=== PATIENT | female | born 1955 | race Caucasian/White ===

== ENCOUNTER → 2021-08-11 | Outpatient (CLI) | payer MEDICARE, SELFPAY ==
--- NOTE | 2021-08-11 12:53 | CT_ITS ---
STUDY: CT SOFT TISSUE NECK WITH CONTRAST REASON FOR EXAM: Female, 66 years old. CERVICALGIA. MARKED WITH BB RADIATION DOSAGE (If Supplied By Facility): CTDIvol = ( 14.01 ) mGy, DLP = ( 416.65 ) mGycm TECHNIQUE: The patient was scanned in a multi-detector CT scanner. High resolution transaxial imaging was performed following intravenous administration of IV 75mL Isovue-300. Sagittal and coronal images were reconstructed. Individualized dose optimization techniques were used for this CT. COMPARISON: None. FINDINGS: Normal bilateral parotid glands. Normal bilateral head of design spaces. Normal bilateral parapharyngeal spaces. Normal bilateral carotid spaces. Normal bilateral sublingual and submandibular glands and spaces. Normal visualized nasopharynx. Normal retropharyngeal space. Normal perivertebral space. Normal visualized bilateral faucial tonsils. The visualized tongue, tongue base and oropharynx are normal. The visualized cervical lymph nodes (levels I-) are within normal size limits, and maintain normal morphology. There is no demonstrated solid or cystic mass lesion. There is no abnormal contrast enhancement. Normal epiglottis, bilateral vallecula and hypopharynx. The pre-epiglottic and paraglottic adipose spaces are normal. Normal visualized bilateral piriform sinuses, aryepiglottic folds, vocal cords, and arytenoid-cricoid articulations. Normal subglottic trachea. Normal bilateral lobes of the thyroid gland. Scarring and emphysematous changes with bullous formation in the upper lobes. Normal visualized paranasal sinuses. There is degenerative changes of the cervical spine. CT/Soft Tissue Neck WITH Contrast IMPRESSION: No acute abnormality is seen. Electronically Signed: Jon Conteh MD at 14:19 EDT ,
[2021-08-11 13:11] LABS: CREATININE FINGERSTICK < 0.9 mg/dL (0.55-1.02); EGFR FINGERSTICK > 60.0000 mL/min (>60)
== END | disposition home or self-care (01) ==
PROVIDERS: PCP Family Medicine; Referring Provider Otolaryngology; Visit Provider Otolaryngology
DX: M54.2 Cervicalgia (principal); E11.9 Type 2 diabetes mellitus without complications; I10 Essential (primary) hypertension
CPT/HCPCS: 70491; Q9967

== ENCOUNTER 2022-07-06 05:33 | Observation (INO) | payer MEDICARE, SELFPAY ==
[2022-07-06] VITALS (8 sets, daily range): BP systolic 114–155; BP diastolic 58–88; PULSE 57–71; RESP 16–18; TEMP 36.1–36.6; O2SAT 96–100; BMI 26.1
--- NOTE | 2022-07-06 05:45 | EKG12_ITS ---
Test Reason : CHEST PAIN Blood Pressure : / mmHG Vent. Rate : 058 BPM Atrial Rate : 058 BPM P-R Int : 192 ms QRS Dur : 088 ms QT Int : 426 ms P-R-T Axes : 063 032 045 degrees QTc Int : 418 ms Sinus bradycardia Possible Left atrial enlargement T wave abnormality, consider anterior ischemia Abnormal ECG No previous ECGs available Confirmed by CALLI MILLER, LUCIEN ([id number]), editor news EDDIE MUNOZ ([id number]) on 07/06/2022 1:31:04 PM Referred By: Confirmed By:LUCIEN MCCURDY MD
--- NOTE | 2022-07-06 05:53 | PCM.HP.STD ---
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 Her chest pain is intermittent. Patient was transferred from outside hospital emergency department to our hospital because of patient's preference. Of note patient was to be transferred from [facility] ED to [facility]. However there was a waiting list and because patient could not wait she opted that she be transferred to our hospital ([facility]). Of note patient had a routine appointment with her PCP scheduled on 07/05/2022 so she was hoping that with a routine appointment she would discuss her chest pain with her PCP. And on 07/05/2022 her chest pain actually got worse. She reports that the pain is at the left side of her chest in a box fashion; encircling her left arm; and left scapula. Moving her left arm or engaging in physical activity worsens her pain. Her pain improves with rest. Associated with symptom is diaphoresis and nausea. She denies any shortness of breath. She describes her chest pain as tightness with highest severity of 9 out of 10. At the PCPs appointment she was sent to the hospital for some labs. Also an EKG was done at the PCPs office. Because troponin was elevated her PCP called her to go to the emergency department. [facility] Medical History (Updated 07/06/22 @ 06:[address] Fabricio Uribe MD) DDD (degenerative disc disease) Hypertension Home Medications cetirizine 10 mg tablet (Zyrtec) 10 mg PO DAILY 07/06/22 [History Last Taken Unknown] famotidine 20 mg tablet 20 mg PO BID 07/06/22 [History Last Taken Unknown] lisinopril 5 mg tablet 10 mg PO BID 07/06/22 [History Last Taken Unknown] tramadol 50 mg tablet 50 mg PO Q6H PRN Pain 07/06/22 [History Last Taken Unknown] Allergy/AdvReac Type Severity Reaction Status Date / Time acetaminophen [From Percocet] Allergy Upset Verified 07/06/22 04:41 Stomach bee venom protein (honey bee) Allergy Hives Verified 07/06/22 04:41 oxycodone [From Percocet] Allergy Upset Verified 07/06/22 04:41 Stomach Family History (Updated 07/06/22 @ 06:[address] Fabricio Uribe MD) Other Diabetes Heart disease Surgical History (Updated 07/06/22 @ 06:[address] Fabricio Uribe MD) H/O: hysterectomy Hx of appendectomy Social History (Updated 07/06/22 @ 06:[address] Fabricio Uribe MD) Smoking Status: Former smoker ROS ROS Narrative Pertinent positives and pertinent negatives as noted in HPI. All other systems were reviewed and are negative Vital Signs Vital Signs Vital Signs: 07/06/22 04:25 07/06/22 05:00 Temperature 97.9 F Temperature Source Temporal Pulse Rate 71 Pulse Strength Normal (2+) Respiratory Rate 16 Blood Pressure 155/86 H Blood Pressure Mean 109 Blood Pressure Source Monitor Blood Pressure Position Semi-Fowlers Blood Pressure Location Left Arm Pulse Ox 97 Oxygen Delivery Method Room Air Weight Weight: 68.946 kg Body Mass Index (BMI) 26.1 Physical Exam Narrative Physical exam: General: Well-nourished, well-developed. Head: Normocephalic, atraumatic, no tenderness Eyes: Vision is grossly intact. EOMI ENT, no trauma, moist mucous membranes, no rhinorrhea Neck: Nontender, No thyromegaly. CVS: Regular rate and rhythm. S1-S2 present. No murmur, gallop or rub. Respiratory : clear to auscultation bilaterally, chest wall nontender Abdomen: Soft, nontender, nondistended, normal bowel sounds, no masses : Deferred Back: Nontender, no CVA tenderness, no midline spinal tenderness, deformities, step-offs Extremities: Nontender full range of motion, no trauma Skin: Normal color, no trauma, abrasions Neuro: Alert, oriented, cranial nerves II through XII grossly intact. Psychiatry: Normal mood. Normal affect. Not depressed. Not anxious. Assessment & Plan Assessment/Plan (1) NSTEMI, initial episode of care: (2) Hypertension: PLAN: Plan NSTEMI High sensitivity troponin was 172.[address] a monitored bed at PCU Chest x-ray at outside hospital by radiologist conclusion: No acute disease. No significant change. Full dose aspirin x1 ordered. ASA 81 mg p.o. daily. SL NTG 0.4 mg prn as needed for chest pain ordered Check lipid panel. Statin: High intensity statin ordered. Started on a heparin drip at outside hospital. Discussed case with cardiology. We will stop heparin drip as cardiology is considering heart cath soon as possible. Keep n.p.o. except meds Cardiology consult Hypertension Blood pressure is not within goal Home Blood pressure medication continued. Trend blood pressure and adjust blood pressure medications. Tobacco abuse Reports quitting about 2 months ago. Counseled. DVT prophylaxis Subcutaneous Lovenox ordered. Charges/Coding Visit Charges Inpatient E&M: 43466 Init Hosp L2
[2022-07-06] MEDS: 0.9% Normal Saline 1,000 ML 75 ML IV (06:22)
[2022-07-06] MEDS: Aspirin 81 MG TAB.CHEW 324 MG PO (06:32)
[2022-07-06] MEDS: Lisinopril 10 MG Tablet PO (06:37)
[2022-07-06] MEDS: 0.9% Normal Saline 1,000 ML 15 ML IV (07:38)
--- NOTE | 2022-07-06 07:45 | PCM.CONS.C ---
Assessment & Plan Assessment/Plan (1) Hypertension: PLAN: She does have a history of high blood pressure and the plan to be to continue him treating her with her current medical therapy. We will optimize her medical therapy for this. (2) Chest pain: PLAN: She does have some chest discomfort which appears to be somewhat atypical. Due to the recurrence of this chest discomfort it may be prudent for us to evaluate this with an invasive approach and depending on the findings further recommendations will be made. Addendum: Left heart catheterization demonstrated the following: Normal left main coronary artery. Left anterior descending artery with mid 90% stenosis followed by another area of 80% stenosis. Left circumflex artery with proximal 80% stenosis. Right coronary artery which is dominant and small with 30% stenosis. Preserved left ventricular systolic function. Based on the above angiographic findings we will consider PCI to the above vessels. Thank you for allowing me to participate in the care of your patient. Please don't hesitate to call if any issues arise. 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 and which has been present on a daily basis for the past 1 month.? Her chest pain is intermittent.? Patient was transferred from outside hospital emergency department to our hospital because of patient's preference.? Of note patient was to be transferred from [facility] ED? to [facility].? However there was a waiting list and because patient could not wait she opted? that she be transferred to our? hospital ([facility]). Of note patient had a routine appointment with her PCP scheduled on 07/05/2022 so she was hoping that with a routine appointment she would discuss her chest pain with her PCP.? And on 07/05/2022 her chest pain actually got worse.? She reports that the pain is at the left side of her chest. Interestingly moving her left arm? or? engaging in physical activity worsens her pain.? Her pain improves with rest.? Associated with? symptom is diaphoresis and nausea.? She denies any shortness of breath.? She describes her chest pain as tightness with highest severity of 9 out of 10. She was sent to do some labs which were reportedly abnormal as well as an EKG and so she was sent to the emergency room and was subsequently transferred here for cardiology evaluation. [facility] Medical History DDD (degenerative disc disease) Hypertension Home Medications cetirizine 10 mg tablet (Zyrtec) 10 mg PO DAILY 07/06/22 [History Last Taken Unknown] famotidine 20 mg tablet 20 mg PO BID 07/06/22 [History Last Taken Unknown] lisinopril 5 mg tablet 10 mg PO BID 07/06/22 [History Last Taken Unknown] tramadol 50 mg tablet 50 mg PO Q6H PRN Pain 07/06/22 [History Last Taken Unknown] Allergy/AdvReac Type Severity Reaction Status Date / Time acetaminophen [From Percocet] Allergy Upset Verified 07/06/22 04:41 Stomach bee venom protein (honey bee) Allergy Hives Verified 07/06/22 04:41 oxycodone [From Percocet] Allergy Upset Verified 07/06/22 04:41 Stomach Family History Other Diabetes Heart disease Surgical History H/O: hysterectomy Hx of appendectomy Social History Smoking Status: Former smoker ROS Constitutional Constitutional: Denies fever(s) or weight loss Eyes Eyes: Reports systems reviewed and no addt'l complaints, except as documented ENT HEENT: Reports systems reviewed and no addt'l complaints, except as documented Cardiovascular Cardiovascular: Reports chest pain at rest; Denies chest pain with activity, dyspnea at rest, dyspnea on exertion, edema, palpitations or paroxysmal nocturnal dyspnea Respiratory/Chest Respiratory/Chest: Denies dyspnea on exertion, productive cough, shortness of breath at rest or shortness of breath with exertion Gastrointestinal Gastrointestinal: Denies change in bowel habits, nausea, vomiting or weight changes Genitourinary Genitourinary: Denies difficulty urinating Musculoskeletal Musculoskeletal: Denies joint stiffness or muscle weakness Integumentary Integumentary: Denies lesions Neurologic Neurologic: Denies dizziness or syncope Psychiatric Psychiatric: Denies anxiety Endocrine Endocrinology: Denies excessive sweating or fatigue Hematologic/Lymphatic Hematologic/Lymphatic: Denies anemia Allergic/Immunologic Allergic/Immunologic: Denies seasonal rhinorrhea Physical Exam Const alert, oriented x3 and no apparent distress General Appearance: cooperative HEENT hearing grossly normal bilaterally Head and Scalp: atraumatic Eyes EOMs intact bilaterally Neck General: normal visual inspection Chest inspection of chest normal and palpation of chest normal Resp normal respiratory effort Auscultation: clear to auscultation bilaterally Cardio regular rate, regular rhythm, S1 normal heart sound and S2 normal heart sound Jugular Venous Distention: JVD GI normal to inspection, nondistended, normoactive bowel sounds Extremity normal capillary refill and no pedal edema Peripheral Pulses: Yes pulses 2+ throughout and femoral pulses present Skin no rashes or lesions noted Neuro oriented x3 and CN's II-XII intact bilaterally Psych Appearance: grossly normal and appropriate Risk Stratification Risk Stratification Applicable: Yes Age >/= 65: Yes >/= 3 CAD Risk Factors (HTN, HLD, DM, family hx of CAD, or current smoker): No Aspirin Use in the Past 7 Days: No Severe Angina (>/= episodes in 24 hours): No EKG ST Changes >/= 0.5mm: No Positive Cardiac Marker: No AIDA Risk Stratification Score: 1 AIDA % Risk: 5% Risk Objective Data Vital Signs: Vital Signs Temp Pulse Resp BP Pulse Ox O2 Del Method 97.9 F 71 16 155/86 H 97 Room Air 07/06/22 04:25 07/06/22 04:25 07/06/22 04:25 07/06/22 04:25 07/06/22 04:25 07/06/22 04:25 Oxygen Delivery Method Room Air Weight: 152 lb Body Mass Index (BMI) 26.1 Cardiology Labs/Tests Rhythm: EKG: ECHO: Stress Test: Cardiac Cath: PCI: CT Surgery: Holter monitor: EPS: PPM: CXR: Chest CT Scan:
--- NOTE | 2022-07-06 08:33 | CL.D_ITS ---
Patient Name: KHURRAM HUNTLEY Study Date: 07/06/2022 Performing: Teo Velazquez MD Ht: 64 inches 162.56 cm : 1955 Wt: 152.01 lbs 68.95 kg Age: 67 Gender: female BSA: 1.74 PROCEDURE(S) PERFORMED DC01-([id number])LHC/COR/LV CLINICAL PROFILE AND INDICATIONS Indications: Suspected CAD Heart Failure: None Stress/Imaging Stress/Image Study Performed: No Angina Classification Anginal Classification w/in 2 Weeks: CCS III CAD Presentations: Unstable angina. 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 RECOMMENDATIONS Referred for immediate PCI DESCRIPTION OF PROCEDURE The patient arrived to the procedure lab. The risks and benefits of the procedure as well as a full description of our services here and current unavailability of surgical backup were fully explained to the patient and/or their significant other prior to the catheterization. The Timeout was completed, verifying the correct patient and procedure. The patient's procedural site was prepped and draped in the usual fashion. Local anesthetic was given subcutaneously to right radial region with Lidocaine 2%. Using a modified Seldinger technique, arterial access was obtained via the right radial artery, a 6Fr sheath was inserted. Right Coronary Artery selective angiography was then performed in multiple views using a 5 Fr. 4.0 [place] catheter. Left Coronary Artery selective angiography was performed in multiple views using a 5 Fr. 4.0 [place] catheter. Left Ventriculography was performed in CINTRON projection using a 5 Fr. Pigtail catheter. LV to AO pullback pressures were then recorded. CORONARY ANGIOGRAPHY DOMINANCE: Right Dominant LEFT HEART ASSESSMENT Left Ventricular Ejection Fraction: by LV Gram 65 % Normal LV wall motion Normal Left Ventricular systolic function LEFT MAIN: Angiographically normal LEFT ANTERIOR DESCENDING ARTERY: Medium size vessel with mild calcification with tortuosity and an 80 to 90% mid stenotic lesion followed by an 80% long lesion. CIRCUMFLEX ARTERY: Medium size vessel with long 70 to 80% mid segment stenosis RAMUS: No significant disease noted RIGHT CORONARY ARTERY: Mild luminal irregularities less than 30% COMPLICATIONS PROCEDURE MEDICATIONS Versed 1 mg IV Fentanyl 50 mcg IV Versed 1 mg IV Oxygen: 2 L/min via nasal cannula Brilinta 180 mg PO @ 07/06/2022 08:19:44 Heparin given IA 07/06/2022 08:04:03 Verapamil 2.5mg, Ntg 100mcgs, 3000 units of Heparin given IA 07/06/2022 08:04:03 IV Bolus: .9 NaCl ml total 07/06/2022 08:08:50 SUMMARY OF HEMODYNAMIC DATA Time AIR REST AO 83/54 (68) SA 08:07:46 ECG 08:07:57 LV 72/2, 6 08:16:37 LV 74/3, 5 08:16:44 LV 80/4, 8 08:17:20 LV 79/8, 13 08:17:27 LVp 77/6, 9 08:17:33 AOp 79/43 (58) 08:17:38 Signed By Teo Velazquez MD On 07/06/2022 08:32:40 Teo Velazquez MD
--- NOTE | 2022-07-06 09:52 | CASEMGMT ---
Tertiary facilities in-network with patient's insurance: Jenny Smith, Bj Davidson, Lina , PAM Field, LETTY Ramirez, Derrick Vuong
[2022-07-06] MEDS: Loratadine 10 MG Tablet PO (10:09)
[2022-07-06] MEDS: Famotidine 20 MG Tablet PO (10:09)
--- NOTE | 2022-07-06 12:36 | NURSING ---
Report was called to [facility] at [facility] to Rosa PARDO. Per Rosa, pt is to go straight to laboratory specialist and not [facility]. Transport will be notified when they arrive to pick pt up.
== END 2022-07-06 12:20 | disposition short-term general hospital (02) ==
PROVIDERS: Admitting Provider Hospitalist; PCP Family Medicine; Visit Provider Internal Medicine
DX: I21.4 Non-ST elevation (NSTEMI) myocardial infarction (principal); I25.110 Atherosclerotic heart disease of native coronary artery with unstable angina pectoris; I10 Essential (primary) hypertension; Z87.891 Personal history of nicotine dependence; M51.36 Other intervertebral disc degeneration, lumbar region; Z79.899 Other long term (current) drug therapy
CPT/HCPCS: 93005; 93458; 96360; 96361; 99152; 99153; 99221; J7030; C1769; C1894; G0378; Q9967

== ENCOUNTER → 2022-08-15 | Outpatient (CLI) | payer MEDICARE, SELFPAY ==
--- NOTE | 2022-08-15 14:13 | PCM.CR.HP2 ---
CR - History & Physical General Arrival date:: 08/15/22 Arrival time:: 14:13 Date of Referral:: 07/17/22 Date of CR Evaluation:: 08/15/22 Referring Physician: Dr. Teo Velazquez Primary Diagnosis: PCi with stent History of Present Cardiac Event Onset Date PTCA or coronary stenting:: Yes Vessel: 07/07/22 LAD, circumflex Medications Ambulatory Orders Medication Instructions Recorded cetirizine 10 mg tablet (Zyrtec) 10 mg PO DAILY 07/06/22 tramadol 50 mg tablet 50 mg PO Q6H PRN Pain 07/06/22 amlodipine 5 mg tablet 5 mg PO DAILY 07/17/22 aspirin 81 mg tablet,delayed 81 mg PO DAILY 07/17/22 release (Adult Low Dose Aspirin) carvedilol 6.25 mg tablet (Coreg) 6.25 mg PO BID 07/17/22 lisinopril 5 mg tablet 5 mg PO BID 07/17/22 nitroglycerin 0.4 mg sublingual 0.4 mg sublingual Q5M PRN 07/17/22 tablet pantoprazole 40 mg tablet,delayed 40 mg PO DAILY 07/17/22 release pravastatin 40 mg tablet 40 mg PO DAILY #90 tabs 07/17/22 ticagrelor 90 mg tablet (Brilinta) 90 mg PO BID 07/17/22 Allergies Allergies acetaminophen [From Percocet] Allergy (Verified 07/17/22 10:26) Upset Stomach bee venom protein (honey bee) Allergy (Verified 07/17/22 10:26) Hives oxycodone [From Percocet] Allergy (Verified 07/17/22 10:26) Upset Stomach Sleep Disorder Evaluation Hx of Sleep Apnea: No Do you snore loudly (louder than talking or can be heard through closed doors)?: Yes Do you often feel tired/ fatigued/ sleepy during daytime?: No Has anyone observed you stop breathing during sleep?: No History of Hypertension (for STOP score): Yes STOP Results: Positive Advanced Directives Advanced Directives Power of Shelter Supervisor: No Living Will: No Advance Directives Information Provided: No Advance Directives on File: No Past Medical History Covid-19 Screening Physicial Symptoms Other Clinical Concerns Exposure Risk Pertinent Comorbidities 65 years or older:: Yes Has a serious heart condition:: Yes Past Medical Illness Past Medical History (Updated 07/17/22 @ 10:59 by Marilin KNIGHT PA) DDD (degenerative disc disease) Hypertension I10 Past Surgical History Past Surgical History (Updated 07/17/22 @ 10:59 by Marilin KNIGHT, PA) H/O: hysterectomy Z90.710 History of heart artery stent Z95.5 Hx of appendectomy Z90.49 Family History Summary Family History Other Diabetes Heart disease Social History Smoking History Smoking Status: Light Smoker (<10/day) Years Smokin (1 to 2 cigarettes a day) Alcohol Use Alcohol Usage: No Occupation 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 work 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):: 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 Hours worked per day:: 8 Returned to work on:: 07/13/22 Hobbies, Recreation, Social Activities Hobbies: Other (gardening, crafts) Recreational Activities: I am able to engage in all my recreational activities Social Environment Status Marital Status: Safety Do you feel safe in your surroundings?: Yes Assistance Do you need any assistance at home?: no Review of Systems Review of Systems Hints Review of Present Symptoms: Reports Dizziness/Lightheadedness, Fatigue, Appetite - Normal and Sleep - Normal; Denies Shortness of Breath at Rest, Shortness of Breath with Exertion, PVD, Operative Discomfort, Angina, Wound Healing, Heart Arrhythmia/Irregularities, Appetite - Special Diet or Sexual Changes Pain Pain Location: back Pain Level: 1/10 Risk Factor Assessment Vital Signs Blood Pressure: 113/77 Pulse Pulse Rate: 66 Hypertension How long have you been treated?: 17 years Blood Pressure Sitting - Right Arm: 113/77 Stress Stress: Home/Family Obesity Height: 5 ft 4 in Weight:: 153 lb Weight in Pounds: 153.0 lbs Body Mass Index (BMI): 26.2 Nutritional Referral for Obesity: No Physical Inactivity Physical Inactivity: Physically demanding job Risk Stratification Risk Guidelines: Lowest Risk: Risk Factor for Smoking, Moderate Risk: Risk Factor for Dyslipidemia, Risk Factor for Diabetes, Risk Factor for Obesity, Risk Factor for Sedentary Lifestyle and Risk Factor for Depression and Highest Risk: Risk Factor for Hypertension For Smoking Smoking Risk Guidelines For Dyslipidemia Dyslipidemia Risk Guidelines For Diabetes Mellitus Diabetes Risk Guidelines For Obesity/Overweight Obesity/Overweight Risk Guidelines For Hypertension Hypertension Risk Guidelines For Sedentary Lifestyle Sedentary Lifestyle Risk Guidelines For Depression Depression Risk Guidelines Family History Family History Other Diabetes Heart disease Motivation Motivation to Participate On a scale of 1 to 10, how prepared are you to commit to attending program?: 7 What do you see as barriers to successfully being able to complete the program?: no What do you see as the benefits of succesfully completing the program? In other words, what do you hope to get out of participating in the program?: education Are there issues you are dealing with that will interfere with completing the program?: no Do you have a spouse or signficant other, family or friends who will help support you to complete the program?: yes
[2022-08-15 14:35] VITALS: BP 113/77; PULSE 66; BMI 26.2
--- NOTE | 2022-08-15 15:03 | CR.ITP_ITS ---
Diagnosis General Information Admitting Diagnosis: PCi with stent Barriers to Learning: No Barriers Stage of change r/t lifestyle modifications:: Contemplation Gave educational material for:: Treating Heart Disease, How The Heart Works, What it means to have Heart Disease, How Coronary Artery Disease is Diagnosed, Heart Procedures, What Heart Medications Do, Risk Factors & Modifications, Living an Active Life, Nutrition, Emotions & Heart Disease, Stress Management & Relaxation and Sleep Disorders & Heart Disease Education/Goals Cardiac Rehabilitation Goals Personal Goals: Initial Assessment: Improve muscle strength and endurance, Improve diet and eating habits (eat healthier) and Control risk factors (learn risk factor modification) Scale for measuring improvement of personal goals Diagnosis & Disease Process Outcomes/Goals: Pt IDs own risk factors & lifestyle modifications by Session 10, Verbalizes symptoms of angina & response by session 3., Pt independently manages and Other Additional Outcomes/Goals: Plan/Interventions: Assist Pt to ID & engage in lifestyle modification to reduce CVD risk, Instruct on individual risk factors, Review symptoms of angina & emergency actions, Review secondary diagnosis & identify educational needs. and Other see comment 30 day Reassessments:: Not Met 30 day Reassessments:: Not Met 30 day Reassessments:: Not Met 30 day Reassessments:: Not Met Final Reassessments:: Not Met Safety Referral to Physical Therapy: No Referral to [facility] Case Management: No Fall Risk Assessed:: Yes Assistive Devices:: None Exercise - Initial Assessment Visit Date of Eval: 08/15/22 (initial eval ) Mets: Pre-: >3 METS for 30 minutes by discharge, >5 METS for 30 minutes by discharge, >7 METS for 30 minutes by discharge and Unable to meet goal due to: (see comment below) Physician Prescribed Exercise Modalities: Treadmill, Rower, Airdyne, NuStep, SciFit and Lateral Research Instrumentation Technician Frequency: 3x/week for 12 weeks [36 sessions] Intensity: 60-80% of age predicted maximum heart rate reserve Current METSs:: 3 Target Heart Rate:: 92-108 Resting Blood Pressure: 113/77 Outcomes & Goals Goals:: Verbalizes understanding of THR, RPE & goal METS by session 6, Documents in home exercise log/reports 30 min aerobic 5 day/wk by DC, Demonstrates accurate pulse taking by DC and Other additional outcome/goals: see below Intervention & Plan Exercise Program Goals: Instruct on personal THR & RPE, Instruct on MET level & personal MET goal, Show patient to take own pulse /validate performance until accurate, Instruct on home exercise and Other additional plan/int Physical Activity Home Exercise Physical Activity - Home Exercise: Safe Exercise, Warm-up, Self-monitoring, Cool-Down, Home Exercise > 30 min Daily and Sitting Time <3 hours/daily Outcomes & Goals Outcomes/Goals: Demonstrates correct Warm-up/exercise Cool-Down (S3) if = 2.5 METs, Verbalizes symptoms of exercise intolerance by Session 3 (S3), Demonstrate safe equipment use (S3) & follows exercise prescrition (6) and Other: See below Intervention & Plan Plan/Intervention: Instruct warm-up & cool-down if exercising at > 2 METs, Instruct on symptoms of exercise intolerance & actions to take, Instruct & monitor on saf, Assess intial functional capacity & safety risk and Other See below Nutrition - Initial Assessment Visit Date of Eval: 08/15/22 (initial eval ) Cholesterol/Lipids (Other Core Measures) Determine presence & major risk factors that modify LDL goal: Cigarette smoking, Hypertension or hypertensive medication, Low HDL cholesterol <40 mg/dL*, Family history of premature CHD in Male < 55 years: female <65 yearsFa and Age men > 45 years; women >/= 55 years Outcomes/Goals: Pt IDs own risk factors & lifestyle modifications by Session 10, Verbalizes symptoms of angina & response by session 3., Pt independently manages and Other Additional Outcomes/Goals: Intervention/Plan: Advocate for lipid panel cholesterol medication if applicable, Instruct on personal lipid levels & lipid goals/NCEP guidelines, Instruct on cholesterol and Other additional plan/int Diabetes (Other Core Measures) Diabetes Type: Not Applicable Weight Mgt (Other Care) Height: 5 ft 4 in Weight:: 153 lb BMI: 26.2 Diagnosis Overweight/Obesity BMI> 30% ICD-10 E66: No Diagnosis High BMI/Morbid Obesity BMI> 35% ICD-10 Z68: No Outcomes/Goals: Pt sets, maintains & shows weight loss goal & trend during rehab and Other additional outcomes/goals Intervention/Plan: Instruct on ideal BMI & set weight loss goal w/patient, Assist pt to ID & incorporate diet changes for weight loss by S9, Refer to Structured Weight Loss program as appropriate, Encourage goal of using 250- 300dcal per session for weight loss and Other additional plan/interventions Healthy Eating Habits Will attend diet classes:: Yes Outcomes/Goals:: Consume diet rich in vegs,fruits,whole grain/high fiber ,fish,lean meat, Limit sat/trans fats,cholesterol & added salts & sugars and Other additional outcome/goals: Intervention/Plan:: Assess current eating habits and Other Additional plan/interventions Education Gave educational materials for:: Signs & symptoms of hypoglycemia, Signs & symptoms of hyperglycemia, Relate diabetes to coronary artery disease and Healthy eating Core - Initial Assessment Visit Date of Eval: 08/15/22 (initial eval ) Medication Compliance Preventative Medication(s):: Aspirin, Ticagrelor/P2Y12 inhibitor, Statin/lipid and Beta tanya H/O mental health issues: depression, anxiety, or addiction?: No Doesn?t believe in the benefits of treatment?: No Believes medications are unnecessary or harmful?: No Has a concern about medication side effects?: No Expresses concern over the cost of medications?: No Outcomes/Goals: Verbalizes medications,desired effect & common side effects @ DC, Pt self-reports following medication regimen, Keeps card in wallet w/medications listed by DC and Other additional outcome/goals: Interventions/plans: Instruct on medication effects & side effects, Review medication list w/patient every two weeks, Instruct importance of taking meds as ordered & assist problem solving and Other additional Tobacco Use Tobacco Use: Cigarettes How many cigarettes do you smoke per day?: 2 Years Smokin Do you use smokeless tobacco?: No Outcomes/Goals: Smoking cessation achieved or maintained by discharge, Identify aids/strategies for achieving smoking cessation by session 6 and Other additional outcome/goals Interventions/plan: Instruct on effects of smoking & provide smoking cessation resource, Assist pt to set quit date & provide encouragement, Assist pt to develop strategies to achieve/maintain quit date, Assist pt w/nicotine replacement & medication for cessation success and Other additional plan/interve ntions Hypertension Hypertension Diagnosis:: Hypertension ICD-10 I10 Resting Blood Pressure:: 113/77 [place] [employer] Hypertension Guidelines Outcomes/Goals: Able to verbalize/achieve optimal blood pressure <130/80, Incorporates diet changes & exercise for blood pressure control by DC and Other additional outcomes/goals Interventions/plan: Instruct on optimal blood pressure, hypertension & medications, Instruct on effects of sodium, alcohol, stress, exercise &hypertension and Other additional plan/interventions Tobacco Cessation Referral Smoking Cessation Referral:: No Individual Education/Counseling:: No Education Schedule Given:: Yes Psychosocial - Initial Assess VIsit Date of Eval: 08/15/22 (initial eval ) History of previous Mental disease:: No Target Goals Target Goals Patient Health Questionnaire PHQ-9 Screening Initial Assessment: 1. Little interest or pleasure in doing things: Not at all 2. Feeling down, depressed, or hopeless: Not at all 3. Trouble falling or staying asleep, or sleeping too much: Several days 4. Feeling tired or having little energy: Several days 5. Poor appetite or overeating: Not at all 6. Feeling bad about yourself -- or that you are a failure or have let yourself or your family down: Not at all 7. Trouble concentrating on things, such as reading the newspaper or watching television: Not at all 8. Moving or speaking so slowly that other people could have noticed. Or the opposite - being so fidgety or restless that you have been moving around a lot more than usual: Not at all 9. Thoughts that you would be better off , or of hurting yourself in some way: Not at all How difficult have these problems made it for you to do your work, take care of things at home, or get along with other people?: Not difficult at all Total Score: 2 AXEL-Q SV Test Statements CAD is a disease of the arteries in the heart: False Examples of risk factors for heart disease: True Angina is chest pain or discomfort: True The benefits of resistance training include: True Eating more meat and dairy products: False Anti-platelet medications such as aspirin are important: I Don't Know The only effective way to manage stress: False An exercise warm-up slowly increases heart rate: True Prepared, processed foods usually have high sodium: True Depression is common after a heart attack: True The statin medications lower cholesterol: True To control blood pressure, lower the amount of sodium: True If someone gets chest discomfort during walking: False Transfats are partially hydrogenated vegetable oils: False Sleep apnea that is not treated increases the risk: I Don't Know To control cholesterol, one should become a vegetarian: False Someone knows if he/she is exercising at the right level: True Diabetes cannot be prevented with exercise & health eating: False Stress is a large risk for heart attack: True A diet that can help lower blood pressure is rich in: True Total Score Total Correct Responses: 17 Nutrition Survey Nutrition Survey Instructions Scoring Instructions Nutrition Survey Initial: Have you lost >10 lbs over the past 2 months without trying?: No Are you following a special diet at home for diabetes, low fat, or low salt?: No Do you eat less than 3 meals a day?: Yes Do you eat fatty meats ([place], sausage, ribs, etc), fried foods, desserts, large amounts of salad dressings, margarine, butter, or cheese most days?: No Do you eat in restaurants more than 3 times a week?: No Do you used canned, boxed, frozen meals, or soups, seasoning packets?: No Exercise - Final/Discharge Physician Prescribed Exercise Modalities: Treadmill, Rower, Airdyne, NuStep, SciFit and Lateral Research Instrumentation Technician Frequency: 3x/week for 12 weeks [36 sessions] Intensity: 60-80% of age predicted maximum heart rate reserve Current METSs:: 3 Target Heart Rate:: 92-108 Nutrition - 30-Day Assessment Weight Mgt (Other Care) Height: 5 ft 4 in Weight:: 153 lb BMI: 26.2 Nutrition - 60-Day Assessment Weight Mgt (Other Care) Height: 5 ft 4 in Weight:: 153 lb BMI: 26.2 Core - 30-Day Assessment Tobacco Use Years Smokin Core - Final Assessment Hypertension Resting Blood Pressure:: 113/77 [place] [employer] Hypertension Guidelines Core - 60-Day Assessment Hypertension Resting Blood Pressure:: 113/77 [place] [employer] Hypertension Guidelines Psychosocial - 30-Day Assess Target Goals Target Goals Psychosocial - 60-Day Assess Target Goals Target Goals Psychosocial - 90-Day Assess Target Goals Target Goals Psychosocial - Final Assessmen Target Goals Target Goals Nutrition - 90-Day Assessment Weight Mgt (Other Care) Height: 5 ft 4 in Weight:: 153 lb BMI: 26.2 Nutrition - Final Assessment Weight Mgt (Other Care) Height: 5 ft 4 in Weight:: 153 lb BMI: 26.2
[2022-08-15 15:15] VITALS: BP 113/77; BMI 26.2
== END | disposition home or self-care (01) ==
LOC: CR 14:04
PROVIDERS: PCP Family Medicine; Referring Provider Internal Medicine Cardiovascular Disease; Visit Provider Internal Medicine Cardiovascular Disease
DX: Z95.5 Presence of coronary angioplasty implant and graft (principal)

== ENCOUNTER 2022-09-10 10:15 | Outpatient (RCR) | payer MEDICARE, SELFPAY ==
[2022-08-15 15:15] VITALS: BMI 26.2
== END 2022-09-10 23:59 ==
LOC: CR 10:15
PROVIDERS: PCP Family Medicine; Referring Provider Internal Medicine Cardiovascular Disease; Visit Provider Internal Medicine Cardiovascular Disease
DX: Z95.5 Presence of coronary angioplasty implant and graft (principal); I22.2 Subsequent non-ST elevation (NSTEMI) myocardial infarction
CPT/HCPCS: 93798

== ENCOUNTER 2022-10-10 10:15 | Outpatient (RCR) | payer MEDICARE, SELFPAY ==
[2022-08-15 15:15] VITALS: BMI 26.2
--- NOTE | 2022-09-14 07:10 | PCM.CR.ITP ---
Exercise - Initial Assessment Visit Session #:: 12 Nutrition - Initial Assessment Weight Mgt (Other Care) Height: 5 ft 4 in Weight:: 155 lb BMI: 26.6 Psychosocial - Initial Assess Target Goals Target Goals Referral to Behavioral Health PS - Interventions: Yes: Attend Stress Management Classes and No: Referral to Behavioral Health if PHQ-9 score >9:, No: Referral to [facility] and No: Referral to Physician if PHQ-9 if score is 5-9: Patient Health Questionnaire PHQ-9 Screening 30-Day Re-eval Assessment: 1. Little interest or pleasure in doing things: Not at all 2. Feeling down, depressed, or hopeless: Not at all 3. Trouble falling or staying asleep, or sleeping too much: Several days 4. Feeling tired or having little energy: Several days 5. Poor appetite or overeating: Not at all 6. Feeling bad about yourself -- or that you are a failure or have let yourself or your family down: Not at all 7. Trouble concentrating on things, such as reading the newspaper or watching television: Not at all 8. Moving or speaking so slowly that other people could have noticed. Or the opposite - being so fidgety or restless that you have been moving around a lot more than usual: Not at all 9. Thoughts that you would be better off , or of hurting yourself in some way: Not at all How difficult have these problems made it for you to do your work, take care of things at home, or get along with other people?: Not difficult at all Total Score: 2 Self-Efficacy 6-Item Scale 30-Day Re-eval Assessment: We would like to know how confident you are in doing certain activities. Please select your confidence level for: Fatigue Select Number: 8 Physical Discomfort or Pain Select Number: 8 Emotional Distress Select Number: 9 Other Symptoms or Health Problems Select Number: 9 Different Tasks and Activities Select Number: 9 Medication Select Number: 9 Total Score:: 8 Nutrition Survey Nutrition Survey Instructions Scoring Instructions Exercise - 30-day Assessment Visit Date of Eval: 09/14/22 Session #:: 12 Physician Prescribed Exercise Modalities: Treadmill, Rower and NuStep Frequency: 3x/week for 12 weeks [36 sessions] Intensity: 60-80% of age predicted maximum heart rate reserve Duration: 30 - 45 minutes Current METSs:: 5.0 Target Heart Rate:: 115-131 Current RPE:: 12 Maximum Excercise HR:: 85 Resting Blood Pressure: 108/58 Maximum Exercise Blood Pressure: 148/72 EKG Type: NSR to sinus tach with scooby PVC/PAC noted Current Physical Activity or Exercising minutes: 43:52 Outcomes & Goals Goals:: Verbalizes understanding of THR, RPE & goal METS by session 6, Documents in home exercise log/reports 30 min aerobic 5 day/wk by DC and Demonstrates accurate pulse taking by DC Intervention & Plan Exercise Program Goals: Instruct on personal THR & RPE, Instruct on MET level & personal MET goal, Show patient to take own pulse /validate performance until accurate and Instruct on home exercise 30-day Reassessments 30 day Reassessments:: Met Physical Activity Home Exercise Physical Activity - Home Exercise: Safe Exercise, Warm-up, Self-monitoring, Cool-Down, Home Exercise > 30 min Daily and Sitting Time <3 hours/daily Outcomes & Goals Outcomes/Goals: Demonstrates correct Warm-up/exercise Cool-Down (S3) if = 2.5 METs, Verbalizes symptoms of exercise intolerance by Session 3 (S3) and Demonstrate safe equipment use (S3) & follows exercise prescrition (6) Intervention & Plan Plan/Intervention: Instruct warm-up & cool-down if exercising at > 2 METs, Instruct on symptoms of exercise intolerance & actions to take, Instruct & monitor on saf and Assess intial functional capacity & safety risk 30-day Reassessments 30 day Reassessments:: Met Nutrition - 30-Day Assessment Program Goals Nutrition Program Goals Patient has diagnosis of Hyperlipidemia (ICD E78)?: Yes Visit Date of Eval: 09/14/22 Session #:: 12 Cholesterol/Lipids (Other Core Measures) Determine presence & major risk factors that modify LDL goal: Hypertension or hypertensive medication and Age men > 45 years; women >/= 55 years Outcomes/Goals: Pt IDs own risk factors & lifestyle modifications by Session 10, Verbalizes symptoms of angina & response by session 3. and Pt independently manages Intervention/Plan: Instruct on personal lipid levels & lipid goals/NCEP guidelines and Instruct on cholesterol Referral to dietitian:: Yes 30-day Reassessments:: Progressing Diabetes (Other Core Measures) Diabetes Type: Not Applicable Weight Mgt (Other Care) Not Applicable: Yes Height: 5 ft 4 in Weight:: 155 lb BMI: 26.6 Diagnosis Overweight/Obesity BMI> 30% ICD-10 E66: No Diagnosis High BMI/Morbid Obesity BMI> 35% ICD-10 Z68: No Outcomes/Goals: Pt sets, maintains & shows weight loss goal & trend during rehab Intervention/Plan: Instruct on ideal BMI & set weight loss goal w/patient 30 day Reassessments:: Met Healthy Eating Habits Will attend diet classes:: Yes Outcomes/Goals:: Consume diet rich in vegs,fruits,whole grain/high fiber,fish,lean meat and Limit sat/trans fats,cholesterol & added salts & sugars Intervention/Plan:: Assess current eating habits 30-day Reassessments:: Progressing Education Gave educational materials for:: Healthy eating Nutrition - 60-Day Assessment Weight Mgt (Other Care) Height: 5 ft 4 in Weight:: 155 lb BMI: 26.6 Core - 30-Day Assessment Visit Date of Eval: 09/14/22 Session #:: 12 Medication Compliance Preventative Medication(s):: Aspirin, Ticagrelor/P2Y12 inhibitor, Statin/lipid and Beta tanya H/O mental health issues: depression, anxiety, or addiction?: No Doesn?t believe in the benefits of treatment?: No Believes medications are unnecessary or harmful?: No Has a concern about medication side effects?: No Expresses concern over the cost of medications?: No Outcomes/Goals: Verbalizes medications,desired effect & common side effects @ DC, Pt self-reports following medication regimen and Keeps card in wallet w/medications listed by DC Interventions/plans: Instruct on medication effects & side effects, Review medication list w/patient every two weeks and Instruct importance of taking meds as ordered & assist problem solving 30-day Reassessments:: Progressing Tobacco Use Tobacco Use: Non-smoker Hypertension Hypertension Diagnosis:: Hypertension ICD-10 I10 Resting Blood Pressure:: 108/58 [place] [employer] Hypertension Guidelines Peak Exercise Blood Pressure:: 148/72 Outcomes/Goals: Able to verbalize/achieve optimal blood pressure <130/80 and Incorporates diet changes & exercise for blood pressure control by DC Interventions/plan: Instruct on optimal blood pressure, hypertension & medications and Instruct on effects of sodium, alcohol, stress, exercise &hypertension 30 day Reassessments:: Met Tobacco Cessation Referral Smoking Cessation Referral:: No Individual Education/Counseling:: No Education Schedule Given:: Yes Psychosocial - 30-Day Assess VIsit Date of Eval: 09/14/22 Session #:: 12 Not Applicable: Yes History of previous Mental disease:: No Target Goals Target Goals Psychosocial Test Tool Used:: PHQ-9 Questionnaire phq-9 Severity Referral to Behavioral Health PS - Interventions: Yes: Attend Stress Management Classes and No: Referral to Behavioral Health if PHQ-9 score >9:, No: Referral to [facility] and No: Referral to Physician if PHQ-9 if score is 5-9: Outcomes/Goals: See list Psychosocial Outcomes/Goals:: ID's personal stressors & 2 strategies to manage stress by discharge Intervention/Plan: See List Interventions/Plan:: Assess stressors,coping strategies & signs of derpression on admission, Instruct/assist pt to develop coping & personal stress Mgt strategies, Instruct patient to recognize signs & symptoms of depression and Instruct patient to recog 30-day Reassessments: 30 day Reassessments:: Progressing Psychosocial - 60-Day Assess Target Goals Target Goals Referral to Behavioral Health PS - Interventions: Yes: Attend Stress Management Classes and No: Referral to Behavioral Health if PHQ-9 score >9:, No: Referral to [facility] and No: Referral to Physician if PHQ-9 if score is 5-9: Outcomes/Goals: See list Psychosocial Outcomes/Goals:: ID's personal stressors & 2 strategies to manage stress by discharge Psychosocial - 90-Day Assess Target Goals Target Goals Referral to Behavioral Health PS - Interventions: Yes: Attend Stress Management Classes and No: Referral to Behavioral Health if PHQ-9 score >9:, No: Referral to [facility] and No: Referral to Physician if PHQ-9 if score is 5-9: Psychosocial - Final Assessmen Target Goals Target Goals Referral to Behavioral Health PS - Interventions: Yes: Attend Stress Management Classes and No: Referral to Behavioral Health if PHQ-9 score >9:, No: Referral to [facility] and No: Referral to Physician if PHQ-9 if score is 5-9: Nutrition - 90-Day Assessment Weight Mgt (Other Care) Height: 5 ft 4 in Weight:: 155 lb BMI: 26.6 Nutrition - Final Assessment Weight Mgt (Other Care) Height: 5 ft 4 in Weight:: 155 lb BMI: 26.6
[2022-09-14 07:14] VITALS: BP 108/58
[2022-09-14 07:20] VITALS: BP 108/58; BMI 26.6
== END 2022-10-11 23:59 ==
LOC: CR 10:15
PROVIDERS: PCP Family Medicine; Referring Provider Internal Medicine Cardiovascular Disease; Visit Provider Internal Medicine Cardiovascular Disease
DX: I22.2 Subsequent non-ST elevation (NSTEMI) myocardial infarction (principal); Z95.5 Presence of coronary angioplasty implant and graft
CPT/HCPCS: 93798

== ENCOUNTER 2022-11-02 10:15 | Outpatient (RCR) | payer MEDICARE, SELFPAY ==
[2022-09-14 07:20] VITALS: BMI 26.6
[2022-10-12 00:38] VITALS: BP 108/58
--- NOTE | 2022-10-17 10:16 | CR.ITP_ITS ---
Nutrition - Initial Assessment Weight Mgt (Other Care) Height: 5 ft 4 in Weight:: 158 lb 8 oz BMI: 27.1 Psychosocial - Initial Assess Target Goals Target Goals Patient Health Questionnaire PHQ-9 Screening 60-Day Re-eval Assessment: 1. Little interest or pleasure in doing things: Not at all 2. Feeling down, depressed, or hopeless: Not at all 3. Trouble falling or staying asleep, or sleeping too much: Several days 4. Feeling tired or having little energy: Several days 5. Poor appetite or overeating: Not at all 6. Feeling bad about yourself -- or that you are a failure or have let yourself or your family down: Not at all 7. Trouble concentrating on things, such as reading the newspaper or watching television: Not at all 8. Moving or speaking so slowly that other people could have noticed. Or the opposite - being so fidgety or restless that you have been moving around a lot more than usual: Not at all 9. Thoughts that you would be better off , or of hurting yourself in some way: Not at all How difficult have these problems made it for you to do your work, take care of things at home, or get along with other people?: Not difficult at all Total Score: 2 Self-Efficacy 6-Item Scale 60-Day Re-eval Assessment: We would like to know how confident you are in doing certain activities. Please select your confidence level for: Fatigue Select Number: 8 Physical Discomfort or Pain Select Number: 8 Emotional Distress Select Number: 9 Other Symptoms or Health Problems Select Number: 9 Different Tasks and Activities Select Number: 9 Medication Select Number: 9 Total Score:: 8 Nutrition Survey Nutrition Survey Instructions Scoring Instructions Exercise - 60-day Assessment Visit Date of Eval: 10/17/22 Session #:: 25 Physician Prescribed Exercise Modalities: Treadmill, Rower and NuStep Frequency: 3x/week for 12 weeks [36 sessions] Intensity: 60-80% of age predicted maximum heart rate reserve Duration: 30 - 45 minutes Current METSs:: 5.5 Target Heart Rate:: 115-131 Current RPE:: 12-12.5 Maximum Excercise HR:: 92 Resting Blood Pressure: 108/52 Maximum Exercise Blood Pressure: 140/68 EKG Type: NSR with rare PAC and rare to occas PVC Outcomes & Goals Goals:: Verbalizes understanding of THR, RPE & goal METS by session 6, Documents in home exercise log/reports 30 min aerobic 5 day/wk by DC, Demonstrates accurate pulse taking by DC and Other additional outcome/goals: see below Intervention & Plan Exercise Program Goals: Instruct on personal THR & RPE, Instruct on MET level & personal MET goal, Show patient to take own pulse /validate performance until accurate, Instruct on home exercise and Other additional plan/int 30-day Reassessments 30 day Reassessments:: Not Met Physical Activity Home Exercise Physical Activity - Home Exercise: Safe Exercise, Warm-up, Self-monitoring, Cool-Down, Home Exercise > 30 min Daily and Sitting Time <3 hours/daily Outcomes & Goals Outcomes/Goals: Demonstrates correct Warm-up/exercise Cool-Down (S3) if = 2.5 METs, Verbalizes symptoms of exercise intolerance by Session 3 (S3), Demonstrate safe equipment use (S3) & follows exercise prescrition (6) and Other: See below Intervention & Plan Plan/Intervention: Instruct warm-up & cool-down if exercising at > 2 METs, Instruct on symptoms of exercise intolerance & actions to take, Instruct & monitor on saf, Assess intial functional capacity & safety risk and Other See below 30-day Reassessments 30 day Reassessments:: Met Nutrition - 30-Day Assessment Weight Mgt (Other Care) Height: 5 ft 4 in Weight:: 158 lb 8 oz BMI: 27.1 Nutrition - 60-Day Assessment Program Goals Nutrition Program Goals Patient has diagnosis of Hyperlipidemia (ICD E78)?: Yes Visit Date of Eval: 10/17/22 Session #:: 25 Cholesterol/Lipids (Other Core Measures) Determine presence & major risk factors that modify LDL goal: Hypertension or hypertensive medication, Low HDL cholesterol <40 mg/dL*, Family history of premature CHD in Male < 55 years: female <65 yearsFa and Age men > 45 years; women >/= 55 years Outcomes/Goals: Pt IDs own risk factors & lifestyle modifications by Session 10, Verbalizes symptoms of angina & response by session 3., Pt independently manages and Other Additional Outcomes/Goals: Intervention/Plan: Advocate for lipid panel cholesterol medication if applicable, Instruct on personal lipid levels & lipid goals/NCEP guidelines, Instruct on cholesterol and Other additional plan/int Referral to dietitian:: Yes 30-day Reassessments:: Progressing Diabetes (Other Core Measures) Diabetes Type: Not Applicable Weight Mgt (Other Care) Height: 5 ft 4 in Weight:: 158 lb 8 oz BMI: 27.1 Diagnosis Overweight/Obesity BMI> 30% ICD-10 E66: No Diagnosis High BMI/Morbid Obesity BMI> 35% ICD-10 Z68: No Outcomes/Goals: Pt sets, maintains & shows weight loss goal & trend during rehab and Other additional outcomes/goals Intervention/Plan: Instruct on ideal BMI & set weight loss goal w/patient, Assist pt to ID & incorporate diet changes for weight loss by S9, Refer to Structured Weight Loss program as appropriate, Encourage goal of using 250- 300dcal per session for weight loss and Other additional plan/interventions 30 day Reassessments:: Met Healthy Eating Habits Will attend diet classes:: Yes Intervention/Plan:: Assess current eating habits and Other Additional plan/interventions 30-day Reassessments:: Met Education Gave educational materials for:: Signs & symptoms of hypoglycemia, Signs & symptoms of hyperglycemia, Relate diabetes to coronary artery disease and Healthy eating Core - 60-Day Assessment Visit Date of Eval: 10/17/22 Session #:: 25 Medication Compliance Preventative Medication(s):: Aspirin, Ticagrelor/P2Y12 inhibitor, Statin/lipid and Beta tanya H/O mental health issues: depression, anxiety, or addiction?: No Doesn?t believe in the benefits of treatment?: No Believes medications are unnecessary or harmful?: No Has a concern about medication side effects?: No Expresses concern over the cost of medications?: No Outcomes/Goals: Verbalizes medications,desired effect & common side effects @ DC, Pt self-reports following medication regimen, Keeps card in wallet w/medications listed by DC and Other additional outcome/goals: Interventions/plans: Instruct on medication effects & side effects, Review medication list w/patient every two weeks, Instruct importance of taking meds as ordered & assist problem solving and Other additional 30-day Reassessments:: Progressing Tobacco Use Tobacco Use: Non-smoker Hypertension Hypertension Diagnosis:: Hypertension ICD-10 I10 Resting Blood Pressure:: 108/52 [place] [employer] Hypertension Guidelines Peak Exercise Blood Pressure:: 140/68 Outcomes/Goals: Able to verbalize/achieve optimal blood pressure <130/80, Incorporates diet changes & exercise for blood pressure control by DC and Other additional outcomes/goals Interventions/plan: Instruct on optimal blood pressure, hypertension & medications, Instruct on effects of sodium, alcohol, stress, exercise &hypertension and Other additional plan/interventions 30 day Reassessments:: Met Tobacco Cessation Referral Smoking Cessation Referral:: No Individual Education/Counseling:: No Education Schedule Given:: Yes Psychosocial - 30-Day Assess Target Goals Target Goals Outcomes/Goals: See list Psychosocial Outcomes/Goals:: ID's personal stressors & 2 strategies to manage stress by discharge and Other Additional outcome/goals: Psychosocial - 60-Day Assess VIsit Date of Eval: 10/17/22 Session #:: 25 History of previous Mental disease:: No Target Goals Target Goals Outcomes/Goals: See list Psychosocial Outcomes/Goals:: ID's personal stressors & 2 strategies to manage stress by discharge and Other Additional outcome/goals: Intervention/Plan: See List Interventions/Plan:: Assess stressors,coping strategies & signs of derpression on admission, Instruct/assist pt to develop coping & personal stress Mgt strategies, Refer to Behavioral Health if appropriate, Refer to Physician if appropriate, Instruct patient to recognize signs & symptoms of depression, Instruct patient to recog and Other additional plan/intervention 30-day Reassessments: 30 day Reassessments:: Met Psychosocial - 90-Day Assess Target Goals Target Goals Psychosocial - Final Assessmen Target Goals Target Goals Nutrition - 90-Day Assessment Weight Mgt (Other Care) Height: 5 ft 4 in Weight:: 158 lb 8 oz BMI: 27.1 Nutrition - Final Assessment Weight Mgt (Other Care) Height: 5 ft 4 in Weight:: 158 lb 8 oz BMI: 27.1
[2022-10-17 10:25] VITALS: BP 108/52; BMI 27.1
== END 2022-11-10 23:59 ==
LOC: CR 10:15
PROVIDERS: PCP Family Medicine; Referring Provider Internal Medicine Cardiovascular Disease; Visit Provider Internal Medicine Cardiovascular Disease
DX: Z95.5 Presence of coronary angioplasty implant and graft (principal); I22.2 Subsequent non-ST elevation (NSTEMI) myocardial infarction
CPT/HCPCS: 93798

== ENCOUNTER 2022-11-12 05:54 | Outpatient (RCR) | payer MEDICARE, SELFPAY ==
[2022-10-17 10:25] VITALS: BMI 27.1
[2022-11-11 00:44] VITALS: BP 108/52; BP 108/58
== END 2022-12-11 23:59 ==
LOC: CR 05:54
PROVIDERS: PCP Family Medicine; Referring Provider Internal Medicine Cardiovascular Disease; Visit Provider Internal Medicine Cardiovascular Disease
DX: Z95.5 Presence of coronary angioplasty implant and graft (principal); I22.2 Subsequent non-ST elevation (NSTEMI) myocardial infarction
CPT/HCPCS: 93798

== ENCOUNTER → 2023-04-04 | Outpatient (CLI) | payer MEDICARE, SELFPAY ==
[2022-10-17 10:25] VITALS: BMI 27.1
--- OUTSIDE RECORDS SUMMARY | 2023-04-04 11:08 | XMS RPT_ITS | CCD ---
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 LAD with 90% stenosis, LCx with prox 80% stenosis, RCA with 30% stenosis. It was opted to transfer her to [facility] for high risk PCI. Past Medical History She has a past medical history of DJD (degenerative joint disease) and Hypertension. Surgical History She has a past surgical history that includes Cardiac catheterization; Hysterectomy; and Appendectomy. Social History She reports that she quit smoking about 2 months ago. Her smoking use included cigarettes. She does not have any smokeless tobacco history on file. No history on file for alcohol use and drug use. Allergies Acetaminophen and Oxycodone Medications Medications Prior to Admission Medication Sig Dispense Refill Last Dose Cetirizine HCl (ZyrTEC ALLERGY) 10 MG capsule Take by mouth. famotidine (Pepcid) 20 MG tablet Take by mouth. lisinopril 5 MG tablet Take 5 mg by mouth in the morning and 5 mg in the evening. traMADol (Ultram) 50 MG tablet Take by mouth. Review of Systems Constitutional: Negative for activity change, chills, diaphoresis, fatigue and fever. HENT: Negative for nosebleeds and trouble swallowing. Eyes: Negative for discharge and visual disturbance. Respiratory: Negative for apnea, cough, chest tightness, shortness of breath and wheezing. Cardiovascular: Positive for chest pain. Negative for palpitations and leg swelling. Gastrointestinal: Negative for abdominal distention, abdominal pain, blood in stool, diarrhea, nausea and vomiting. Endocrine: Negative for cold intolerance and heat intolerance. Genitourinary: Negative for hematuria. Musculoskeletal: Negative for gait problem and myalgias. Skin: Negative for color change and rash. Neurological: Negative for dizziness, seizures, syncope, facial asymmetry, speech difficulty, weakness, light-headedness, numbness and headaches. Hematological: Does not bruise/bleed easily. Psychiatric/Behavioral: Negative for dysphoric mood. Physical Exam Vitals reviewed. Constitutional: General: She is not in acute distress. Appearance: Normal appearance. She is not diaphoretic. HENT: Head: Normocephalic. Mouth/Throat: Pharynx: No oropharyngeal exudate. Eyes: General: Right eye: No discharge. Left eye: No discharge. Extraocular Movements: Extraocular movements intact. Cardiovascular: Rate and Rhythm: Normal rate and regular rhythm. Pulses: Normal pulses. Heart sounds: Normal heart sounds. No murmur heard. No gallop. Pulmonary: Effort: Pulmonary effort is normal. No respiratory distress. Breath sounds: Normal breath sounds. Abdominal: General: Bowel sounds are normal. There is no distension. Palpations: Abdomen is soft. Tenderness: There is no abdominal tenderness. Musculoskeletal: General: Normal range of motion. Cervical back: Normal range of motion and neck supple. Right lower leg: No edema. Left lower leg: No edema. Skin: General: Skin is warm and dry. Capillary Refill: Capillary refill takes less than 2 seconds. Neurological: General: No focal deficit present. Mental Status: She is alert and oriented to person, place, and time. Cranial Nerves: No cranial nerve deficit. Psychiatric: Mood and Affect: Mood normal. Last Recorded Vitals There were no vitals taken for this visit. BP 155/86, P 71, R 16, T 97.9 Relevant Results See [employer] results. See Labs and EKGs from [place]. Assessment/Plan Principal Problem: NSTEMI (non-ST elevated myocardial infarction) ([facility]/HCC) (FORMERLY [facility]) Active Problems: Coronary artery disease involving crow coronary artery of crow heart with unstable angina pectoris ([facility]) Tobacco abuse Mixed hyperlipidemia Essential hypertension Unstable angina pectoris ([facility]ER[facility]) ([facility]) Assessment and Plan: NSTEMI/ Unstable angina/ CAD Admit to [address] [place] [id number], telemetry. Patient transferred from [place] for high risk PCI of tortuous prox LAD and tortuous LCx. Loaded with Aspirin and brilinta. Start beta wilner and high intensity statin. HTN Increase lisinopril and add beta wilner. HLD Start high intensity statin crestor 40 mg daily Tobacco use- former Ongoing Cessation. Discussed with Dr. Starr York, INSTRUCTOR BUSINESS EDUCATION - POWDER LOADER Associated attestation - Breana Clements MD - 07/07/2022 6:50 AM EDT I, Dr. Breana Clements, saw and evaluated the patient on 07/07/2022. I personally obtained the jeff and critical portions of the history and physical exam. I reviewed the labs, imaging studies, and electronic medical record. I reviewed the DIRECTOR OF DATABASE MARKETING's documentation, and discussed the patient with the DIRECTOR OF DATABASE MARKETING. I agree with the DIRECTOR OF DATABASE MARKETING's medical decision making and have edited the note to reflect my clinical findings and my assessment and plan. 67-year-old female smoker with hyperlipidemia and hypertension who presented to [facility] with stuttering substernal chest pressure with exertion over a several week duration. She was noted to have mildly elevated high-sensitivity troponin consistent with small non-STEMI. Diagnostic cardiac cath performed by Dr. Velazquez showing severe two-vessel coronary disease with diffuse stenosis of tortuous proximal to mid circumflex and tortuous proximal to mid LAD. Mild disease of the RCA. Given complexity of potential PCI, she was transferred to [facility]. She was loaded with aspirin and Brinlinta prior to transfer. She has no prior history of myocardial infarction, cardiomyopathy, or heart failure. On arrival, patient pain-free and in no distress. Lungs clear. Heart regular without murmur. Abdomen soft and benign. No peripheral edema. Right radial cath site warm and dry with good distal pulse and no hematoma. Labs from [place] reviewed with normal blood counts and kidney function. 80cc IV dye with diagnostic cath. Impression/Recommendations: NSTEMI/multivessel CAD--severe stenoses of proximal to mid LAD and proximal to mid circumflex, both highly tortuous vessels within stenotic areas. Appropriate for PCI of both vessels, but increased complexity due to stenosis length and tortuosity. Patient premedicated with aspirin and Brilinta. Currently pain-free. Two-vessel PCI advised. Risk, benefits, alternatives discussed with patient who agrees to proceed. Post PCI, plan long-term DAPT with aspirin and Brilinta, high intensity statin therapy, beta-wilner. Smoking cessation. Plan outpatient follow-up in [place] with Dr. Velazquez Tobacco abuse--complete cessation advised Dyslipidemia--initiation of high intensity statin therapy Essential hypertension, on lisinopril 5 mg twice daily. Blood pressure mildly elevated. Recommend increasing to 10 mg twice daily. Breana Clements MD [facility] 07-06-2022 History and physical note History Of Present Illness Dayana Huntley is a 67 y.o. female who was transferred from [facility] for PCI with Dr. Clements. She has a past medical history of HTN. She also recently quit smoking 2 months ago. There is heart disease in her family. She originally presented to [facility] with Chest pain. Her Chest pain started 6 months ago and worsened. Her pain was occurring on a daily basis. Her pain, described as tightness, became worse and is located on the left side of her chest and would worsen with moving her left arm. The pain improves with rest. She had some nausea and diaphoresis. Denies dyspnea. EKG abnormal. She was taken to the trestle mainternance laborer by Dr. Velazquez and this showed LAD with 90% stenosis, LCx with prox 80% stenosis, RCA with 30% stenosis. It was opted to transfer her to [facility] for high risk PCI. Past Medical History She has a past medical history of DJD (degenerative joint disease) and Hypertension. Surgical History She has a past surgical history that includes Cardiac catheterization; Hysterectomy; and Appendectomy. Social History She reports that she quit smoking about 2 months ago. Her smoking use included cigarettes. She does not have any smokeless tobacco history on file. No history on file for alcohol use and drug use. Allergies Acetaminophen and Oxycodone Medications Medications Prior to Admission Medication Sig Dispense Refill Last Dose Cetirizine HCl (ZyrTEC ALLERGY) 10 MG capsule Take by mouth. famotidine (Pepcid) 20 MG tablet Take by mouth. lisinopril 5 MG tablet Take 5 mg by mouth in the morning and 5 mg in the evening. traMADol (Ultram) 50 MG tablet Take by mouth. Review of Systems Constitutional: Negative for activity change, chills, diaphoresis, fatigue and fever. HENT: Negative for nosebleeds and trouble swallowing. Eyes: Negative for discharge and visual disturbance. Respiratory: Negative for apnea, cough, chest tightness, shortness of breath and wheezing. Cardiovascular: Positive for chest pain. Negative for palpitations and leg swelling. Gastrointestinal: Negative for abdominal distention, abdominal pain, blood in stool, diarrhea, nausea and vomiting. Endocrine: Negative for cold intolerance and heat intolerance. Genitourinary: Negative for hematuria. Musculoskeletal: Negative for gait problem and myalgias. Skin: Negative for color change and rash. Neurological: Negative for dizziness, seizures, syncope, facial asymmetry, speech difficulty, weakness, light-headedness, numbness and headaches. Hematological: Does not bruise/bleed easily. Psychiatric/Behavioral: Negative for dysphoric mood. Physical Exam Vitals reviewed. Constitutional: General: She is not in acute distress. Appearance: Normal appearance. She is not diaphoretic. HENT: Head: Normocephalic. Mouth/Throat: Pharynx: No oropharyngeal exudate. Eyes: General: Right eye: No discharge. Left eye: No discharge. Extraocular Movements: Extraocular movements intact. Cardiovascular: Rate and Rhythm: Normal rate and regular rhythm. Pulses: Normal pulses. Heart sounds: Normal heart sounds. No murmur heard. No gallop. Pulmonary: Effort: Pulmonary effort is normal. No respiratory distress. Breath sounds: Normal breath sounds. Abdominal: General: Bowel sounds are normal. There is no distension. Palpations: Abdomen is soft. Tenderness: There is no abdominal tenderness. Musculoskeletal: General: Normal range of motion. Cervical back: Normal range of motion and neck supple. Right lower leg: No edema. Left lower leg: No edema. Skin: General: Skin is warm and dry. Capillary Refill: Capillary refill takes less than 2 seconds. Neurological: General: No focal deficit present. Mental Status: She is alert and oriented to person, place, and time. Cranial Nerves: No cranial nerve deficit. Psychiatric: Mood and Affect: Mood normal. Last Recorded Vitals There were no vitals taken for this visit. BP 155/86, P 71, R 16, T 97.9 Relevant Results See Estate Planning Paralegal results. See Labs and EKGs from [place]. Assessment/Plan Principal Problem: NSTEMI (non-ST elevated myocardial infarction) (CMS/HCC) ([facility]) Active Problems: Coronary artery disease involving crow coronary artery of crow heart with unstable angina pectoris ([facility]) Tobacco abuse Mixed hyperlipidemia Essential hypertension Unstable angina pectoris (CMS/HCC) ([facility]) Assessment and Plan: NSTEMI/ Unstable angina/ CAD Admit to [address] [place] [address], telemetry. Patient transferred from [place] for high risk PCI of tortuous prox LAD and tortuous LCx. Loaded with Aspirin and brilinta. Start beta wilner and high intensity statin. HTN Increase lisinopril and add beta wilner. HLD Start high intensity statin crestor 40 mg daily Tobacco use- former Ongoing Cessation. Discussed with Dr. Starr York, INSTRUCTOR BUSINESS EDUCATION - POWDER LOADER Associated attestation - Breana Clements MD - 07/07/2022 6:50 AM EDT I, Dr. Breana Clements, saw and evaluated the patient on 07/07/2022. I personally obtained the jeff and critical portions of the history and physical exam. I reviewed the labs, imaging studies, and electronic medical record. I reviewed the DIRECTOR OF DATABASE MARKETING's documentation, and discussed the patient with the DIRECTOR OF DATABASE MARKETING. I agree with the DIRECTOR OF DATABASE MARKETING's medical decision making and have edited the note to reflect my clinical findings and my assessment and plan. 67-year-old female smoker with hyperlipidemia and hypertension who presented to [facility] with stuttering substernal chest pressure with exertion over a several week duration. She was noted to have mildly elevated high-sensitivity troponin consistent with small non-STEMI. Diagnostic cardiac cath performed by Dr. Velazquez showing severe two-vessel coronary disease with diffuse stenosis of tortuous proximal to mid circumflex and tortuous proximal to mid LAD. Mild disease of the RCA. Given complexity of potential PCI, she was transferred to [facility]. She was loaded with aspirin and Brinlinta prior to transfer. She has no prior history of myocardial infarction, cardiomyopathy, or heart failure. On arrival, patient pain-free and in no distress. Lungs clear. Heart regular without murmur. Abdomen soft and benign. No peripheral edema. Right radial cath site warm and dry with good distal pulse and no hematoma. Labs from [place] reviewed with normal blood counts and kidney function. 80cc IV dye with diagnostic cath. Impression/Recommendations: NSTEMI/multivessel CAD--severe stenoses of proximal to mid LAD and proximal to mid circumflex, both highly tortuous vessels within stenotic areas. Appropriate for PCI of both vessels, but increased complexity due to stenosis length and tortuosity. Patient premedicated with aspirin and Brilinta. Currently pain-free. Two-vessel PCI advised. Risk, benefits, alternatives discussed with patient who agrees to proceed. Post PCI, plan long-term DAPT with aspirin and Brilinta, high intensity statin therapy, beta-wilner. Smoking cessation. Plan outpatient follow-up in [place] with Dr. Velazquez Tobacco abuse--complete cessation advised Dyslipidemia--initiation of high intensity statin therapy Essential hypertension, on lisinopril 5 mg twice daily. Blood pressure mildly elevated. Recommend increasing to 10 mg twice daily. Breana Clements MD documented in this encounter [facility] 07-06-2022 Note Formatting of this n ote might be different from the original. Sedation Plan ASA class 2 - patient with mild systemic disease Mallampati class: III - soft palate, base of uvula visible. Sedation plan: local anesthesia and moderate (conscious sedation) Risks, benefits, and alternatives discussed with patient. Plan discussed with attending. Immediate reassessment prior to sedation: Patient's status reviewed and vital signs assessed; acceptable to perform procedure and proceed to administer sedation as planned. [employer] Phone: 07-06-2022 Note Formatting of this n ote might be different from the original. Sedation Plan ASA class 2 - patient with mild systemic disease Mallampati class: III - soft palate, base of uvula visible. Sedation plan: local anesthesia and moderate (conscious sedation) Risks, benefits, and alternatives discussed with patient. Plan discussed with attending. Immediate reassessment prior to sedation: Patient's status reviewed and vital signs assessed; acceptable to perform procedure and proceed to administer sedation as planned. [employer] Phone: documented in this encounter Expect LabsReason for referral (narrative)* Consultation (Routine) - Pending Review Specialty Diagnoses / Procedures Referred By Contact Referred To Contact Cardiac Rehabilitation / Cardiology Diagnoses Stented coronary artery Procedures [place] OFFICE/OUTPATIENT [facility] 60-74 MINUTES Liz York, INSTRUCTOR BUSINESS EDUCATION - POWDER LOADER [address] [facility] [address] [place] [address] [facility] [address] [place] [address] Referral ID Status Reason Start Date Expiration Date Visits Requested Visits Authorized [id number] Pending Review Specialty Services Required 07/06/2022 07/06/2023 1 1 [facility] Summary Purpose Family History Brother (s) Status:Active Comments:2. 1 di ed PEs after MVA; 1 estranged brother ? CAD Daughter (s) Status:Active Comments:1. A tw in to one of the sons Father Status:Active Comments: d. d. age 71; DC age 59; Mother Status:Active Comments: d. d. 84 yo. CABG x3 in 60s, and stents; osteoarthritis; diverticulosis Sister (s) Status:Active Comments:6. 1 d breast cancer age 60; 1 HTN Son (s) Status:Active Comments:2. 1 so n is twin to the daughter; Brother (s) Status:Active Comments:2. 1 di ed PEs after MVA; 1 estranged brother ? CAD Daughter (s) Status:Active Comments:1. A tw in to one of the sons Father Status:Active Comments: d. d. age 71; DC age 59; Mother Status:Active Comments: d. d. 84 yo. CABG x3 in 60s, and stents; osteoarthritis; diverticulosis Sister (s) Status:Active Comments:6. 1 d breast cancer age 60; 1 HTN Son (s) Status:Active Comments:2. 1 so n is twin to the daughter; Brother (s) Status:Active Comments:2. 1 di ed PEs after MVA; 1 estranged brother ? CAD Daughter (s) Status:Active Comments:1. A tw in to one of the sons Father Status:Active Comments: d. d. age 71; DC age 59; Mother Status:Active Comments: d. d. 84 yo. CABG x3 in 60s, and stents; osteoarthritis; diverticulosis Sister (s) Status:Active Comments:6. 1 d breast cancer age 60; 1 HTN Son (s) Status:Active Comments:2. 1 so n is twin to the daughter; Brother (s) Status:Active Comments:2. 1 di ed PEs after MVA; 1 estranged brother ? CAD Daughter (s) Status:Active Comments:1. A tw in to one of the sons Father Status:Active Comments: d. d. age 71; DC age 59; Mother Status:Active Comments: d. d. 84 yo. CABG x3 in 60s, and stents; osteoarthritis; diverticulosis Sister (s) Status:Active Comments:6. 1 d breast cancer age 60; 1 HTN Son (s) Status:Active Comments:2. 1 so n is twin to the daughter; Brother (s) Status:Active Comments:2. 1 di ed PEs after MVA; 1 estranged brother ? CAD Daughter (s) Status:Active Comments:1. A tw in to one of the sons Father Status:Active Comments: d. d. age 71; DC age 59; Mother Status:Active Comments: d. d. 84 yo. CABG x3 in 60s, and stents; osteoarthritis; diverticulosis Sister (s) Status:Active Comments:6. 1 d breast cancer age 60; 1 HTN Son (s) Status:Active Comments:2. 1 so n is twin to the daughter; Advance Directives No Advanced Directives Records FoundNo Advanced Directives Records FoundNo Advanced Directives Records Found Additional Source Comments INFORMATION SOURCE (unrecogn ized section and content) DATE CREATED AUTHOR AUTHOR'S ORGANIZ ATION 07/07/2022 [facility] DATE CREATED AUTHOR AUTHOR'S ORGANIZ ATION 12/04/2022 [facility] Reason for Visit (unrecogniz ed section and content) Referral ID Status Reason Start Date Expiration Date Visits Re quested Visits Authorized [id number] 1 1 Reason Onset Date Comments post AMI discharge phone call 07/10/2022 Scheduled Active and Recently Administ ered Medications (unrecognized section and content) Continuous Medication Order 07/05/2022 07/06/2022 07/07/2022 sodium chloride 0.9 % infusion () 125 mL/hr, IntraVENous, Continuous, Starting on Sat07/06/22 at 1645, For 6 hours 1759 (New Bag - Provider: Francisco Oliver, EDVIN)2300 (Stopped - Provider: Lily Gibbs RN) PRN Medication Order 07/05/2022 07/06/2022 07/07/2022 fentaNYL (Sublimaze) injection (CANCELED) IntraVENous, As needed, Starting on Sat07/06/22 at 1522, Intraprocedure 1522 (Given - Provider: Agata Botello RN)1602 (Given - Provider: Agata Botello, RN) heparin injection (CANCELED) IntraVENous, As needed, Starting on Sat07/06/22 at 1530, Intraprocedure 1530 (Given - Provider: Agata Botello, RN)1610 (Given - Provider: Agata Botello, RN) iopamidol (Isovue-300) 61 % injection (CANCELED) As needed, Starting on Sat07/06/22 at 1640, Intraprocedure 1640 (Given - Provider: Hal Gibbons MD) labetalol (Normodyne,Trandate) injection 10 mg 10 mg, IntraVENous, Every 6 hours PRN, high blood pressure, SBP > 160, Hold for HR < 60, Starting on Sat07/06/22 at 1731 lidocaine (Xylocaine) 1 % injection (CANCELED) As needed, Starting on Sat07/06/22 at 1525, Intraprocedure 1525 (Given - Provider: Hal Gibbons MD) midazolam (Versed) injection (CANCELED) IntraVENous, As needed, Starting on Sat07/06/22 at 1522, Intraprocedure 1522 (Given - Provider: Agata Botello, EDVIN) nitroglycerin (Nitrostat) SL tablet 0.4 mg 0.4 mg, SubLINGual, Every 5 min PRN, chest pain, Starting on Sat07/06/22 at 1732, May administer up to 3 doses per episode. sodium chloride 0.9 % infusion (COMPLETED) IntraVENous, Continuous PRN, Starting on Sat07/06/22 at 1616, Intraprocedure 1616 (New Bag - Provider: Agata Botello, RN - Comment: peripheral IV) sodium chloride 0.9 % infusion 5-250 mL/hr, IntraVENous, PRN, if patient receiving piggyback infusions and maintenance fluids are not ordered OR KVO fluids to protect IV site / prevent frequent line interruptions / long duration, Starting on Sat07/06/22 at 1643, Recovery & On Unit, For piggyback infusion, administer at same rate as piggyback for a total of 25 mL. Enter 25 mL into dose field and piggyback rate into rate field of order. If piggyback is infusing at a rate less than 100 mL/hr, enter 25 mL into dose field and 100 mL/hr into rate field of order. For KVO fluids, enter rate of 20 mL/hr or less into rate field of order. sodium chloride 0.9% (NS) flush 5-40 mL 5-40 mL, IntraVENous, PRN, line care, After every IV line use, Starting on Sat07/06/22 at 1643, Recovery & On Unit, For Line Patency: Peripheral IV = 5 mL; Midline or Central Line = 10 mL/lumen. If following IV push medication, administer flush at same rate as the IV push. Flush volume is determined by type of infusion therapy being given. For non-viscous solutions use: Peripheral IV = 5 mL Midline or Central Line = 10 mL/lumen For viscous solutions (i.e. blood components, parenteral nutrition, contrast media, or after obtaining blood sample) use: Peripheral IV = 10 mL Midline or Central Line = 20 mL/lumen Care Teams (unrecognized sec tion and content) Cake [employer] Relationship Specialty Start Date End Date [facility] [address] [place] [id number] PCP - General 07/06/22 FOR RECORDS PERTAINING TO PATIENTS WHO ARE OR HAVE BEEN ENROLLED IN A CHEMICAL DEPENDENCY/SUBSTANCEABUSE PROGRAM, SOME INFORMATION MAY BE OMITTED. This clinical summary was aggregated from multiple sources. Caution should be exercised in using it in the provision of clinical care. This summary normalizes information from multiple sources, and as a consequence, information in this document may materially change the coding, format and clinical context of patient data. In addition, data may be omitted in some cases. CLINICAL DECISIONS SHOULD BE BASED ON THE PRIMARY CLINICAL RECORDS. [facility] [employer] [facility]. provides no warranty or guarantee of the accuracy or completeness of information in this document.
[2023-04-04 11:35] LABS: AST(SGOT) 20 U/L (15-37); Alanine Aminotransfer ALT/SGPT 24 U/L (13-56); Albumin, Serum 3.4 g/dL (3.2-5.0); Alkaline Phosphatase 98 U/L (45-117); Bilirubin, Direct 0.14 mg/dL (0.00-0.30); Cholesterol 140 mg/dL (200); Globulin 3.5 g/dL (2.2-4.2); High Density Lipoprotein 36 mg/dL; Protein, Total 6.9 g/dL (6.4-8.2); Triglycerides 147 mg/dL; Very Low Density Lipoprotein 29 mg/dL (5-40)
== END | disposition home or self-care (01) ==
PROVIDERS: PCP Family Medicine; Referring Provider Physician Assistant Medical; Visit Provider Physician Assistant Medical
DX: I25.10 Atherosclerotic heart disease of native coronary artery without angina pectoris (principal); E78.5 Hyperlipidemia, unspecified
CPT/HCPCS: 36415; 80061; 80076

== ENCOUNTER → 2023-10-11 | Outpatient (CLI) | payer MEDICARE, SELFPAY ==
[2022-10-17 10:25] VITALS: BMI 27.1
[2023-10-11 13:02] LABS: AST(SGOT) 18 U/L (15-37); Alanine Aminotransfer ALT/SGPT 15 U/L (13-56); Albumin, Serum 3.3 g/dL (3.2-5.0); Alkaline Phosphatase 103 U/L (45-117); Cholesterol 165 mg/dL (200); Globulin 3.9 g/dL (2.2-4.2); High Density Lipoprotein 39 mg/dL; Protein, Total 7.2 g/dL (6.4-8.2); Triglycerides 162 mg/dL; Very Low Density Lipoprotein 32 mg/dL (5-40)
== END | disposition home or self-care (01) ==
LOC: LAB 11:43
PROVIDERS: PCP Family Medicine; Referring Provider Physician Assistant Medical; Visit Provider Physician Assistant Medical
DX: E78.5 Hyperlipidemia, unspecified (principal)
CPT/HCPCS: 36415; 80061; 80076

== ENCOUNTER → 2024-03-18 | Outpatient (CLI) | payer MEDICARE, SELFPAY ==
[2022-10-17 10:25] VITALS: BMI 27.1
[2024-03-18 12:12] LABS: AST(SGOT) 12 U/L (15-37); Alanine Aminotransfer ALT/SGPT 19 U/L (13-56); Albumin, Serum 3.3 g/dL (3.2-5.0); Alkaline Phosphatase 97 U/L (45-117); Bilirubin, Direct 0.12 mg/dL (0.00-0.30); Cholesterol 150 mg/dL (200); Globulin 3.6 g/dL (2.2-4.2); High Density Lipoprotein 40 mg/dL; Protein, Total 6.9 g/dL (6.4-8.2); Triglycerides 136 mg/dL; Very Low Density Lipoprotein 27 mg/dL (5-40)
== END | disposition home or self-care (01) ==
LOC: LAB 10:31
PROVIDERS: PCP Family Medicine; Referring Provider Physician Assistant Medical; Visit Provider Physician Assistant Medical
DX: E78.00 Pure hypercholesterolemia, unspecified (principal)
CPT/HCPCS: 36415; 80061; 80076

== ENCOUNTER → 2024-07-27 | Outpatient (CLI) | payer MEDICARE, SELFPAY ==
[2022-10-17 10:25] VITALS: BMI 27.1
--- OUTSIDE RECORDS SUMMARY | 2024-07-27 06:16 | XMS RPT_ITS | CCD ---
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 [facility]. Work Phone: 150 mg/dL Normal [facility].; [facility]. Work Phone: 136 mg/dL Normal [facility].; [facility]. Work Phone: 40 mg/dL Normal [facility].; [facility]. Work Phone: 83 mg/dL Normal 0 - 130 mg/dL [facility].; [facility]. Work Phone: 27 mg/dL Normal 5 - 40 mg/dL [facility].; [facility]. Work Phone: Serum globulin measurementOr dered By: Marilin Hutchinson on 03-18-2024 Globulin (S) [Mass/Vol] 3.6 g/dL 2.2-4.2 [facility] Serum or plasma alanine mancera otransferase (ALT) measurementOrdered By: Marilin Hutchinson on 03-18-2024 ALT [Catalytic activity/Vol] 19 U/L [facility] Serum or plasma albumin paras urement (mass/volume)Ordered By: Marilin Hutchinson on 03-18-2024 Albumin [Mass/Vol] 3.3 g/dL 3.2-5.0 [facility] Serum or plasma alkaline coleman sphatase measurementOrdered By: Marilin Hutchinson on 03-18-2024 ALP [Catalytic activity/Vol] 97 U/L 45-117 [facility] Serum or plasma cholesterol measurement (mass/volume)Ordered By: Marilin Hutchinson on 03-18-2024 Cholesterol [Mass/Vol] 150 mg/dL <200 [facility] Comment on above: <200 mg/dL Desirable 200-240 mg/dL Borderline >240 mg/dL High Risk Total proteinOrdered By: Miguelangel Hutchinson on 03-18-2024 Protein [Mass/Vol] 6.9 g/dL 6.4-8.2 [facility] Triglycerides measurementOrd ered By: Marilin Hutchinson on 03-18-2024 Triglyceride [Mass/Vol] 136 mg/dL <199 [facility] Comment on above: The drugs N-Acetylcy steine and Metamizole may falsely depress this assay.Serum Triglycerides Reference Interval Normal <150 mg/dL Borderline high 150 - 199 mg/dL High 200 - 499 mg/dL Very High > or = 500 mg/dL Very low density lipoprotein (VLDL) cholesterol measurementOrdered By: Marilin Hutchinson on 03-18-2024 Very low density lipoprotein (VLDL) cholesterol measurement 27 mg/dL 5-40 [facility] No Panel InformationOrdered By: Marian Ramírez on 03-12-2024 [facility] Center[facility].; [facility], [facility]. No Panel InformationOrdered By: Marian Ramírez on 03-11-2024 [facility] Center[facility].; [facility], [facility]. No Panel InformationOrdered By: Marian Ramírez on 03-09-2024 [facility] Center[facility].; [facility], [facility]. [facility] Center[facility].; [facility], [facility]. [facility] Center[facility].; [facility], [employer]. Laboratory - Chemistry and C hemistry - challengeon 03-05-2024 Bilirubin Ql (U) Negative Normal [facility].; [facility] - [facility], Inc. Ketones Ql (U) Negative Normal [facility].; [facility], [facility]. pH (U) 6.0 [pH] Normal [facility].; [facility], [facility]. Specific gravity (U) [Rel density] 1.010 Normal [facility].; [facility], [facility]. Laboratory - Hematology and Cell countson 03-05-2024 Hemoglobin Ql (U) + Abnormal [facility].; [facility], [facility]. Laboratory - Microbiology an d Antimicrobial susceptibilityon 03-05-2024 Bacteria identified Cx Nom (U) Preliminary report Abnormal [facility].; [facility]. Bacteria identified Cx Nom (U) Escherichia coli Abnormal [facility].; [facility], [facility]. Bacteria identified Cx Nom (U) Final report Abnormal [facility].; [facility], [facility]. Other Antibiotic [Susc] Comment Normal [facility].; [facility], [facility]. Laboratory - Specimen inform ationon 03-05-2024 Appearance (U) CLOUDY Abnormal [facility].; [facility], [facility]. Color (U) YELLOW Normal [facility].; [facility], [facility]. Laboratory - Urinalysison Glucose Test strip (U) [Mass/Vol] Negative Normal [facility].; [facility], Inc[facility] Leukocyte esterase Test strip Ql (U) 3+ Abnormal [facility].; [facility], Inc[facility] Nitrite Ql (U) + Abnormal [facility], [facility].; [facility], Inc[facility] Protein Ql (U) Negative Normal [facility], [facility].; [facility], Inc. No Panel InformationOrdered By: Marian Ramírez on 03-05-2024 [facility], [facility].; [facility], Inc. [facility].; [facility], Inc. No Panel Informationon 03-05 UA - ODOR Positive Abnormal [facility].; [facility] - [facility], Inc[facility] UA - UROBILIGEN 3.5 Normal [facility].; [facility] - [facility], Inc[facility] 3.5 Normal [facility] Center[facility] Inc.; [facility] - [facility], Inc[facility] Positive Abnormal [facility].; [facility] - [facility], Inc. No Panel InformationOrdered By: Marian Ramírez on 02-24-2024 [facility] HospitalKrave-N [facility].; [facility], Inc. [facility] HospitalKrave-N [facility]Trigger [facility] Industries Inc.; [facility], Fund Rec[employer]. [facility] [employer] [facility].; [facility] [employer] [facility], Inc. AORTAon 02-24-2024 AORTA [place] [address] Patient: DAYANA HUNTLEY Phone#: : 1955 Age: 68 Gender: F Pt. Type: Out Account: [id number] Location: [facility] Ordering: YOUSIF MORGAN Exam Date: 02/24/2024/7:42 Family Phys: Charge Code: [id number] Physician: [place] Order #: [id number] Dose#: PROCEDURE: AORTA ULTRASOUND COMPARISON: [facility], AORTA, 12/03/2022, 10:22. INDICATIONS: Abdominal aortic aneurysm. TECHNIQUE: Ultrasound was performed of the abdominal aorta. FINDINGS: AORTA: There is aneurysmal dilatation of the distal aorta measuring 3.8 x 3.9 centimeters. Dilatation is 4.6 centimeters in length. The proximal and mid abdominal aorta are normal in caliber. There is a segment of aorta distal to the aneurysm that is normal in caliber. OTHER: Negative. CONCLUSION: 1. Aneurysmal dilatation of the distal abdominal aorta with maximum diameter of 3.9 centimeters. Dictated by: Enedina Ha MD on 02/24/2024 at 11:08 Approved by: Enedina Ha MD on 02/24/2024 at 11:15 Normal [facility] No Panel InformationOrdered By: Marian Ramírez on 02-20-2024 [facility] Center[facility].; [facility] HospitalTrigger F[facility] Industries [facility].; [facility] HospitalTrigger [facility] Industries [facility], Inc. Lipid Profileon 10-11-2023 Cholesterol [Mass/Vol] 165 mg/dL Normal 200 [facility].; [facility], Inc. Work Phone: Comment on above: Result Comment: <200 mg/dL Desirable 200-240 mg/dL Borderline >240 mg/dL High Risk Performed By: #### L 500.3400, L500.4100 #### [facility] [address] [place], [place], [id number] (193) Cholesterol in HDL [Mass/Vol] 39 mg/dL Low [facility] Center[facility].; [facility] Work Phone: Comment on above: Result Comment: The drugs N-Acetylcysteine and Metamizole may falsely depress this assay. Reference Range HDL <40 mg/dL Low HDL Cholesterol HDL >or= 60 mg/dL High HDL Cholesterol Performed By: #### L 500.3400, L500.4100 #### [facility] [address] [place], [address] Cholesterol in LDL [Mass/Vol] 94 mg/dL Normal 0-130 [facility] CenterR[facility].; [facility], Inc[facility] Work Phone: Comment on above: Performed By: #### L 500.3400, L500.4100 #### [facility] [address] [place], [address] Cholesterol in VLDL [Mass/Vol] 32 mg/dL Normal 5-40 [facility]; [facility] Work Phone: Comment on above: Performed By: #### L 500.3400, L500.4100 #### [facility] [address] [place], [place], [id number] Triglyceride [Mass/Vol] 162 mg/dL Normal [facility]; [facility] Work Phone: Comment on above: Result Comment: The drugs N-Acetylcysteine and Metamizole may falsely depress this assay. Serum Triglycerides Reference Interval Normal <150 mg/dL Borderline high 150 - 199 mg/dL High 200 - 499 mg/dL Very High > or = 500 mg/dL Performed By: #### L 500.3400, L500.4100 #### [facility] [address] [place], [address] Liver Profileon 10-11-2023 Albumin [Mass/Vol] 3.3 g/dL Normal 3.2-5.0 [facility]; [facility] Work Phone: Comment on above: Performed By: #### L 500.3400, L500.4100 #### [facility] [address] [place], [place], [id number] ALK P 103 U/L Normal 45-117 [facility]; [facility] Work Phone: Comment on above: Performed By: #### L 500.3400, L500.4100 #### [facility] [address] [place], [place], [id number] ALT [Catalytic activity/Vol] 15 U/L Normal 13-56 [facility]; [facility] Work Phone: Comment on above: Performed By: #### L 500.3400, L500.4100 #### [facility] [address] [place], [place], [address] AST [Catalytic activity/Vol] 18 U/L Normal 15-37 [facility]; [facility] Work Phone: Comment on above: Performed By: #### L 500.3400, L500.4100 #### [facility] [address] [place], [address] Bilirubin [Mass/Vol] 0.50 mg/dL Normal 0.20-1.00 [facility]; [facility] Work Phone: Comment on above: Result Comment: For patients on eltrombopag therapy, use of Dimension Misenheimer TBIL is not recommended. Performed By: #### L 500.3400, L500.4100 #### [facility] [address] [place], [place], [address] [phone] Bilirubin.direct [Mass/Vol] 0.10 mg/dL Normal 0.00-0.30 [facility]; [facility] Work Phone: Comment on above: Performed By: #### L 500.3400, L500.4100 #### [facility] [address] [place], [address] Globulin (S) [Mass/Vol] 3.9 g/dL Normal 2.2-4.2 [facility]; [facility] Work Phone: Comment on above: Performed By: #### L 500.3400, L500.4100 #### [facility] [address] [place], [place], [id number] T PROT 7.2 g/dL Normal 6.4-8.2 [facility] [employer] [facility], Inc.; [facility]PRESBYTER[facility] HOSPITALFanKave [facility] [employer] [facility], Inc. Work Phone: Comment on above: Performed By: #### L 500.3400, L500.4100 #### [facility] [address] [place], [address] No Panel Informationon 10-10 7.2 g/dL Normal 6.4 - 8.2 g/dL [facility], Inc[facility] Work Phone: 3.3 g/dL Normal 3.2 - 5.0 g/dL [facility], [facility] [employer] [facility], Inc. Work Phone: 3.9 g/dL Normal 2.2 - 4.2 g/dL [facility], [facility] [employer] [facility], Inc. Work Phone: 18 U/L Normal 15 - 37 U/L [facility] CenterTrigger F[facility] Industries Inc.; [facility]PRESBYTERIAN HOSPITALFanKave [employer] [employer] [facility] [employer] [facility], Inc. Work Phone: 103 U/L Normal 45 - 117 U/L [facility] [employer] [facility], Inc.; [facility]PRESBYTERIAN HOSPITALFanKave [facility] - [facility] [employer] [facility], Inc. Work Phone: 15 U/L Normal 13 - 56 U/L [facility] [employer] [facility], Inc.; NEW[facility]-PRESBYTERIAN HOSPITALLoci ControlsEK - [facility] [employer] [facility], Inc. Work Phone: 0.50 mg/dL Normal 0.20 - 1.00 mg/dL [facility] [employer] [facility], Inc.; [employer] MaintenanceErl[facility] [employer] [facility], Inc. Work Phone: 0.10 mg/dL Normal 0.00 - 0.30 mg/dL [facility] [employer] [facility], Inc.; [employer] MaintenanceLakeview [facility] [employer] [facility], Inc. Work Phone: 165 mg/dL Normal [facility] CenterRift[facility]io.; [facility] HospitalR[facility]. Work Phone: 162 mg/dL Normal [facility] CenterR[facility].; [place] - [facility], Inc. Work Phone: 39 mg/dL Abnormal [facility] [employer] [facility].; [facility] [employer] [facility], Inc. Work Phone: 94 mg/dL Normal 0 - 130 mg/dL [facility] [employer] [facility].; [facility]PRESBYTER[facility] HOSPITALFanKave [facility] [employer] [facility] [place]. Work Phone: 32 mg/dL Normal 5 - 40 mg/dL [facility] [employer] [facility].; [facility]-PRESBYTER[facility] HOSPITALFanKave [facility] [employer] [facility]. Work Phone: No Panel InformationOrdered By: Marian Ramírez on 08-08-2023 [facility] [employer].; [facility] [employer] [facility]. [facility] [employer].; [facility] [facility]naRift.ioWvumedicine [facility] Ter[employer].; [facility] [employer] [facility], Fund Recs. Cardiology Visit Reporton Cardiology Visit Report [facility] [address] [place] [address]. [address] [place] [address] OFFICE VISIT Date of Service: 08/01/23 MR#: [id number] Acct: [id number] Name: DAYANA HUNTLEY Rep #: [id number] : 1955 Provider: EUGENE Cunha Age/Sex: 68/F Location: [facility] Status: Signed [facility] History of Present Illness Details: Dayana Dennis is a 68 year old female that presents here today for a cardiovascular follow up. Patient initially presented from an outside hospital emergency room with chest discomfort. She stated that she had chest discomfort that was in her shoulder blade and did radiate. She was working in her yard when she had this discomfort. She did go to the emergency room however she left before second troponin came back. Second troponin was elevated. When she returned back to the emergency room she requested that she be transferred here to [facility]. She did undergo a diagnostic heart catheterization which demonstrated left main normal, LAD had 90% mid stenosis followed by an another area of 80% stenosis, circumflex proximal 80% stenosis, RCA dominant with 30% stenosis, preserved systolic ejection fraction. She was transferred to [facility] due to the tortuosity of her calcified LAD and circumflex. She did undergo stenting of both vessels. From a cardiac standpoint, patient is doing well. She does not have any chest discomfort/heaviness /tightness. Her exercise tolerance is stable for her age. She does not have any worsening symptoms of shortness of breath. She does not have any orthopnea. She denies PND. She does not have any symptoms of congestive heart failure. She does not have any palpitations that she is aware of. She does not have any lightheadedness or dizziness. She does not have any near- syncope or syncope. She does not have any lower extremity edema. She does not have any symptoms of claudication. 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 Is patient in pain?: No Allergies acetaminophen (From Percocet) Allergy (Verified 08/01/23 08:59) Upset Stomach bee venom protein (honey bee) Allergy (Verified 08/01/23 08:59) Hives oxycodone (From Percocet) Allergy (Verified 08/01/23 08:59) Upset Stomach Medications ???Medication ???Instructions ???Recorded ???Confirmed ???Type cetirizine 10 mg tablet (Zyrtec) 10 mg PO DAILY 07/06/22 08/01/23 History aspirin 81 mg tablet,delayed 81 mg PO DAILY 07/17/22 08/01/23 History release (Adult Low Dose Aspirin) lisinopril 5 mg tablet 5 mg PO BID 07/17/22 08/01/23 History nitroglycerin 0.4 mg sublingual 0.4 mg sublingual Q5M PRN 07/17/22 08/01/23 History tablet carvedilol 6.25 mg tablet (Coreg) 6.25 mg PO BID #180 tabs 08/16/22 08/01/23 Rx pantoprazole 40 mg tablet,delayed 40 mg PO DAILY #90 tabs 07/18/23 08/01/23 Rx release pravastatin 40 mg tablet 40 mg PO DAILY #90 tabs 07/18/23 08/01/23 Rx PFSH Medical History CAD (coronary artery disease) DDD (degenerative disc disease) Hypertension Surgical History S/P angioplasty with stent History of heart artery stent Hx of appendectomy H/O: hysterectomy Family History Other Diabetes Heart disease Social History Smoking Status: Light Smoker (<10/day) ROS Const Const: Negative for fatigue, weakness, fever(s) or headache(s) Eyes Eyes: Negative for blind spots, loss of peripheral vision or transient loss of vision ENT ENT: Negative for headache(s), dizziness, tinnitus, Nosebleed/epistaxis or balance problems Cardio Chest Pain: No Palpitations: No Edema: None Muscle aches with walking: None Resp Respiratory: Negative for SOB with activity, SOB at rest, SOB orthopnea SOB lying down or Cough GI GI: Negative nausea, vomiting, heartburn or vomiting blood/hematemesis : Negative for hematuria Musc Musc: Negative for muscle aches/ myalgia, muscle weakness, joint pain or balance problems Neuro Neuro: Negative for dizziness, lightheadedness, near syncope, syncope, orthostatic symptoms, headache(s) or weakness Jono Hematologic/Lymphati c: Negative for easy bleeding Endo Endo: Negative for fatigue Cardiology Exam Const Appearance: cooperative, healthy appe (more content not included)... Normal [facility] No Panel InformationOrdered By: Marian Ramírez on 08-01-2023 [facility] CenterTrigger Finger Industries [facility].; [facility] HospitalTrigger Finger Industries [facility]; [facility] No Panel InformationOrdered By: Marian Ramírez on 05-22-2023 [facility].; [facility], [facility].; [facility] Basophil percentageOrdered B y: Marilin Hutchinson on 04-04-2023 Bilirubin [Mass/Vol] 0.60 mg/dL Normal 0.20 - 1.00 mg/dL [facility] Comment on above: For patients on eltr ombopag therapy, use of Dimension [place] TBIL is not recommended. Cholesterol [Mass/Vol] 140 mg/dL Normal [facility] Comment on above: <200 mg/dL Desirable 200-240 mg/dL Borderline >240 mg/dL High Risk Protein [Mass/Vol] 6.9 g/dL 6.4-8.2 [facility] Triglyceride [Mass/Vol] 147 mg/dL Normal [facility] Comment on above: The drugs N-Acetylcy steine and Metamizole may falsely depress this assay.Serum Triglycerides Reference Interval Normal <150 mg/dL Borderline high 150 - 199 mg/dL High 200 - 499 mg/dL Very High > or = 500 mg/dL Direct bilirubinOrdered By: Marilin Hutchinson on 04-04-2023 Bilirubin.direct [Mass/Vol] 0.14 mg/dL Normal 0.00 - 0.30 mg/dL [facility] Laboratory - Chemistry and C hemistry - challengeon 04-04-2023 Albumin [Mass/Vol] 3.4 g/dL Normal 3.2 - 5.0 g/dL [facility] Hospital[facility] Finger Industries [facility] Work Phone: AST [Catalytic activity/Vol] 20 U/L Normal 15 - 37 U/L [facility]; [facility] Work Phone: Cholesterol in VLDL [Mass/Vol] 29 mg/dL Normal 5 - 40 mg/dL [facility] HospitalKrave-N [facility] [email or web address].; [facility]PRESBYTER[facility] HOSPITALLoci ControlsEK [employer] [facility] [employer] [facility] [email or web address]. Work Phone: Laboratory - Chemistry and C hemistry - challengeOrdered By: Marilin Hutchinson on 04-04-2023 ALP [Catalytic activity/Vol] 98 U/L 45-117 [facility] ALT [Catalytic activity/Vol] 24 U/L Normal 13 - 56 U/L [facility] Cholesterol in HDL [Mass/Vol] 36 mg/dL Abnormal [facility] Comment on above: The drugs N-Acetylcy steine and Metamizole may falsely depress this assay. Reference Range HDL <40 mg/dL Low HDL Cholesterol HDL >or= 60 mg/dL High HDL Cholesterol Cholesterol in LDL [Mass/Vol] 75 mg/dL Normal 0 - 130 mg/dL [facility] Globulin (S) [Mass/Vol] 3.5 g/dL Normal 2.2 - 4.2 g/ dL [facility] No Panel Informationon 04-04 ALK P 98 U/L Normal 45 - 117 U/L [facility] [employer] [facility] [email or web address].; [facility]PRESBYTERIAN HOSPITALFanKave [employer] [facility] [employer] [facility] [email or web address] Work Phone: T PROT 6.9 g/dL Normal 6.4 - 8.2 g/dL [facility] [employer] [facility] [email or web address].; [employer] [facility] [employer] [facility] [email or web address] Work Phone: 6.9 g/dL Normal 6.4 - 8.2 g/dL [facility] NxThera [facility] [email or web address].; [facility] HOSPITALLoci [employer] [facility] [employer] [facility] [email or web address]. Work Phone: 3.4 g/dL Normal 3.2 - 5.0 g/dL [facility] HospitalLinden Lab [facility], [email or web address].; [facility] HOSPITALLoci [employer] [facility] [employer] [facility] [email or web address] Work Phone: 3.5 g/dL Normal 2.2 - 4.2 g/dL [facility] HospitalLinden Lab [facility] [email or web address].; [employer] [facility] [employer] [facility] [email or web address] Work Phone: 20 U/L Normal 15 - 37 U/L [facility].; [facility] Work Phone: 98 U/L Normal 45 - 117 U/L [facility].; [facility]. Work Phone: 24 U/L Normal 13 - 56 U/L [facility].; [facility], [facility]. Work Phone: 0.60 mg/dL Normal 0.20 - 1.00 mg/dL [facility].; [facility], [facility]. Work Phone: 0.14 mg/dL Normal 0.00 - 0.30 mg/dL [facility].; [facility] Work Phone: 140 mg/dL Normal [facility].; [facility] Work Phone: 147 mg/dL Normal [facility].; [facility], [facility]. Work Phone: 36 mg/dL Abnormal [facility].; [facility] Work Phone: 75 mg/dL Normal 0 - 130 mg/dL [facility].; [facility], [facility]. Work Phone: 29 mg/dL Normal 5 - 40 mg/dL [facility].; [facility], [facility]. Work Phone: No Panel InformationOrdered By: Marilin Hutchinson on 04-04-2023 VLDL Cholesterol 29 mg/dL 5-40 [facility] Thin prep Papanicolaou smear with manual screeningOrdered By: Marilin Hutchinson on 04-04-2023 Thin prep Papanicolaou smear with manual screening 3.4 g/dL 3.2-5.0 [facility] Thin prep Papanicolaou smear with manual screening 20 U/L 15-37 [facility] Comment on above: Slight Hemolysis, Re sult may be falsely increased. No Panel InformationOrdered By: Marian Ramírez on 03-29-2023 [facility] CenterRift.io.; [facility] HospitalRift.io. No Panel InformationOrdered By: Marian Ramírez on 03-28-2023 [facility] CenterRift.io.; [facility] HospitalRift.io. [facility] CenterRift.io.; [facility] HospitalRift.ioUnitypoint Health-Saint Luke'S HospitalRift.io.; [facility] HospitalRift.io. No Panel InformationOrdered By: Marian Ramírez on 02-13-2023 [facility] [employer] [facility] [email or web address].; [facility] HospitalRift.io. Basic metabolic 1998 panelon 07-07-2022 Anion gap [Moles/Vol] 5 mmol/L 3 - 13 mmol/L [facility] Calcium [Mass/Vol] 8.4 mg/dL 8.4 - 10. 4 mg/dL [facility] Chloride [Moles/Vol] 109 mmol/L High 98 - 10 7 mmol/L [facility] CO2 [Moles/Vol] 21 mmol/L Low 22 - 30 mmol/L [facility] Creatinine [Mass/Vol] 0.78 mg/dL 0.52 - 1.04 mg/dL [facility] GFR/1.73 sq M.predicted MDRD (S/P/Bld) [Vol rate/Area] 83.9 mL/min/{1.73_m2} - PINF [facility] Comment on above: Calculation based on the Chronic Kidney Disease Epidemiology Collaboration (CKD-EPI) equation refit without adjustment for race Glucose [Mass/Vol] 175 mg/dL High 70 - 100 mg/dL [facility] Potassium [Moles/Vol] 3.7 mmol/L 3.5 - 5.1 mmol/L [facility] Sodium [Moles/Vol] 136 mmol/L 135 - 145 mmol/L [facility] Urea nitrogen [Mass/Vol] 10 mg/dL 7 - 17 mg/dL [facility] CBC panel Auto (Bld)on 05-27 -2023 Erythrocyte distribution width (RBC) [Ratio] 13.5 % 11.5 - 14.5 % [facility] Hematocrit (Bld) [Volume fraction] 39.2 % 35.0 - 47.0 % [facility] Hemoglobin (Bld) [Mass/Vol] 13.2 g/dL 11.7 - 16.0 g/dL [facility] Interpretation and review of laboratory results Normal [facility] MCH (RBC) [Entitic mass] 31.8 pg 26.0 - 34.0 pg [facility] MCHC (RBC) [Mass/Vol] 33.7 % 32.0 - 36.0 % [facility] MCV (RBC) [Entitic vol] 94.4 fL 80.0 - 98.0 fL [facility] Platelet mean volume (Bld) [Entitic vol] 8.6 fL 7.4 - 12.4 fL [facility] Platelets (Bld) [#/Vol] 243 10*3/uL 140 - 440 10*3/uL [facility] RBC (Bld) [#/Vol] 4.16 10*6/uL 3.8 - 5.20 10*6/uL [facility] WBC (Bld) [#/Vol] 8.4 10*3/uL 3.6 - 10.7 10*3/uL [facility] Cardiac catheterization stud yon 07-07-2022 Impression: Normal left heart filling pressure with no significant aortic valve gradient noted. Significant 80-90% diffuse stenosis in proximal and mid LAD with severe tortuosity Significant 80% stenosis in proximal-mid Lcx with moderate tortuosity Successful IVUS guided PCI of proximal and mid LAD using three overlapping Xience JUAN (3.0 mm X 18 mm, 2.75 mm X 38 mm and 2.5 mm X 38 mm) Successful IVUS guided PCI of mid Lcx using two overlapping Xience JUAN (2.75 mm X 33 mm and 2.5 mm X 28 mm) Procedure Details Patient was prepped and draped in sterile fashion. Soft tissue overlying the right radial artery and was anesthetized with lidocaine injected subcutaneously. A 6 Afghan sheath was advanced into the right radial artery using modified Seldinger technique. Standard cocktail of nitroglycerin and verapamil was administered through the sheath. ACT was checked through the sheath and heparin given intravenously in boluses maintaining therapeutic ACT. The 6F EBU 3.5 catheter was advanced into the LV cavity and we measured the LV pressure followed by pullback. Left coronary angiogram was performed using a 6F EBU 3.5 guide catheter. Significant disease of the proximal-mid and Lcx was confirmed and PCI was performed. At the end the case, right radial sheath removed and arterial hemostasis achieved with placement of a Vasc band. LAD PCI: We advanced the Luge wire and positioned into the distal LAD. We predilated the lesion in mid and proximal LAD with 2.5 mm x 20mm balloon first. We used guideliner support to deliver the stent. We noted dissection in the mid LAD following angioplasty. Mid LAD was stented with a 2.5 mm X 38 mm Xience JUAN with no residual dissection. We covered the proximal and mid LAD segment with two overlapping stents 2.75 mm X 38 mm and 3.0 mm x 18 mm Xience JUAN. We used the same 3.0 mm stent balloon to post dilate the mid LAD stent. We noted focal haziness inside the mid LAD stent, possibly consistent with small thrombus. Further balloon angioplasty was performed with 2.5 mm balloon again inside the mid LAD stent. Final IVUS showed well apposed, well expanded stents with no edge dissection or thrombosis. Final PCI angiogram showed well expanded stent, 0% residual stenosis, and AIDA-III flow distally LCx PCI: We repositioned our Luge wire into the distal Lcx/OM branch. We pre-dilated the mid and proximal LCX lesion with the same 2.5 mmx 20mm balloon. We covered the lesion with two overlapping stents 2.75 mm X 33 mm and 2.5 mm X 28 mm Xience JUAN X 2. Final IVUS showed well apposed, well expanded stent with no edge dissection or thrombosis. Final PCI angiogram showed well expanded stent, 0% residual stenosis, and AIDA-III flow distally. Coronary Findings Diagnostic Dominance: Right Left Main: The vessel is moderate in size. The vessel exhibits minimal luminal irregularities. Left Anterior Descending: The vessel is moderate in size. The vessel exhibits mild disease. Prox LAD to Mid LAD lesion, 80% stenosed. The lesion is type C, located at the bend and diffuse. Mid LAD lesion, 90% stenosed. The lesion is type C, located at the bend and diffuse. First Diagonal Branch: The vessel is small in size. The vessel exhibits minimal luminal irregularities. Second Diagonal Branch: The vessel is small in size. The vessel exhibits minimal luminal irregularities. Ramus Intermedius: The vessel is moderate in size. The vessel exhibits minimal luminal irregularities. Left Circumflex: The vessel is moderate in size. The vessel exhibits mild disease. Prox Cx to Mid Cx lesion, 80% stenosed. The lesion is type C and diffuse. First Obtuse Marginal Branch: The vessel is small in size. Second Obtuse Marginal Branch: The vessel is moderate in size. The vessel exhibits minimal luminal irregularities. Third Obtuse Marginal Branch: The vessel is moderate in size. Intervention Prox LAD to Mid LAD lesion: Stent: Type of stent: drug-eluting. The stent used was a STENT COR SKYPOINT [id number]. Actions taken: stent inserted, stent placed across lesion and balloon removed. The stent was fully expanded. Stent strut was apposed. Inflation#1: Pressure = 20 sola; Duration = 20 sec. Inflation#2: Pressure = 16 sola; Duration = 16 sec. Inflation#3: Pressure = 16 soal; Duration = 12 sec. Inflation#4: Pressure = 16 sola; Duration = 6 sec. Inflation#5: Pressure = 16 sola; Duration = 12 sec. Supplies Used: STENT COR SKYPOINT [id number] Post-Intervention Lesion Assessment: The intervention was successful. The guidewire crossed the lesion. Device was deployed. The pre-interventional distal flow is normal (AIDA 3). Post-intervention AIDA flow is 3. There were no complications. Ultrasound (IVUS) was performed. Ultrasound supply: CATHETER US .014IN 20MHZ 5FR. There is a 0% residual stenosis post intervention. Mid LAD lesion: Angioplasty: Angioplasty using a standard balloon was performed prior to stent deployment. Balloon inserted, inflated, placed across lesion and removed. The balloon used was a CATHETER (more content not included)... CV CPACS HEMO [facility] [employer] Lipid 1996 panelon 3 Cholesterol [Mass/Vol] 178 mg/dL NINF - 200 mg/dL [employer] Cholesterol in HDL [Mass/Vol] 32 mg/dL Low 40 - 60 mg/dL [employer] Cholesterol in LDL [Mass/Vol] 118 mg/dL High 0 - <100 [employer] Cholesterol.total/Laura sterol in HDL [Mass ratio] 6 {ratio} [facility] [employer] Comment on above: Ref Range: < 3 Low Risk for CHD 3-6 Mod Risk for CHD > 6 High Risk for CHD Triglyceride [Mass/Vol] 140 mg/dL NINF - 150 mg/dL [facility] No Panel Informationon 07-07 Interpretation and review of laboratory results Abnormal [facility] Anesthesia Noteon 07-06-2022 Anesthesia Note Sedation Plan ASA class 2 - patient with mild systemic disease Mallampati class: III - soft palate, base of uvula visible. Sedation plan: local anesthesia and moderate (conscious sedation) Risks, benefits, and alternatives discussed with patient. Plan discussed with attending. Immediate reassessment prior to sedation: Patient's status reviewed and vital signs assessed; acceptable to perform procedure and proceed to administer sedation as planned. Normal [facility] ECG 12-LEADon 07-06-2022 ECG 12-LEAD IMPRESSION: Sinus rhythm Abnormal lateral Q waves Abnrm T, probable ischemia, anterolateral lds Normal [facility] Laboratory - Chemistry and C hemistry - challengeon 07-06-2022 Albumin [Mass/Vol] 3.6 g/dL Normal 3.4 - 5.0 g/dL [facility]; [facility] Work Phone: Albumin [Mass/Vol] 4.5 g/dL Abnormal 0.9 - 1.6 [facility]; [facility] Work Phone: ALT [Catalytic activity/Vol] 34 U/L Normal 14 - 59 U/L [facility]; [facility] Work Phone: Anion gap [Moles/Vol] 16 mmol/L Normal 10 - 20 mmol/L [facility]; [facility] Work Phone: AST [Catalytic activity/Vol] 22 U/L Normal 13 - 39 U/L [facility]; [facility] Work Phone: Bilirubin [Mass/Vol] 0.4 mg/dL Normal 0.2 - 1 .0 mg/dL [facility]; [facility] Work Phone: Calcium [Mass/Vol] 8.9 mg/dL Normal 8.5 - 10. 1 mg/dL [facility]; [facility] Work Phone: Chloride [Moles/Vol] 104 mmol/L Normal 98 - 10 7 mmol/L [facility]; [facility] Work Phone: CO2 [Moles/Vol] 25.8 mmol/L Normal 21.0 - 32.0 mmol/L [facility]; [facility] Work Phone: Creatinine [Mass/Vol] 1.11 mg/dL Abnormal 0.55 - 1.02 mg/dL [facility]; [facility] Work Phone: GFR/1.73 sq M.predicted among blacks MDRD (S/P/Bld) [Vol rate/Area] 60 {ML/MINUTE} Normal 60 - 999 {ML/MINUTE} [facility]; [facility] Work Phone: GFR/1.73 sq M.predicted MDRD (S/P/Bld) [Vol rate/Area] 49 {ML/MINUTE} Abnormal 60 - 999 {ML/MINUTE} [facility]; [facility]. Work Phone: Globulin (S) [Mass/Vol] 0.8 g/dL Abnormal 1.5 - 3.8 g/ dL [facility]; [facility] Work Phone: Glucose [Mass/Vol] 161 mg/dL Abnormal 74 - 106 mg/dL [facility]; [facility] Work Phone: Potassium [Moles/Vol] 3.2 mmol/L Abnormal 3.5 - 5.1 mmol/L [facility]; [facility] Work Phone: Protein [Mass/Vol] 4.4 g/dL Abnormal 6.4 - 8.2 g/dL [facility]; [facility] Work Phone: Sodium [Moles/Vol] 143 mmol/L Normal 136 - 145 mmol/L [facility]; [facility] Work Phone: Urea nitrogen (U) [Mass/Vol] 159.6 pg/mL Abnormal 0.0 - 51.4 pg/mL [facility]; [facility] Work Phone: Urea nitrogen [Mass/Vol] 11 mg/dL Normal 7 - 18 mg/dL [facility]; [facility] Work Phone: Urea nitrogen/Creatinine [Mass ratio] 10 {ratio} Normal 0 - 30 {ratio} [facility]; [facility] Work Phone: Laboratory - Coagulationon 0 - aPTT Coag (Bld) [Time] 29.8 s Normal 25.4 - 38.4 {sec} [facility]; [facility] Work Phone: INR Coag (PPP) [Relative time] 1.2 {INR} Normal 0.8 - 1.2 [facility]; [facility] Work Phone: PT Coag (Bld) [Time] 13.7 s Normal 9.3 - 1 4.1 {sec} [facility]; [facility] Hospital[facility] Work Phone: Laboratory - Hematology and Cell countson 07-06-2022 Erythrocyte distribution width (RBC) [Ratio] 12.8 % Normal 12.0 - 15.6 % [facility]; [facility] Work Phone: Hematocrit (Bld) [Volume fraction] 44.9 % Normal 34.0 - 46.0 % [facility]; [facility] Work Phone: Hemoglobin (Bld) [Mass/Vol] 15.3 g/dL Normal 12.0 - 16.0 g/dL [facility]; [facility] Work Phone: Lymphocytes/100 WBC (Bld) 37 % Normal 20 - 40 % [facility]; [facility] Hospital[facility] Work Phone: MCH (RBC) [Entitic mass] 32 pg Normal 27 - [address] [facility]; [facility] Work Phone: MCHC (RBC) [Mass/Vol] 34 {X10_3} Normal 32 - 3 6 {X10_3} [facility] Work Phone: MCV (RBC) [Entitic vol] 94 fL Normal 80 - 99 fL [facility]; [facility] Work Phone: Morphology Pollo (Bld) [Interp] N/A Normal [facility]; [facility] Work Phone: Platelet mean volume (Bld) [Entitic vol] 7.8 fL Normal 6.6 - 10.5 fL [facility] [employer] [facility] [email or web address].; [facility]BYTERIAN HOSPITALFanKave [employer] [facility] [employer] [facility] [email or web address]. Work Phone: Platelets (Bld) [#/Vol] 285 {x10EE3/UL} Normal 1 50 - 450 {x10EE3/UL} [facility] [employer] [facility] [email or web address].; [employer] [facility] [employer] [facility] [email or web address]. Work Phone: RBC (Bld) [#/Vol] 4.78 {x_10EE6/UL} Normal 4.10 - 5.30 {x_10EE6/UL} [facility] [employer] [facility] [email or web address].; [facility]REN[facility] [employer] [facility] [employer] [facility] [email or web address]. Work Phone: WBC (Bld) [#/Vol] 10.4 {x_10EE3/UL} Normal 4.5 - 10.8 {x_10EE3/UL} [facility] [employer] [facility] [email or web address] [employer] [facility] [employer] [facility] [email or web address]. Work Phone: No Panel Informationon 07-06 Interpretation and review of laboratory results Abnormal [facility] POCT ACT 154 High [facility] POCT ACT 283 High [facility] POCT ACT 244 [facility] Performed by: [facility], [address] [place] [address] CLIA ID: [id number] [facility] AGE 67 {years} Normal [facility] HospitalKrave-N [facility] [email or web address].; [employer] [facility] [employer] [facility] [email or web address]. Work Phone: ALK PHOS 109 U/L Normal 46 - 116 U/L [facility] [employer] [facility]naSelect[employer]; [employer] [facility] [employer] [facility] [email or web address]. Work Phone: CBC + DIFF Normal [facility] HospitalKrave-N [facility], S[facility]rnaSelecta Biosciences; [employer] [facility] [employer] [facility] Work Phone: CELL COUNT 100 Normal [facility] HospitalKrave-N [facility] S[facility]rnaSelect[facility] [employer]; [employer] MaintenanceWayne County Hospital [facility], Inc. Work Phone: CMP with eGFR Normal [facility].; [facility]. Work Phone: EO 2.0 % Normal 0.0 - 4.0 % [facility].; [facility], [facility]. Work Phone: MANUAL DIFF SEE BELOW Normal [facility].; [facility], [facility]. Work Phone: MONOS 8 % Normal 0 - 8 % [facility].; [facility], [facility]. Work Phone: PROTHROMBIN TIME AND INR Normal [facility].; [facility], [facility]. Work Phone: SEGS 53 % Normal 50 - 70 % [facility] Center[facility] Finger Industries [facility].; [facility], [facility]. Work Phone: 109 U/L Normal 46 - 116 U/L [facility].; [facility], [facility]. Work Phone: 16 mmol/L Normal 10 - 20 mmol/L [facility].; [facility], [facility]. Work Phone: 67 {years} Normal [facility] CenterTrigger Finger Industries [facility].; [facility], [facility]. Work Phone: N/A Normal [facility] CenterTrigger Finger Industries [facility].; [facility], [facility]. Work Phone: SEE BELOW Normal [facility] CenterTrigger Finger Industries [facility].; [facility], [facility]. Work Phone: 53 % Normal 50 - 70 % [facility] CenterTrigger Finger Industries [facility].; [facility], [facility]. Work Phone: [phone] 37 % Normal 20 - 40 % [facility]; [facility] Work Phone: 8 % Normal 0 - 8 % [facility]; [facility] Work Phone: 2.0 % Normal 0.0 - 4.0 % [facility]; [facility] Work Phone: [address] [facility]; [facility] Work Phone: Laboratory - Chemistry and C hemistry - challengeon 07-05-2022 Albumin [Mass/Vol] 3.5 g/dL Normal 3.4 - 5.0 g/dL [facility]; [facility] Work Phone: Albumin [Mass/Vol] 1.0 g/dL Normal 0.9 - 1.6 [facility]; [facility] Work Phone: ALT [Catalytic activity/Vol] 35 U/L Normal 14 - 59 U/L [facility]; [facility] Work Phone: Anion gap [Moles/Vol] 16 mmol/L Normal 10 - 20 mmol/L [facility]; [facility] Work Phone: AST [Catalytic activity/Vol] 24 U/L Normal 13 - 39 U/L [facility]; [facility] Work Phone: Bilirubin [Mass/Vol] 0.3 mg/dL Normal 0.2 - 1 .0 mg/dL [facility]; [facility] Work Phone: Calcium [Mass/Vol] 9.1 mg/dL Normal 8.5 - 10. 1 mg/dL [facility]; [facility] Work Phone: Chloride [Moles/Vol] 106 mmol/L Normal 98 - 10 7 mmol/L [facility]; [facility] Work Phone: CO2 [Moles/Vol] 24.8 mmol/L Normal 21.0 - 32.0 mmol/L [facility]; [facility] Work Phone: Creatinine [Mass/Vol] 1.04 mg/dL Abnormal 0.55 - 1.02 mg/dL [facility]; [facility] Work Phone: GFR/1.73 sq M.predicted among blacks MDRD (S/P/Bld) [Vol rate/Area] mL/min/{1.73_m2} Normal 60 - 999 {ML/MINUTE} [facility]; [facility] Work Phone: GFR/1.73 sq M.predicted MDRD (S/P/Bld) [Vol rate/Area] 53 {ML/MINUTE} Abnormal 60 - 999 {ML/MINUTE} [facility]; [facility] Work Phone: Globulin (S) [Mass/Vol] 3.4 g/dL Normal 1.5 - 3.8 g/ dL [facility]; [facility] Work Phone: Glucose [Mass/Vol] 105 mg/dL Normal 74 - 106 mg/dL [facility]; [facility] Work Phone: Potassium [Moles/Vol] 3.9 mmol/L Normal 3.5 - 5.1 mmol/L [facility]; [facility] Work Phone: Protein [Mass/Vol] 6.9 g/dL Normal 6.4 - 8.2 g/dL [facility]; [facility] Work Phone: Sodium [Moles/Vol] 143 mmol/L Normal 136 - 145 mmol/L [facility]; [facility] Work Phone: Urea nitrogen (U) [Mass/Vol] 172.4 pg/mL Abnormal 0.0 - 51.4 pg/mL [facility]; [facility] Work Phone: Urea nitrogen (U) [Mass/Vol] 169.7 pg/mL Abnormal 0.0 - 51.4 pg/mL [facility]; [facility] Work Phone: Urea nitrogen (U) [Mass/Vol] 191.9 pg/mL Abnormal 0.0 - 51.4 pg/mL [facility]; [facility] Work Phone: Urea nitrogen (U) [Mass/Vol] 179.5 pg/mL Abnormal 0.0 - 51.4 pg/mL [facility]; [facility] Work Phone: Urea nitrogen [Mass/Vol] 16 mg/dL Normal 7 - 18 mg/dL [facility]; [facility] Work Phone: Urea nitrogen/Creatinine [Mass ratio] 15 {ratio} Normal 0 - 30 {ratio} [facility]; [facility] Work Phone: Laboratory - Hematology and Cell countson 07-05-2022 Basophils (Bld) [#/Vol] 0.10 {x10EE3/UL} Normal 0.00 - 0.10 {x10EE3/UL} [facility]; [facility] Work Phone: Basophils/100 WBC (Bld) 1.2 % Normal 0.0 - 2.0 % [facility]; [facility] Work Phone: Eosinophils (Bld) [#/Vol] 0.30 {x10EE3/UL} Normal 0.00 - 0.50 {x10EE3/UL} [facility]; [facility] Work Phone: Eosinophils/100 WBC (Bld) 3.7 % Normal 0.0 - 7.0 % [facility]; [facility] Work Phone: Erythrocyte distribution width (RBC) [Ratio] 13.3 % Normal 12.0 - 15.6 % [facility]; [facility] Work Phone: ESR (Bld) [Velocity] 11 mm/h Normal 0 - 30 mm/h Eas [facility]; [facility] Work Phone: Hematocrit (Bld) [Volume fraction] 45.9 % Normal 34.0 - 46.0 % [facility]; [facility] Work Phone: Hemoglobin (Bld) [Mass/Vol] 15.4 g/dL Normal 12.0 - 16.0 g/dL [facility]; [facility] Work Phone: Lymphocytes (Bld) [#/Vol] 3.40 {x10EE3/UL} Abnormal 0.80 - 2.80 {x10EE3/UL} [facility] Work Phone: Lymphocytes/100 WBC (Bld) 49.4 % Abnormal 20.0 - 45.0 % [facility].; [facility] Work Phone: MCH (RBC) [Entitic mass] 32 pg Normal 27 - [address] [facility]; [facility] Work Phone: MCHC (RBC) [Mass/Vol] 34 {X10_3} Normal 32 - 3 6 {X10_3} [facility] Work Phone: MCV (RBC) [Entitic vol] 96 fL Normal 80 - 99 fL E [facility].; [facility] Work Phone: Monocytes (Bld) [#/Vol] 0.40 {x10EE3/UL} Normal 0.20 - 1.00 {x10EE3/UL} [facility].; [facility] Work Phone: Monocytes/100 WBC (Bld) 5.3 % Normal 0.0 - 10.0 % [facility] Work Phone: Morphology Pollo (Bld) [Interp] N/A Normal [facility]; [facility] Work Phone: Neutrophils (Bld) [#/Vol] 2.70 {x10EE3/UL} Normal 1.50 - 7.10 {x10EE3/UL} [facility] Work Phone: Neutrophils/100 WBC (Bld) 40.4 % Abnormal 46.0 - 76.0 % [facility]; [facility] Work Phone: Platelet mean volume (Bld) [Entitic vol] 7.9 fL Normal 6.6 - 10.5 fL [facility] Work Phone: Platelets (Bld) [#/Vol] 334 {x10EE3/UL} Normal 1 50 - 450 {x10EE3/UL} [facility] Work Phone: RBC (Bld) [#/Vol] 4.79 {x_10EE6/UL} Normal 4.10 - 5.30 {x_10EE6/UL} [facility]; [facility] Work Phone: WBC (Bld) [#/Vol] 6.8 {x_10EE3/UL} Normal 4.5 - 10.8 {x_10EE3/UL} [facility].; [facility] Work Phone: No Panel Informationon 07-05 AGE 67 {years} Normal [facility]; [facility] Work Phone: ALK PHOS 105 U/L Normal 46 - 116 U/L [facility]; [facility] Work Phone: CBC + DIFF Normal [facility]; [facility]. Work Phone: CMP with eGFR Normal [facility]; [facility] Work Phone: D-DIMER QUANT 549 ng/mL Abnormal 0 - 230 ng/mL [facility]. Work Phone: D-DIMER, QUANTITATIVE Normal Eas [facility]; [facility]. Work Phone: MANUAL DIFF N/A Normal [facility]; [facility]. Work Phone: N/A Normal [facility].; [facility]. Work Phone: 105 U/L Normal 46 - 116 U/L [facility]; [facility] Work Phone: 16 mmol/L Normal 10 - 20 mmol/L [facility]; [facility] Work Phone: 67 {years} Normal [facility].; [facility] Work Phone: 549 ng/mL Abnormal 0 - 230 ng/mL [facility]; [facility] Work Phone: Basophil percentageon 2021 Basophil percentage < 0.9 mg/dL 0.55-1.02 [facility] Work Phone: No Panel Informationon 08-11 CREATININE WB < 0.9 Normal 0.55 - 1.02 mg/dL [facility]; [facility] Work Phone: EGFR WB > 60.0000 Normal [facility]; [facility] Work Phone: < 0.9 Normal 0.55 - 1.02 mg/dL [facility]; [facility], [facility] Work Phone: > 60.[address] [facility]; [facility], [facility] Work Phone: Bedside Estimated GFR (eGFR) > 60.0000 mL/min >60 [facility] Work Phone: Laboratory - Chemistry and C hemistry - challengeon 04-13-2021 Albumin [Mass/Vol] 1.1 g/dL Normal 0.9 - 1.6 [facility]; [facility], [facility] Albumin [Mass/Vol] 3.5 g/dL Normal 3.4 - 5.0 g/dL [facility]; [facility], [facility] ALT [Catalytic activity/Vol] 28 U/L Normal 14 - 59 U/L [facility]; [facility], [facility] ALT No additional P-5'-P [Catalytic activity/Vol] 28 U/L Normal 14 - 59 U/L [facility]; [facility], [facility] Anion gap [Moles/Vol] 16 mmol/L Normal 10 - 20 mmol/L [facility]; [facility], [facility] AST [Catalytic activity/Vol] 17 U/L Normal 13 - 39 U/L [facility]; [facility], [facility] Bilirubin [Mass/Vol] 0.3 mg/dL Normal 0.2 - 1 .0 mg/dL [facility]; [facility], [facility] Calcium [Mass/Vol] 9.0 mg/dL Normal 8.5 - 10. 1 mg/dL [facility]; [facility] Chloride [Moles/Vol] 104 mmol/L Normal 98 - 10 7 mmol/L [facility]; [facility] CO2 [Moles/Vol] 26.2 mmol/L Normal 21.0 - 32.0 mmol/L [facility]; [facility] Creatinine [Mass/Vol] 0.97 mg/dL Normal 0.55 - 1.02 mg/dL [facility]; [facility], [facility] GFR/1.73 sq M.predicted among blacks MDRD (S/P/Bld) [Vol rate/Area] mL/min/{1.73_m2} Normal 60 - 999 {ML/MINUTE} [facility].; [facility] GFR/1.73 sq M.predicted MDRD (S/P/Bld) [Vol rate/Area] 58 {ML/MINUTE} Abnormal 60 - 999 {ML/MINUTE} [facility].; [facility], [facility]. Globulin (S) [Mass/Vol] 3.2 g/dL Normal 1.5 - 3.8 g/ dL [facility]; [facility], [facility] Glucose [Mass/Vol] 69 mg/dL Abnormal 74 - 106 mg/dL [facility]; [facility] Potassium [Moles/Vol] 4.2 mmol/L Normal 3.5 - 5.1 mmol/L [facility]; [facility] Protein [Mass/Vol] 6.7 g/dL Normal 6.4 - 8.2 g/dL [facility]; [facility], [facility] Sodium [Moles/Vol] 142 mmol/L Normal 136 - 145 mmol/L [facility]; [facility], [facility] Urea nitrogen [Mass/Vol] 19 mg/dL Abnormal 7 - 18 mg/dL [facility].; [facility] Urea nitrogen/Creatinine [Mass ratio] 20 {ratio} Normal 0 - 30 {ratio} [facility].; [facility] Laboratory - Hematology and Cell countson 04-13-2021 Basophils (Bld) [#/Vol] 0.00 {x10EE3/UL} Normal 0.00 - 0.10 {x10EE3/UL} [facility].; [facility], [facility] Basophils/100 WBC (Bld) 0.1 % Normal 0.0 - 2.0 % [facility].; [facility], [facility] Eosinophils (Bld) [#/Vol] 0.20 {x10EE3/UL} Normal 0.00 - 0.50 {x10EE3/UL} [facility].; [facility] Eosinophils/100 WBC (Bld) 2.0 % Normal 0.0 - 7.0 % [facility].; [facility] Erythrocyte distribution width (RBC) [Ratio] 13.2 % Normal 12.0 - 15.6 % [facility].; [facility], [facility] Hematocrit (Bld) [Volume fraction] 45.5 % Normal 34.0 - 46.0 % [facility].; [facility], [facility] Hemoglobin (Bld) [Mass/Vol] 15.4 g/dL Normal 12.0 - 16.0 g/dL [facility].; [facility], [facility] Lymphocytes (Bld) [#/Vol] 2.90 {x10EE3/UL} Abnormal 0.80 - 2.80 {x10EE3/UL} [facility].; [facility] Lymphocytes/100 WBC (Bld) 27.4 % Normal 20.0 - 45.0 % [facility] MCH (RBC) [Entitic mass] 32 pg Normal 27 - 33 pg [facility], [facility].; [facility] MCHC (RBC) [Mass/Vol] 34 {X10_3} Normal 32 - 3 6 {X10_3} [facility] - [facility] MCV (RBC) [Entitic vol] 96 fL Normal 80 - 99 fL E [facility], [facility].; [facility] Monocytes (Bld) [#/Vol] 0.70 {x10EE3/UL} Normal 0.20 - 1.00 {x10EE3/UL} [facility] Monocytes/100 WBC (Bld) 6.5 % Normal 0.0 - 10.0 % [facility] Morphology Pollo (Bld) [Interp] N/A Normal [facility].; [facility] Neutrophils (Bld) [#/Vol] 6.80 {x10EE3/UL} Normal 1.50 - 7.10 {x10EE3/UL} [facility] Neutrophils/100 WBC (Bld) 64.0 % Normal 46.0 - 76.0 % [facility] Platelet mean volume (Bld) [Entitic vol] 8.6 fL Normal 6.6 - 10.5 fL [facility] [employer] [facility] [employer] [facility] Platelets (Bld) [#/Vol] 327 {x10EE3/UL} Normal 1 50 - 450 {x10EE3/UL} [facility] RBC (Bld) [#/Vol] 4.76 {x_10EE6/UL} Normal 4.10 - 5.30 {x_10EE6/UL} [facility] WBC (Bld) [#/Vol] 10.6 {x_10EE3/UL} Normal 4.5 - 10.8 {x_10EE3/UL} [facility], [facility]. No Panel Informationon 04-13 AGE 65 {years} Normal [facility], [facility].; [facility], [facility]. ALK PHOS 106 U/L Normal 46 - 116 U/L [facility], [facility].; [facility] CBC + DIFF Normal [facility], [facility].; [facility] CMP with eGFR Normal [facility].; [facility] MANUAL DIFF N/A Normal [facility], [facility].; [facility], [facility]. 106 U/L Normal 46 - 116 U/L [facility], [facility].; [facility] 16 mmol/L Normal 10 - 20 mmol/L [facility], [facility].; [facility] 65 {years} Normal [facility], [facility].; [facility] N/A Normal [facility] Laboratory - Chemistry and C hemistry - challengeon 03-17-2020 Albumin [Mass/Vol] 3.6 g/dL Normal 3.2 - 4.8 g/dL [facility] Albumin BCP dye [Mass/Vol] 3.6 g/dL Normal 3.2 - 4.8 g/dL [facility].; [facility]. Albumin/Globulin [Mass ratio] 1.4 {ratio} Normal 0.9 - 1.6 {ratio} [facility]; [facility] ALP [Catalytic activity/Vol] 104 U/L Normal 38 - 126 U/L [facility].; [facility]. ALT [Catalytic activity/Vol] 24 U/L Normal 10 - 49 U/L [facility].; [facility]. ALT No additional P-5'-P [Catalytic activity/Vol] 24 U/L Normal 10 - 49 U/L [facility]; [facility]. ALT With P-5'-P [Catalytic activity/Vol] 24 U/L Normal 10 - 49 U/L [facility].; [facility]. AST [Catalytic activity/Vol] 27 U/L Normal 8 - 34 U/L [facility].; [facility]. AST With P-5'-P [Catalytic activity/Vol] 27 U/L Normal 8 - 34 U/L [facility].; [facility], [facility]. Bilirubin [Mass/Vol] 0.50 mg/dL Normal 0.20 - 1.20 mg/dL [facility].; [facility] Calcium [Mass/Vol] 9.8 mg/dL Normal 8.7 - 10. 4 mg/dL [facility].; [facility], [facility]. Chloride [Moles/Vol] 108 mmol/L Normal 98 - 110 meq/L [facility]; [facility], [facility] CO2 [Moles/Vol] 25 mmol/L Normal 22 - 32 meq/L [facility]; [facility] Creatinine [Mass/Vol] 0.90 mg/dL Normal 0.50 - 1.20 mg/dL [facility]; [facility] GFR/1.73 sq M.predicted among blacks MDRD (S/P/Bld) [Vol rate/Area] mL/min/{1.73_m2} Normal [facility].; [facility] Work Phone: GFR/1.73 sq M.predicted among non-blacks MDRD (S/P/Bld) [Vol rate/Area] mL/min/{1.73_m2} Normal [facility].; [facility] Work Phone: Globulin (S) [Mass/Vol] 2.6 g/dL Normal 1.5 - 3.8 g/ dL [facility]; [facility] Glucose [Mass/Vol] 102 mg/dL Normal 82 - 115 mg/dL [facility]; [facility] Potassium [Moles/Vol] 3.8 mmol/L Normal 3.5 - 5.0 meq/L [facility]; [facility] Protein [Mass/Vol] 6.2 g/dL Normal 5.7 - 8.2 g/dL [facility]; [facility] Sodium [Moles/Vol] 142 mmol/L Normal 136 - 145 meq/L [facility]; [facility], [facility] Urea nitrogen [Mass/Vol] 20.0 mg/dL Normal 8.0 - 22.0 mg/dL [facility]; [facility], [facility] Urea nitrogen/Creatinine [Mass ratio] 22.2 {ratio} Abnormal 10.0 - 22.0 {ratio} [facility]; [facility]. Laboratory - Hematology and Cell countson 03-17-2020 Basophils (Bld) [#/Vol] 0.00 {10^3/mcL} Normal 0 .00 - 0.27 {10^3/mcL} [facility]; [facility] Work Phone: Basophils/100 WBC (Bld) 0.7 % Normal 0.0 - 2.5 % [facility]; [facility] Work Phone: Eosinophils (Bld) [#/Vol] 0.30 {10^3/mcL} Normal 0.00 - 0.65 {10^3/mcL} [facility].; [facility] Work Phone: Eosinophils/100 WBC (Bld) 3.7 % Normal 0.0 - 6.0 % [facility]; [facility] Work Phone: Erythrocyte distribution width (RBC) [Ratio] 13.6 % Normal 11.5 - 15.5 % [facility]; [facility] Hematocrit (Bld) [Volume fraction] 44.4 % Normal 34.0 - 46.0 % [facility]; [facility] Hemoglobin (Bld) [Mass/Vol] 15.0 g/dL Normal 12.0 - 16.0 g/dL [facility]; [facility], [facility] Lymphocytes (Bld) [#/Vol] 2.80 {10^3/mcL} Normal 0.90 - 4.32 {10^3/mcL} [facility].; [facility] Work Phone: Lymphocytes/100 WBC (Bld) 40.0 % Normal 20.0 - 40.0 % [facility]; [facility]. Work Phone: MCH (RBC) [Entitic mass] 32.5 pg Normal 27.0 - 33.0 pg [facility].; [facility], [facility]. MCHC (RBC) [Mass/Vol] 33.8 g/dL Normal 32.0 - 36.0 g/dL [facility].; [facility], [facility] MCV (RBC) [Entitic vol] 96.1 fL Normal 80.0 - 99.0 fL [facility].; [facility], [facility] Monocytes (Bld) [#/Vol] 0.30 {10^3/mcL} Normal 0 .09 - 1.40 {10^3/mcL} [facility].; [facility], [facility]. Work Phone: Monocytes/100 WBC (Bld) 4.5 % Normal 2.0 - 13.0 % [facility].; [facility], [facility]. Work Phone: Neutrophils (Bld) [#/Vol] 3.60 {10^3/mcL} Normal 2.25 - 8.10 {10^3/mcL} [facility].; [facility], [facility]. Work Phone: Neutrophils/100 WBC (Bld) 51.1 % Normal 50.0 - 75.0 % [facility].; [facility], [facility]. Work Phone: Platelet mean volume (Bld) [Entitic vol] 9.0 fL Normal 6.6 - 10.5 fL [facility].; [facility], [facility]. Platelets (Bld) [#/Vol] 283 {10^3/mcL} Normal 15 0 - 450 {10^3/mcL} [facility].; [facility] RBC (Bld) [#/Vol] 4.62 {10^6/mcL} Normal 4.10 - 5.30 {10^6/mcL} [facility].; [facility] WBC (Bld) [#/Vol] 7.10 {10^3/mcL} Normal 4.50 - 10.80 {10^3/mcL} [facility] [facility].; [facility] City HospitalRift.io No Panel Informationon 03-17 Basophil, Absolute 0.00 {10^3/mcL} Normal 0.00 - 0.27 {10^3/mcL} [facility] CenterTrigger Finger Industries [facility].; [facility] HOSPITALFanKave [facility] [employer] [facility] [email or web address] Work Phone: Electrolyte Balance 9.0 meq/L Normal 4.0 - 15 .0 meq/L [facility] [employer] [facility], SmyrnaTrigger [employer]inger Industries [facility].; [facility]PRESBYTER[facility] HOSPITALFanKave [facility] [employer] [facility], [place]. Eosinophil, Absolute 0.30 {10^3/mcL} Normal 0.00 - 0.65 {10^3/mcL} [facility] [employer] [facility], [place].; [facility]PRESBY[facility] HOSPITALFanKave [facility] [employer] [facility], [place]. Work Phone: Lymphocyte, Absolute 2.80 {10^3/mcL} Normal 0.90 - 4.32 {10^3/mcL} [facility] CenterRift.io.; [employer] [facility] [employer] [facility], [place]. Work Phone: Monocyte, Absolute 0.30 {10^3/mcL} Normal 0.09 - 1.40 {10^3/mcL} [facility] [employer] [facility], [place].; [facility]BY[facility] HOSPITALFanKave [facility] [employer] [facility], [place]. Work Phone: Neutrophil, Absolute 3.60 {10^3/mcL} Normal 2.25 - 8.10 {10^3/mcL} [facility] [employer] [facility], [place].; [employer] Operation and MaintenanceLakeview Regional Medical Center [employer] [facility] [place]. Work Phone: 142 meq/L Normal 136 - 145 meq/L [facility]; [facility] 0.90 mg/dL Normal 0.50 - 1.20 mg/dL [facility]; [facility] 22.2 {ratio} Abnormal 10.0 - 22.0 {ratio} [facility]; [facility] 2.6 g/dL Normal 1.5 - 3.8 g/dL [facility]; [facility] 0.50 mg/dL Normal 0.20 - 1.20 mg/dL [facility]; [facility] 3.7 % Normal 0.0 - 6.0 % [facility]; [facility] Work Phone: 0.7 % Normal 0.0 - 2.5 % [facility]; [facility] Work Phone: Laboratory - Chemistry and C hemistry - challengeon 04-02-2019 Calcium [Mass/Vol] 9.0 mg/dL Normal 8.4 - 10. 1 mg/dL [facility]; [facility] Chloride [Moles/Vol] 108 mmol/L Normal 98 - 110 meq/L [facility]; [facility] CO2 [Moles/Vol] 29 mmol/L Normal 22 - 32 meq/L [facility]; [facility], [facility] Creatinine [Mass/Vol] 0.90 mg/dL Normal 0.50 - 1.20 mg/dL [facility]; [facility], [facility] GFR/1.73 sq M.predicted among blacks MDRD (S/P/Bld) [Vol rate/Area] mL/min/{1.73_m2} Normal [facility]; [facility] Work Phone: GFR/1.73 sq M.predicted among non-blacks MDRD (S/P/Bld) [Vol rate/Area] mL/min/{1.73_m2} Normal [facility]; [facility] Work Phone: Glucose [Mass/Vol] 91 mg/dL Normal 82 - 115 mg/dL [facility]; [facility] Potassium [Moles/Vol] 3.9 mmol/L Normal 3.5 - 5.0 meq/L [facility]; [facility] Sodium [Moles/Vol] 142 mmol/L Normal 136 - 145 meq/L [facility]; [facility] Urea nitrogen [Mass/Vol] 12.0 mg/dL Normal 8.0 - 22.0 mg/dL [facility]; [facility] Urea nitrogen/Creatinine [Mass ratio] 13.3 {ratio} Normal 10.0 - 22.0 {ratio} [facility]; [facility] Laboratory - Hematology and Cell countson 04-02-2019 Basophils (Bld) [#/Vol] 0.10 {10^3/mcL} Normal 0 .00 - 0.27 {10^3/mcL} [facility]; [facility] Work Phone: Basophils/100 WBC (Bld) 1.1 % Normal 0.0 - 2.5 % [facility]; [facility] Work Phone: Eosinophils (Bld) [#/Vol] 0.10 {10^3/mcL} Normal 0.00 - 0.65 {10^3/mcL} [facility]; [facility] HospitalTrigger Finger Industries [facility] Work Phone: Eosinophils/100 WBC (Bld) 1.6 % Normal 0.0 - 6.0 % [facility]; [facility] Work Phone: Erythrocyte distribution width (RBC) [Ratio] 12.8 % Normal 11.5 - 15.5 % [facility]; [facility] Hematocrit (Bld) [Volume fraction] 45.1 % Normal 34.0 - 46.0 % [facility]; [facility] Hemoglobin (Bld) [Mass/Vol] 15.5 g/dL Normal 12.0 - 16.0 g/dL [facility]; [facility] HospitalTrigger Finger Industries [facility] Lymphocytes (Bld) [#/Vol] 3.70 {10^3/mcL} Normal 0.90 - 4.32 {10^3/mcL} [facility].; [facility] HospitalTrigger Finger Industries [facility] Work Phone: Lymphocytes/100 WBC (Bld) 44.2 % Abnormal 20.0 - 40.0 % [facility]; [facility] HospitalTrigger Finger Industries [facility] Work Phone: MCH (RBC) [Entitic mass] 32.6 pg Normal 27.0 - 33.0 pg [facility].; [facility] HospitalTrigger Finger Industries [facility]. MCHC (RBC) [Mass/Vol] 34.3 g/dL Normal 32.0 - 36.0 g/dL [facility].; [facility] HospitalTrigger Finger Industries [facility] MCV (RBC) [Entitic vol] 95.1 fL Normal 80.0 - 99.[address] [facility]; [facility] HospitalTrigger Finger Industries [facility] Monocytes (Bld) [#/Vol] 0.30 {10^3/mcL} Normal 0 .09 - 1.40 {10^3/mcL} [facility] [employer] [facility], [email or web address].; [employer] [facility] [employer] [facility] [place], [employer]. Work Phone: Monocytes/100 WBC (Bld) 4.1 % Normal 2.0 - 13.0 % [facility] [employer] [facility] [place], [employer].; [employer] [facility] [employer] [facility] [place], [employer]. Work Phone: Neutrophils (Bld) [#/Vol] 4.10 {10^3/mcL} Normal 2.25 - 8.10 {10^3/mcL} [facility] HospitalKrave-N [facility], [place]rnaTrigger Finger Industries Inc.; [employer] [facility] [email or web address], [employer]. Work Phone: Neutrophils/100 WBC (Bld) 49.0 % Abnormal 50.0 - 75.0 % [facility] [employer] [facility], [place].; [employer] [facility] [employer] [facility] [place], [employer]. Work Phone: Platelet mean volume (Bld) [Entitic vol] 8.9 fL Normal 6.6 - 10.5 fL [facility] HospitalKrave-N [facility], [place]Rift.[place].; [employer] Operation and MaintenanceE[facility] [employer] [facility] [place], [employer]. Platelets (Bld) [#/Vol] 277 {10^3/mcL} Normal 15 0 - 450 {10^3/mcL} [facility] [employer].; [employer] [facility] [employer] [facility] [place], [employer]. RBC (Bld) [#/Vol] 4.75 {10^6/mcL} Normal 4.10 - 5.30 {10^6/mcL} [facility] [employer].; [employer] [facility] [employer] [facility] [place], [employer]. WBC (Bld) [#/Vol] 8.30 {10^3/mcL} Normal 4.50 - 10.80 {10^3/mcL} [facility] [employer] [facility] [email or web address], [employer]. No Panel Informationon 04-02 Basophil, Absolute 0.10 {10^3/mcL} Normal 0.00 - 0.27 {10^3/mcL} [employer].; [employer] MaintenanceE[employer] [place] [email or web address]. Work Phone: Electrolyte Balance 5.0 meq/L Normal 4.0 - 15 .0 meq/L [facility] CenterRift.io.; [employer] [facility] SystemRift.io. Eosinophil, Absolute 0.10 {10^3/mcL} Normal 0.00 - 0.65 {10^3/mcL} [facility] CenterRift.io.; [employer] Operation and MaintenanceLakeview Regional Medical Center [employer] [facility], [place]. Work Phone: Lymphocyte, Absolute 3.70 {10^3/mcL} Normal 0.90 - 4.32 {10^3/mcL} [facility] CenterRift.io.; [employer] Operation and MaintenanceLakeview Regional [facility] Center [employer] [facility], [place]. Work Phone: Monocyte, Absolute 0.30 {10^3/mcL} Normal 0.09 - 1.40 {10^3/mcL} [facility] [employer] [facility], [place].; [employer] Operation and MaintenanceLakeview Regional Medical Center [employer] [facility], [place]. Work Phone: Neutrophil, Absolute 4.10 {10^3/mcL} Normal 2.25 - 8.10 {10^3/mcL} [facility] [employer] [facility], [place].; [employer] [facility] [employer] [facility], [place]. Work Phone: 1.6 % Normal 0.0 - 6.0 % [facility] [employer] [facility], [place].; [employer] [facility] [employer] [facility] [place]. Work Phone: 1.1 % Normal 0.0 - 2.5 % [facility] [employer] [facility], [place].; [employer] [facility] [employer] [facility], [place]. Work Phone: Laboratory - Hematology and Cell countson 05-27-2018 Basophils (Bld) [#/Vol] 0.00 {10^3/mcL} Normal 0 .00 - 0.27 {10^3/mcL} [facility] HospitalKrave-N [facility], [place].; [employer] [facility] Zimmerman PhoneTell. Work Phone: Basophils/100 WBC (Bld) 0.4 % Normal 0.0 - 2.5 % [facility].; [facility] HospitalTrigger Finger Industries [facility]. Work Phone: Eosinophils (Bld) [#/Vol] 0.20 {10^3/mcL} Normal 0.00 - 0.65 {10^3/mcL} [facility].; [facility], [facility] Work Phone: Eosinophils/100 WBC (Bld) 2.4 % Normal 0.0 - 6.0 % [facility].; [facility] HospitalTrigger Finger Industries [facility] Work Phone: Erythrocyte distribution width (RBC) [Ratio] 13.8 % Normal 11.5 - 15.5 % [facility].; [facility], [facility] Hematocrit (Bld) [Volume fraction] 43.1 % Normal 34.0 - 46.0 % [facility].; [facility] HospitalTrigger Finger Industries [facility] Hemoglobin (Bld) [Mass/Vol] 14.5 g/dL Normal 12.0 - 16.0 g/dL [facility].; [facility], [facility] Lymphocytes (Bld) [#/Vol] 3.30 {10^3/mcL} Normal 0.90 - 4.32 {10^3/mcL} [facility].; [facility] HospitalTrigger Finger Industries [facility] Work Phone: Lymphocytes/100 WBC (Bld) 39.1 % Normal 20.0 - 40.0 % [facility].; [facility] HospitalTrigger Finger Industries [facility] Work Phone: MCH (RBC) [Entitic mass] 32.3 pg Normal 27.0 - 33.0 pg [facility].; [facility], [facility] MCHC (RBC) [Mass/Vol] 33.5 g/dL Normal 32.0 - 36.0 g/dL [facility] CenterRift.io.; [facility] HospitalRift.io. MCV (RBC) [Entitic vol] 96.4 fL Normal 80.0 - 99.0 fL [facility] CenterRift.io.; [facility], [employer]. Monocytes (Bld) [#/Vol] 0.40 {10^3/mcL} Normal 0 .09 - 1.40 {10^3/mcL} [facility] [employer] [facility], SmyrnaTrigger Finger Industries Inc.; [facility] [employer] [facility] [place], [employer]. Work Phone: Monocytes/100 WBC (Bld) 4.6 % Normal 2.0 - 13.0 % [facility] [employer] [facility], [place].; [facility] [employer] [facility], [place]. Work Phone: Neutrophils (Bld) [#/Vol] 4.50 {10^3/mcL} Normal 2.25 - 8.10 {10^3/mcL} [facility] [employer] [facility], [place].; [facility] [employer] [facility] [place], [employer]. Work Phone: Neutrophils/100 WBC (Bld) 53.5 % Normal 50.0 - 75.0 % [facility] [employer] [facility] [place].; [facility] [employer] [facility] [place]. Work Phone: Platelet mean volume (Bld) [Entitic vol] 8.1 fL Normal 6.6 - 10.5 fL [facility] [employer] [facility], [place].; [facility], [employer]. Platelets (Bld) [#/Vol] 280 {10^3/mcL} Normal 15 0 - 450 {10^3/mcL} [facility] [employer] [facility], [place].; [facility] [employer] [facility] [place], Inc. RBC (Bld) [#/Vol] 4.48 {10^6/mcL} Normal 4.10 - 5.30 {10^6/mcL} [facility] [employer] [facility] [place], Inc.; [facility] [employer] [facility] [place], [employer]. WBC (Bld) [#/Vol] 8.50 {10^3/mcL} Normal 4.50 - 10.80 {10^3/mcL} [facility] [employer] [facility], [place].; [employer] [place] [employer] [facility] [employer] [facility] [place]. No Panel Informationon 05-27 Basophil, Absolute 0.00 {10^3/mcL} Normal 0.00 - 0.27 {10^3/mcL} [facility] [employer] [facility], [place].; [employer] [place] [employer] [facility] [employer] [facility] [place], [employer]. Work Phone: Eosinophil, Absolute 0.20 {10^3/mcL} Normal 0.00 - 0.65 {10^3/mcL} [facility] [employer] [facility] [place].; [employer] [facility] [employer] [facility] [place]. Work Phone: Lymphocyte, Absolute 3.30 {10^3/mcL} Normal 0.90 - 4.32 {10^3/mcL} [facility] [employer] [facility] [place].; [employer] [facility] [employer] [facility] [place], [employer]. Work Phone: Monocyte, Absolute 0.40 {10^3/mcL} Normal 0.09 - 1.40 {10^3/mcL} [facility] [employer] [facility], [place].; [employer] [facility] [employer] [facility] [place]. Work Phone: Neutrophil, Absolute 4.50 {10^3/mcL} Normal 2.25 - 8.10 {10^3/mcL} [facility] [employer] [facility], [place].; [employer] [facility] [employer] [facility] [place], [employer]. Work Phone: 2.4 % Normal 0.0 - 6.0 % [facility] [employer] [facility] [place].; [employer] [place] [employer] [facility] [employer] [facility] [place]. Work Phone: 0.4 % Normal 0.0 - 2.5 % [facility] [employer] [facility] [employer] PhoneTell. Work Phone: Laboratory - Chemistry and C hemistry - challengeon 04-10-2018 Calcium [Mass/Vol] 9.3 mg/dL Normal 8.4 - 10. 1 mg/dL [facility] [employer].; [employer] [facility] Zimm[employer] PhoneTell. Chloride [Moles/Vol] 108 mmol/L Normal 98 - 110 meq/L [facility]; [facility] CO2 [Moles/Vol] 26 mmol/L Normal 22 - 32 meq/L [facility]; [facility] Creatinine [Mass/Vol] 1.05 mg/dL Normal 0.50 - 1.20 mg/dL [facility]; [facility] GFR/1.73 sq M.predicted among blacks MDRD (S/P/Bld) [Vol rate/Area] mL/min/{1.73_m2} Normal [facility]; [facility] Work Phone: GFR/1.73 sq M.predicted among non-blacks MDRD (S/P/Bld) [Vol rate/Area] 53 {ml/min/1.73sqm} Normal [facility]; [facility] Work Phone: Glucose [Mass/Vol] 72 mg/dL Abnormal 82 - 115 mg/dL [facility]; [facility], [facility] Potassium [Moles/Vol] 3.9 mmol/L Normal 3.5 - 5.0 meq/L [facility]; [facility] Sodium [Moles/Vol] 143 mmol/L Normal 136 - 145 meq/L [facility]; [facility] Urea nitrogen [Mass/Vol] 13.0 mg/dL Normal 8.0 - 22.0 mg/dL [facility]; [facility], [facility] Urea nitrogen/Creatinine [Mass ratio] 12.4 {ratio} Normal 10.0 - 22.0 {ratio} [facility].; [facility] HospitalTrigger Finger Industries [facility] Laboratory - Hematology and Cell countson 04-10-2018 Basophils (Bld) [#/Vol] 0.10 {10^3/mcL} Normal 0 .00 - 0.27 {10^3/mcL} [facility] CenterRift.io.; [facility]PRESBY[facility] HOSPITALFanKave [facility] SystemRift.io. Work Phone: Basophils/100 WBC (Bld) 0.7 % Normal 0.0 - 2.5 % [facility] CenterRift.io.; [facility]. Work Phone: Eosinophils (Bld) [#/Vol] 0.10 {10^3/mcL} Normal 0.00 - 0.65 {10^3/mcL} [facility] CenterRift.io.; [facility]Rift.io. Work Phone: Eosinophils/100 WBC (Bld) 1.1 % Normal 0.0 - 6.0 % [facility] CenterRift.io.; [facility]PRESBY[facility]IAN HOSPITALFanKave [facility] SystemRift.io. Work Phone: Erythrocyte distribution width (RBC) [Ratio] 13.4 % Normal 11.5 - 15.5 % [facility] CenterRift.io.; [facility] HospitalRift.io Hematocrit (Bld) [Volume fraction] 44.0 % Normal 34.0 - 46.0 % [facility] CenterRift.io.; [facility] [employer] [facility] [place] Hemoglobin (Bld) [Mass/Vol] 14.6 g/dL Normal 12.0 - 16.0 g/dL [facility] CenterRift.io.; [facility] HospitalRift.io. Lymphocytes (Bld) [#/Vol] 4.10 {10^3/mcL} Normal 0.90 - 4.32 {10^3/mcL} [facility] [employer] [facility] [place].; [employer] [facility] [employer] [facility] [place]. Work Phone: Lymphocytes/100 WBC (Bld) 34.7 % Normal 20.0 - 40.0 % [facility] [employer] [facility], [place].; [facility]-PRESBYTERIAN HOSPITALFanKave [employer] [facility] [employer] [facility] [place]. Work Phone: MCH (RBC) [Entitic mass] 31.7 pg Normal 27.0 - 33.0 pg [facility] CenterTrigger Finger Industries [facility].; [facility], [facility]. MCHC (RBC) [Mass/Vol] 33.2 g/dL Normal 32.0 - 36.0 g/dL [facility].; [facility], [facility]. MCV (RBC) [Entitic vol] 95.5 fL Normal 80.0 - 99.0 fL [facility].; [facility], [facility]. Monocytes (Bld) [#/Vol] 0.40 {10^3/mcL} Normal 0 .09 - 1.40 {10^3/mcL} [facility] CenterTrigger Finger Industries [facility].; [facility], [facility]. Work Phone: Monocytes/100 WBC (Bld) 3.3 % Normal 2.0 - 13.0 % [facility] CenterTrigger Finger Industries [facility].; [facility], [facility]. Work Phone: Neutrophils (Bld) [#/Vol] 7.20 {10^3/mcL} Normal 2.25 - 8.10 {10^3/mcL} [facility] CenterTrigger Finger Industries [facility].; [facility], [facility]. Work Phone: Neutrophils/100 WBC (Bld) 60.2 % Normal 50.0 - 75.0 % [facility] CenterTrigger Finger Industries [facility].; [facility] HospitalTrigger Finger Industries [facility]. Work Phone: Platelet mean volume (Bld) [Entitic vol] 9.0 fL Normal 6.6 - 10.5 fL [facility] CenterTrigger Finger Industries [facility].; [facility], [facility]. Platelets (Bld) [#/Vol] 279 {10^3/mcL} Normal 15 0 - 450 {10^3/mcL} [facility] CenterTrigger Finger Industries [facility].; [facility], [facility]. RBC (Bld) [#/Vol] 4.61 {10^6/mcL} Normal 4.10 - 5.30 {10^6/mcL} [facility], [place]Rift.io.; [employer] [facility] [employer]. WBC (Bld) [#/Vol] 11.90 {10^3/mcL} Abnormal 4.50 - 10.80 {10^3/mcL} [facility], SmyrnaTrigger Finger Industries Inc.; [employer] [facility] Ter[employer]. No Panel Informationon 04-10 Basophil, Absolute 0.10 {10^3/mcL} Normal 0.00 - 0.27 {10^3/mcL} [employer] [facility] [email or web address], [employer]. Work Phone: Electrolyte Balance 9.0 meq/L Normal 4.0 - 15 .0 meq/L [facility] [employer].; [employer] [facility] [email or web address], [employer]. Eosinophil, Absolute 0.10 {10^3/mcL} Normal 0.00 - 0.65 {10^3/mcL} [facility] [employer].; [employer] [place], [employer]. Work Phone: Lymphocyte, Absolute 4.10 {10^3/mcL} Normal 0.90 - 4.32 {10^3/mcL} [employer] [place], [employer]. Work Phone: Monocyte, Absolute 0.40 {10^3/mcL} Normal 0.09 - 1.40 {10^3/mcL} [employer] [facility] [email or web address], Inc. Work Phone: Neutrophil, Absolute 7.20 {10^3/mcL} Normal 2.25 - 8.10 {10^3/mcL} [facility].; [employer] [facility] [email or web address], Inc. Work Phone: 1.1 % Normal 0.0 - 6.0 % [employer] [facility] [employer]. Work Phone: [phone] 0.7 % Normal 0.0 - 2.5 % [facility] Healthcare[facility]; [facility] Work Phone: Laboratory - Chemistry and C hemistry - challengeon 03-25-2017 Anion gap [Moles/Vol] 9 mmol/L Abnormal 10 - 20 mmol/L [facility]; [facility] HospitalTrigger Finger Industries [facility] Work Phone: Calcium [Mass/Vol] 9.2 mg/dL Normal 8.6 - 10. 2 mg/dL [facility] Healthcare[facility]; [facility] Work Phone: Chloride [Moles/Vol] 106 mmol/L Normal 98 - 10 7 mmol/L [facility] Healthcare[facility]; [facility] Work Phone: CO2 [Moles/Vol] 29.7 mmol/L Normal 21.0 - 31.0 mmol/L [facility] Center[facility] F[facility] Industries [facility] HospitalG[facility]; [facility] Work Phone: Creatinine [Mass/Vol] 0.9 mg/dL Normal 0.6 - 1.2 mg/dL [facility] Healthcare[facility]; [facility] Work Phone: GFR/1.73 sq M.predicted among blacks MDRD (S/P/Bld) [Vol rate/Area] mL/min/{1.73_m2} Normal 60 - 999 {ML/MINUTE} [facility] Center[facility] Finger Industries [facility].; [facility] F[facility] Industries [facility] Work Phone: GFR/1.73 sq M.predicted MDRD (S/P/Bld) [Vol rate/Area] mL/min/{1.73_m2} Normal 60 - 999 {ML/MINUTE} [facility] CenterSelecta Biosciences; [facility]. Work Phone: Glucose [Mass/Vol] 111 mg/dL Abnormal 74 - 106 mg/dL [facility] Hospital[facility] Finger Industries [facility].; [facility], [facility] Work Phone: Potassium [Moles/Vol] 3.9 mmol/L Normal 3.5 - 5.1 mmol/L [facility].; [facility], [facility]. Work Phone: Sodium [Moles/Vol] 141 mmol/L Normal 136 - 145 mmol/L [facility].; [facility] HospitalTrigger Finger Industries [facility]. Work Phone: Urea nitrogen [Mass/Vol] 16 mg/dL Normal 6 - 20 mg/dL [facility].; [facility], [employer]. Work Phone: No Panel Informationon 03-25 AGE 61 {years} Normal [facility] CenterTrigger Finger Industries [facility].; [facility], [facility]. Work Phone: BMP with eGFR Normal [facility].; [facility], [facility]. Work Phone: 9 mmol/L Abnormal 10 - 20 mmol/L [facility].; [facility], Inc. Work Phone: 61 {years} Normal [facility].; [facility], [facility] Work Phone: Laboratory - Chemistry and C hemistry - challengeon 03-21-2017 Bilirubin Ql (U) Negative Normal [facility].; [facility], Inc[facility] Ketones Ql (U) Negative Normal [facility].; [facility], Inc. pH (U) 6.0 [pH] Normal [facility] CenterTrigger Finger Industries [facility].; [facility], Inc[facility] Specific gravity (U) [Rel density] 1.025 Normal [facility], Inc.; [facility], Inc[facility] Laboratory - Hematology and Cell countson 03-21-2017 Hemoglobin Ql (U) Negative Normal [facility], [facility].; [facility], Inc[facility] Laboratory - Specimen inform ationon 03-21-2017 Appearance (U) CLEAR Normal [facility], [facility].; [facility], Inc[facility] Color (U) YELLOW Normal [facility], Inc.; [facility], Inc[facility] Laboratory - Urinalysison Glucose Test strip (U) [Mass/Vol] Negative Normal [facility], Inc.; [facility], Inc. Leukocyte esterase Test strip Ql (U) 1+ Abnormal [facility], Inc.; [facility], Inc[facility] Nitrite Ql (U) Negative Normal [facility], [facility].; [facility], [facility] Protein Ql (U) Negative Normal [facility], Inc.; [facility], Inc. No Panel Informationon 03-21 UA - ODOR Negative Normal [facility], Inc.; [facility], Inc[facility] UA - UROBILIGEN 4 Normal [facility], Inc.; [facility], Inc. 4 Normal [facility], Inc.; [facility], Inc. Negative Normal [facility], Inc.; [facility], [facility] Laboratory - Chemistry and C hemistry - challengeon 03-10-2017 Bilirubin [Mass/Vol] Negative Normal [facility], Inc.; [facility], [facility] Work Phone: Glucose [Mass/Vol] NORM Normal [facility], Inc.; [facility], Inc. Work Phone: pH (Bld) 5 [pH] Normal [facility].; [employer] [facility] [employer] [facility] [email or web address]. Work Phone: Protein [Mass/Vol] 15 g/dL Abnormal [facility] [employer] [facility] [place].; [employer] [facility] [employer] [facility], [place]. Work Phone: Laboratory - Hematology and Cell countson 03-10-2017 WBC (Bld) [#/Vol] 100 10*3/uL Abnormal [facility] [employer] [facility] [place].; [employer] [facility] [employer] [facility], [place]. Work Phone: Laboratory - Microbiology an d Antimicrobial susceptibilityon 03-10-2017 Bacteria identified Cx Nom (Unsp spec) 1+ Normal [facility] HospitalKrave-N [facility], [place].; [employer] [place] [employer] [facility] PhoneTell. Work Phone: Laboratory - Specimen inform ationon 03-10-2017 Clarity (U) clear Normal [facility] [employer]; [employer] [facility] [employer] [facility] [email or web address]. Work Phone: Color (U) rica Normal [facility] HospitalRecon Instruments; [employer] [facility] [employer] [facility], [email or web address]. Work Phone: Specimen type Nom (Spec) Void Normal [facility] [employer]Tell.; [employer] [facility] [employer] [facility], [place]. Work Phone: Laboratory - Urinalysison Crystals LM Nom (Urine sed) NONE Normal [facility] [employer] [facility] [place].; [employer] [facility] PhoneTell. Work Phone: Nitrite Ql (U) Negative Normal [facility] [employer] [facility] [place].; [employer] [facility] [employer] [facility], [place]. Work Phone: Yeast LM Ql (Urine sed) NONE Normal [facility] HospitalK[facility]-N [facility] [place].; [employer] [facility] PhoneTell. Work Phone: No Panel Informationon 03-10 Amorphous NONE Normal [employer] [facility], SmyrnaTrigger Finger Industries Inc.; [employer] Operation and MaintenanceEK [facility] [employer] [facility] [place], Inc. Work Phone: Blood 10 Abnormal [employer] [facility], [place].; [employer] MaintenanceEK - [facility] [employer] [facility] [place], Inc. Work Phone: Casts NONE Normal [facility] [employer] [facility] [place], Inc.; [employer] MaintenanceEK - [facility] [employer] [facility] [place], Inc. Work Phone: Epi Cells FEW Normal [facility] [employer] [facility] [place], Inc.; [employer] MaintenanceEK - [facility] [employer] [facility] [place], Inc. Work Phone: Ketone Negative Normal [employer] [facility] [place].; [employer] [facility] [employer] [facility] [place], Inc. Work Phone: Microscopic SEE BELOW Normal [facility] [employer] [facility] [place], Inc.; [employer] MaintenanceEK [employer], Inc. Work Phone: Mucous NONE Normal [employer] [facility], SmyrnaTrigger Finger Industries Inc.; WALLoci ControlsEK - [facility] [email or web address], Inc. Work Phone: Rbc NONE Normal 0 - 3 [employer] Inc.; [employer], Inc. Work Phone: Sp [place] 1.025 Normal [facility] [employer] [facility] [place].; [employer], Inc. Work Phone: Urobilinog 4 Abnormal [employer].; [employer], Inc. Work Phone: Wbc 6-10 Normal 0 - 5 [employer].; [employer], Inc. Work Phone: Void Normal [employer].; [employer] MaintenanceEK - [facility], Inc. Work Phone: rica Normal [employer] [facility], SmyrnaTrigger Finger Industries Inc.; [employer], Inc. Work Phone: clear Normal [place] [employer] [facility] [place], Inc.; GIDEON - [facility], Inc. Work Phone: 5 Normal [facility], Inc.; GIDEON - [facility], Inc. Work Phone: 15 Abnormal [facility], Inc.; GIDEON - [facility], Inc. Work Phone: Negative Normal [facility], Inc.; [facility], Inc. Work Phone: 10 Abnormal [facility], Inc.; GIDEON - [facility], Inc. Work Phone: 4 Abnormal [facility], Inc.; GIDEON - [facility], Inc. Work Phone: 1.025 Normal [facility], Inc.; GIDEON - [facility], Inc. Work Phone: 100 Abnormal [facility], Inc.; GIDEON - [facility], Inc. Work Phone: SEE BELOW Normal [facility] [employer] [facility] [place], Inc.; GIDEON - [facility], Inc. Work Phone: 6-10 Normal 0 - 5 [facility] HospitalKrave-N [facility] [place], Inc.; GIDEON - [facility], Inc. Work Phone: NONE Normal [facility], Inc.; GIDEON - [facility], Inc. Work Phone: 1+ Normal [facility], Inc.; GIDEON - [facility], Inc. Work Phone: FEW Normal [facility] [employer] [facility] [place], Inc.; Sher[facility]RENOWN [facility] - [facility], Inc. Work Phone: No Panel Informationon 03-09 Pathology Surgical SEE BELOW Normal [facility] [employer] [facility]; [facility] SEE BELOW Normal [facility]; [facility] Laboratory - Chemistry and C hemistry - challengeon 11-17-2015 Anion gap [Moles/Vol] 13 mmol/L Normal 10 - 20 mmol/L [facility]; [facility] Calcium [Mass/Vol] 9.3 mg/dL Normal 8.6 - 10. 2 mg/dL [facility]; [facility] Chloride [Moles/Vol] 105 mmol/L Normal 98 - 10 7 mmol/L [facility]; [facility], [facility], Inc. CO2 [Moles/Vol] 25.0 mmol/L Normal 21.0 - 31.0 mmol/L [facility]; [facility], [facility], Inc. Creatinine [Mass/Vol] 0.9 mg/dL Normal 0.6 - 1.2 mg/dL [facility]; [facility], [facility], Inc. GFR/1.73 sq M.predicted among blacks MDRD (S/P/Bld) [Vol rate/Area] mL/min/{1.73_m2} Normal 60 - 999 {ML/MINUTE} [facility].; [facility], [facility], Inc. GFR/1.73 sq M.predicted MDRD (S/P/Bld) [Vol rate/Area] mL/min/{1.73_m2} Normal 60 - 999 {ML/MINUTE} [facility].; [facility], [facility], Inc. Glucose [Mass/Vol] 84 mg/dL Normal 74 - 106 mg/dL [facility]; [facility], [facility], Inc. Potassium [Moles/Vol] 4.0 mmol/L Normal 3.5 - 5.1 mmol/L [facility]; [facility], [facility], Inc. Sodium [Moles/Vol] 139 mmol/L Normal 136 - 145 mmol/L [facility]; [facility] Urate [Mass/Vol] 6.5 mg/dL Normal 2.3 - 6.6 mg/dL [facility]; [facility] Urea nitrogen [Mass/Vol] 14 mg/dL Normal 6 - 20 mg/dL [facility]; [facility] Laboratory - Hematology and Cell countson 11-17-2015 Basophils (Bld) [#/Vol] 0.10 {x10EE3/UL} Normal 0.00 - 0.10 {x10EE3/UL} [facility]; [facility] Basophils/100 WBC (Bld) 1.4 % Normal 0.0 - 2.0 % [facility]; [facility] CBC panel Auto (Bld) Normal [facility]; [facility] Eosinophils (Bld) [#/Vol] 0.20 {x10EE3/UL} Normal 0.00 - 0.50 {x10EE3/UL} [facility]; [facility] Eosinophils/100 WBC (Bld) 2.0 % Normal 0.0 - 7.0 % [facility]; [facility] Erythrocyte distribution width (RBC) [Ratio] 13.4 % Normal 12.0 - 15.6 % [facility]; [facility], [facility], Inc. Hematocrit (Bld) [Volume fraction] 44.8 % Normal 34.0 - 46.0 % [facility]; [facility] Hemoglobin (Bld) [Mass/Vol] 15.4 g/dL Normal 12.0 - 16.0 g/dL [facility]; [place] [employer] - [facility], Inc. Lymphocytes (Bld) [#/Vol] 3.40 {x10EE3/UL} Abnormal 0.80 - 2.80 {x10EE3/UL} [facility], [facility].; [facility], [facility]. Lymphocytes/100 WBC (Bld) 37.9 % Normal 20.0 - 45.0 % [facility], Inc.; [facility], Inc. MCH (RBC) [Entitic mass] 32 pg Normal 27 - 33 pg [facility], [facility].; [facility], Inc. MCHC (RBC) [Mass/Vol] 34 {X10_3} Normal 32 - 3 6 {X10_3} [facility], [facility].; [facility], Inc. MCV (RBC) [Entitic vol] 94 fL Normal 80 - 99 fL E [facility], [facility].; [facility], [facility]. Monocytes (Bld) [#/Vol] 0.60 {x10EE3/UL} Normal 0.20 - 1.00 {x10EE3/UL} [facility], [facility].; [facility], [facility]. Monocytes/100 WBC (Bld) 6.6 % Normal 0.0 - 10.0 % [facility], [facility].; [facility], [facility]. Morphology Pollo (Bld) [Interp] N/A Normal [facility] CenterTrigger Finger Industries [facility].; [facility], [facility]. Neutrophils (Bld) [#/Vol] 4.70 {x10EE3/UL} Normal 1.50 - 7.10 {x10EE3/UL} [facility], [facility].; [facility], Inc. Neutrophils/100 WBC (Bld) 52.1 % Normal 46.0 - 76.0 % [facility], [facility].; [facility], Inc. Platelet mean volume (Bld) [Entitic vol] 9.0 fL Normal 6.6 - 10.5 fL [facility], [facility].; [facility], [facility], Inc. Platelets (Bld) [#/Vol] 260 {x10EE3/UL} Normal 1 50 - 450 {x10EE3/UL} [facility], [facility].; [facility], [facility]. RBC (Bld) [#/Vol] 4.77 {x_10EE6/UL} Normal 4.10 - 5.30 {x_10EE6/UL} [facility], [facility].; [facility], [facility]. WBC (Bld) [#/Vol] 9.1 {x_10EE3/UL} Normal 4.5 - 10.8 {x_10EE3/UL} [facility], [facility].; [facility], [facility]. No Panel Informationon 11-16 AGE 60 {years} Normal [facility].; [facility], [facility], Inc. BMP with eGFR Normal [facility].; [facility], [facility]. MANUAL DIFF N/A Normal [facility].; [facility], [facility]. 13 mmol/L Normal 10 - 20 mmol/L [facility].; [facility], Inc. 60 {years} Normal [facility].; [facility], [facility]. N/A Normal [facility].; [facility], [facility]. Laboratory - Chemistry and C hemistry - challengeon 07-09-2013 Bilirubin Ql (U) Negative Normal [facility], [facility].; [facility], [facility]. Cholesterol [Mass/Vol] 201 mg/dL Abnormal 50 - 199 mg/d L [facility], [facility].; [facility], Inc. Cholesterol in HDL [Mass/Vol] 50 mg/dL Normal 40 - 59 mg/dL [facility], [facility].; [facility], Inc. Cholesterol in LDL [Mass/Vol] 120 mg/dL Normal 0 - 129 mg/dL [facility].; [facility] Ketones Ql (U) Negative Normal [facility]; [facility] pH (U) 5.0 [pH] Normal [facility]; [facility] Specific gravity (U) [Rel density] 1.[address] [facility]; [facility] Triglyceride [Mass/Vol] 157 mg/dL Abnormal 3 - 149 mg/d L [facility]; [facility] Laboratory - Hematology and Cell countson 07-09-2013 Basophils/100 WBC (Bld) 1.3 % Normal 0.0 - 2.5 % [facility]; [facility] Eosinophils/100 WBC (Bld) 2.4 % Normal 0.0 - 6.0 % [facility]; [facility] Erythrocyte distribution width (RBC) [Ratio] 13.3 % Normal 11.5 - 15.5 % [facility]; [facility] Hematocrit (Bld) [Volume fraction] 42.9 % Normal 34.0 - 46.0 % [facility]; [facility] Hemoglobin (Bld) [Mass/Vol] 14.9 g/dL Normal 12.0 - 16.0 g/dL [facility]; [facility], [facility], Inc[facility] Hemoglobin Ql (U) Negative Normal [facility]; [facility] Lymphocytes/100 WBC (Bld) 40.3 % Abnormal 20.0 - 40.0 % [facility]; [facility] MCH (RBC) [Entitic mass] 33.0 pg Normal 27.0 - 33.0 pg [facility].; [facility], [facility], Inc[facility] MCHC (RBC) [Mass/Vol] 34.7 g/dL Normal 32.0 - 36.0 g/dL [facility], [facility].; [facility], Inc. MCV (RBC) [Entitic vol] 95.3 fL Normal 80.0 - 99.0 fL [facility], [facility].; [facility], [facility]. Monocytes/100 WBC (Bld) 4.7 % Normal 2.0 - 13.0 % [facility], Inc.; [facility], Inc. Neutrophils (Bld) [#/Vol] 3.50 {10_3/mcL} Normal 1.90 - 7.90 {10_3/mcL} [facility], Inc.; [facility], Inc. Neutrophils/100 WBC (Bld) 51.3 % Normal 50.0 - 75.0 % [facility], [facility].; [facility], Inc. Platelet mean volume (Bld) [Entitic vol] 8.4 fL Normal 6.6 - 10.5 fL [facility], [facility].; [facility], Inc. Platelets (Bld) [#/Vol] 273 {10_3/mcL} Normal 15 0 - 450 {10_3/mcL} [facility], Inc.; [facility], Inc. RBC (Bld) [#/Vol] 4.50 {10_6/mcL} Normal 4.10 - 5.30 {10_6/mcL} [facility], Inc.; [facility], Inc. WBC (Bld) [#/Vol] 6.80 {10_3/mcL} Normal 4.50 - 10.80 {10_3/mcL} [facility], Inc.; BAIRD - [facility], Inc. Laboratory - Specimen inform ationon 07-09-2013 Appearance (U) CLEAR Normal [facility]PeakDeaconess Incarnate Word Health SystemRift.io.; [facility], Inc. Color (U) YELLOW Normal [facility] [employer] [facility] [place].; [facility], Inc. Laboratory - Urinalysison Glucose Test strip (U) [Mass/Vol] Negative Normal [facility] [email or web address].; [facility], [facility]. Leukocyte esterase Test strip Ql (U) Negative Normal [facility].; [facility], [facility]. Nitrite Ql (U) Negative Normal [facility].; [facility], Inc. Protein Ql (U) Negative Normal [facility], [facility].; [facility], [facility]. No Panel Informationon 07-09 UA - ODOR Negative Normal [facility].; [facility], [facility]. UA - UROBILIGEN 0.2 Normal [facility].; [facility], [facility]. 201 mg/dL Abnormal 50 - 199 mg/dL [facility].; [facility], [facility]. 50 mg/dL Normal 40 - 59 mg/dL [facility].; [facility], [facility]. 0.2 Normal [facility].; [facility], [facility]. Negative Normal [facility] CenterTrigger Finger Industries [facility].; [facility], [facility]. Laboratory - Chemistry and C hemistry - challengeon 02-23-2013 Calcium [Mass/Vol] 9.4 mg/dL Normal 8.4 - 10. 1 mg/dL [facility].; [facility], [facility]. Chloride [Moles/Vol] 108 mmol/L Normal 98 - 110 meq/L [facility].; [facility], [facility]. CO2 [Moles/Vol] 29 mmol/L Normal 22 - 32 meq/L [facility]; [facility], [facility]. Creatinine [Mass/Vol] 0.91 mg/dL Normal 0.50 - 1.20 mg/dL [facility] Center[facility] Finger Industries [facility].; [facility], [facility]. GFR/1.73 sq M.predicted among blacks MDRD (S/P/Bld) [Vol rate/Area] mL/min/{1.73_m2} Normal [facility].; [facility] Work Phone: GFR/1.73 sq M.predicted among non-blacks MDRD (S/P/Bld) [Vol rate/Area] mL/min/{1.73_m2} Normal [facility]; [facility] Work Phone: Glucose [Mass/Vol] 92 mg/dL Normal 70 - 110 mg/dL [facility]; [facility] Potassium [Moles/Vol] 4.4 mmol/L Normal 3.5 - 5.0 meq/L [facility]; [facility] Sodium [Moles/Vol] 142 mmol/L Normal 136 - 145 meq/L [facility]; [facility], [facility] Urea nitrogen [Mass/Vol] 13.0 mg/dL Normal 8.0 - 22.0 mg/dL [facility]; [facility] Urea nitrogen/Creatinine [Mass ratio] 14.3 mg/mg Normal 10.0 - 22.0 [facility]; [facility], [facility] No Panel Informationon 02-23 Electrolyte Balance 5.0 meq/L Normal 4.0 - 15 .0 meq/L [facility]; [facility], [facility] No Panel Informationon 03-09 Pathology Surgical SEE BELOW Normal [facility].; [facility] SEE BELOW Normal [facility].; [facility], [facility] Vital Signs Date Time Vital Sign Value Performing Clinician Facility 07-01-2024 13:27-0400 Body height 162.[address] Yousif Morgan MD Work Phone: [facility] 06-18-2024 12:52-0400 Body mass index (BMI) [Ratio] 27.1 kg/m2 Dr. Yousif Morgan MD Work Phone: [facility] 06-18-2024 12:52-0400 Body weight 71.[address] Yousif Morgan MD Work Phone: [facility] 06-18-2024 12:52-0400 Diastolic blood pressure 84 mm[Hg] Dr. Yousif Morgan MD Work Phone: [facility] 06-18-2024 12:52-0400 Heart rate 60 /min Dr. Yousif Morgan MD Work Phone: [facility] 06-18-2024 12:52-0400 Respiratory rate 16 /min Dr. Yousif Morgan MD Work Phone: [facility] 06-18-2024 12:52-0400 Systolic blood pressure 151 mm[Hg] Dr. Yousif Morgan MD Work Phone: [facility] 06-18-2024 10:33-0400 Body height 162.56 cm CHRISTINA GRATE EDVIN [facility], [facility].; [facility], [facility]. 06-18-2024 10:33-0400 Diastolic blood pressure 85 mm[Hg] CHRISTINA GRATE EDVIN [facility], [facility].; [facility], [facility]. 06-18-2024 10:33-0400 Heart rate 61 /min CHRISTINA GRATE EDVIN [facility], [facility].; [facility], [facility]. 06-18-2024 10:33-0400 Systolic blood pressure 144 mm[Hg] CHRISTINA GRATE EDVIN [facility], [facility].; [facility], [facility] 03-05-2024 14:38-0500 Body height 162.56 cm Reta [facility], [facility].; [facility], [facility]. 03-05-2024 14:38-0500 Body mass index (BMI) [Ratio] 27.29 kg/m2 [facility], [facility].; [facility], Inc[facility] 03-05-2024 14:38-0500 Body surface area Derived from formula 1.77 m2 Reta Vargas RMA [facility] CenterRift[facility].; [facility], Inc[facility] 03-05-2024 14:38-0500 Body temperature 97.3 [degF] Reta SABILLON [facility], [facility].; [facility], Inc[facility] Comment on above: Method: Oral 03-05-2024 14:38-0500 Body weight 72.12 kg Reta SABILLON [facility], [employer].; [facility], Inc[facility] 03-05-2024 14:38-0500 Diastolic blood pressure 86 mm[Hg] Reta SABILLON [facility] Center[facility] Industries Inc.; [facility], Inc. Comment on above: Patient Position: Sitting; Cuff Location : Left Arm; Cuff Size: Standard 03-05-2024 14:38-0500 Heart rate 66 /min Reta Vargas Aramis [facility] CenterR[facility].; [facility], Inc. Comment on above: Pattern: Regular 03-05-2024 14:38-0500 Inhaled oxygen concentration 21 % Reta Vargas [facility].; [facility], [employer]. Comment on above: Room air 03-05-2024 14:38-0500 SaO2% (BldA) [Mass fraction] 97 % Reta Vargas [facility], [employer].; [facility], Inc. 03-05-2024 14:38-0500 Systolic blood pressure 143 mm[Hg] Reta SABILLON [facility] Center[facility].; [facility]ITALFanK[facility] [employer] [employer] [facility] [employer] [facility], [employer]. Comment on above: Patient Position: Sitting; Cuff Location : Left Arm; Cuff Size: Standard 02-20-2024 11:27-0500 Body height 162.56 cm Kendy Juarez [facility], [employer].; [facility] HOSPITALFanK[facility], [employer]. 02-20-2024 11:27-0500 Body mass index (BMI) [Ratio] 27.64 kg/m2 Kendy Larry [facility], Inc.; [facility], [facility]. 02-20-2024 11:27-0500 Body surface area Derived from formula 1.78 m2 Kendy Juarez [facility], [facility].; [facility], Inc. 02-20-2024 11:27-0500 Body weight 73.03 kg Kendy Juarez [facility], Inc.; [facility], Inc[facility] 02-20-2024 11:27-0500 Diastolic blood pressure 80 mm[Hg] Kendy Juarez [facility], Inc.; [facility], Inc. Comment on above: Patient Position: Sitting; Cuff Location : Left Arm; Cuff Size: Standard 02-20-2024 11:27-0500 Heart rate 67 /min Kendy Juarez [facility], Inc.; [facility], Inc. Comment on above: Pattern: Regular 02-20-2024 11:27-0500 Systolic blood pressure 134 mm[Hg] Kendy Juarez [facility], Inc.; [facility], Inc. Comment on above: Patient Position: Sitting; Cuff Location : Left Arm; Cuff Size: Standard 08-08-2023 10:07-0400 Body height 161.29 cm CHRISTINA GRATE EDVIN [facility], Inc.; [facility], [facility]. 08-08-2023 10:07-0400 Body mass index (BMI) [Ratio] 27.03 kg/m2 CHRISTINA GRATE EDVIN [facility], [facility].; [facility], [facility]. 08-08-2023 10:07-0400 Body surface area Derived from formula 1.75 m2 CHRISTINA GRATE EDVIN [facility], [facility].; [facility], [facility]. 08-08-2023 10:07-0400 Body weight 70.31 kg CHRISTINA GRATE EDVIN [facility], [facility].; [facility], [facility]. 08-08-2023 10:07-0400 Diastolic blood pressure 70 mm[Hg] CHRISTINA GRATE EDVIN [facility], Inc.; [facility], Inc. Comment on above: Patient Position: Sitting; Cuff Location : Left Arm; Cuff Size: Standard 08-08-2023 [id number]:[id number] Heart rate 60 /min CHRISTINA MAYER [facility], Inc.; [facility], [employer]. Comment on above: Pattern: Regular 08-08-2023 10:07-0400 Systolic blood pressure 107 mm[Hg] CHRISTINA GRATE EDVIN [facility], Inc.; [facility], Inc. Comment on above: Patient Position: Sitting; Cuff Location : Left Arm; Cuff Size: Standard 03-28-2023 10:27050 Body height 161.29 cm CHRISTINA MAYER RN [facility], Inc.; [facility], Inc. 03-28-2023 10:27-0500 Body mass index (BMI) [Ratio] 27.81 kg/m2 CHRISTINA MAYER [facility], [facility].; [facility], Inc. 03-28-2023 10:27-050 Body surface area Derived from formula 1.77 m2 CHRISTINA MAYER [facility], [facility].; [facility], Inc. 03-28-2023 10:270500 Body weight 72.35 kg CHRISTINA MAYER [facility], [facility].; [facility], [facility]. 03-28-2023 10:27-0500 Diastolic blood pressure 63 mm[Hg] CHRISTINA GRATE EDVIN [facility], [facility].; [facility], [employer]. Comment on above: Patient Position: Sitting; Cuff Location : Left Arm; Cuff Size: Standard 03-28-2023 10:27-0500 Heart rate 66 /min CHRISTINA MAYER [facility], Inc.; [facility], Inc. Comment on above: Pattern: Regular 03-28-2023 10:27-0500 Systolic blood pressure 112 mm[Hg] CHRISTINA MAYER RN [facility].; [facility] HospitalTrigger [facility] Industries [facility]. Comment on above: Patient Position: Sitting; Cuff Location : Left Arm; Cuff Size: Standard 01-31-2023 10:49-0500 Body height 162.[address] Yousif Morgan Work Phone: [facility] 01-31-2023 10:49-0500 Body mass index (BMI) [Ratio] 26.9 kg/m2 Dr. Yousif Morgan Work Phone: [facility] 01-31-2023 10:49-0500 Body weight 71.[address] Yousif Morgan Work Phone: [facility] 01-31-2023 10:49-0500 Diastolic blood pressure 82 mm[Hg] Dr. Yousif Morgan Work Phone: [facility] 01-31-2023 10:49-0500 Heart rate 56 /min Dr. Yousif Morgan Work Phone: [facility] 01-31-2023 10:49-0500 Respiratory rate 16 /min Dr. Yousif Morgan Work Phone: [facility] 01-31-2023 10:49-0500 Systolic blood pressure 144 mm[Hg] Dr. Yousif Morgan Work Phone: [facility] 11-22-2022 10:31-0400 Body height 162.56 cm Tabitha Overholt [facility], [facility].; [facility]. 11-22-2022 10:31-0400 Body mass index (BMI) [Ratio] 27.03 kg/m2 Tabitha Overholt [facility].; [facility]. 11-22-2022 10:31-0400 Body surface area Derived from formula 1.77 m2 Tabitha Overholt [facility], [facility].; [facility], [facility]. 11-22-2022 10:31-0400 Body weight 71.44 kg Tabitha Overholt [facility], Inc.; [facility], [facility]. 11-22-2022 10:31-0400 Diastolic blood pressure 62 mm[Hg] Tabitha Overholt [facility], Inc.; [facility], Inc. Comment on above: Patient Position: Sitting; Cuff Location : Left Arm; Cuff Size: Standard 11-22-2022 10:31-0400 Heart rate 60 /min Parmele Overholt [facility], Inc.; [facility], Inc. Comment on above: Pattern: Regular 11-22-2022 10:31-0400 Systolic blood pressure 93 mm[Hg] Tabitha Overholt [facility], Inc.; [facility], [facility]. Comment on above: Patient Position: Sitting; Cuff Location : Left Arm; Cuff Size: Standard 11-11-2022 00:44-0400 Body weight 71.89 kg [facility] 10-17-2022 10:25-0400 Body height 162.[address] Yousif Morgan Work Phone: [facility] 10-17-2022 10:25-0400 Body weight 71.[address] Yousif Morgan Work Phone: [facility] 09-14-2022 07:20-0400 Body height 162.[address] Yousif Morgan Work Phone: [facility] 09-14-2022 07:20-0400 Body weight 70.[address] Yousif Morgan Work Phone: [facility] 08-15-2022 15:15-0400 Body height 162.[address] Yousif Morgan Work Phone: [facility] 08-15-2022 15:15-0400 Body weight 69.[address] Yousif Morgan Work Phone: [facility] 08-15-2022 14:35-0400 Body mass index (BMI) [Ratio] 26.2 kg/m2 Dr. Yousif Morgan Work Phone: [facility] 08-15-2022 14:35-0400 Diastolic blood pressure 77 mm[Hg] Dr. Yousif Morgan Work Phone: [facility] 08-15-2022 14:35-0400 Heart rate 66 /min Dr. Yousif Morgan Work Phone: [facility] 08-15-2022 14:35-0400 Systolic blood pressure 113 mm[Hg] Dr. Yousif Morgan Work Phone: [facility] 07-19-2022 13:34-0400 Body height 162.56 cm Tabitha Overholt [facility], Inc.; [facility]ITALFanK[facility] [employer] [facility], Inc. 07-19-2022 13:34-0400 Body mass index (BMI) [Ratio] 26.43 kg/m2 Tabitha Overholt [facility] [employer] [facility], Inc.; [facility] [employer] [facility], Inc. 07-19-2022 13:34-0400 Body surface area Derived from formula 1.75 m2 Tabitha Overholt [facility] [employer] [facility], Inc.; [facility] [employer] [facility], Inc. 07-19-2022 13:34-0400 Body weight 69.85 kg Tabitha Overholt [facility], Inc.; [facility] [employer] [facility], Inc. 07-19-2022 13:34-0400 Diastolic blood pressure 76 mm[Hg] Tabitha Overholt [facility] [employer] [facility], Inc.; [facility]ITALFanK[facility] [employer] [facility], Inc. Comment on above: Patient Position: Sitting; Cuff Location : Left Arm; Cuff Size: Standard 07-19-2022 13:34-0400 Heart rate 65 /min Tabitha Overholt [facility] CenterKrave-N [facility], Inc.; [employer] MaintenanceLake Charles Memorial HospitalKrave-N [facility], Inc. Comment on above: Pattern: Regular 07-19-2022 13:34-0400 Systolic blood pressure 118 mm[Hg] Tabitha Overholt [facility] CenterKrave-N [facility], Inc.; [facility]. Comment on above: Patient Position: Sitting; Cuff Location : Left Arm; Cuff Size: Standard 07-17-2022 10:26-0400 Body mass index (BMI) [Ratio] 26.2 kg/m2 Dr. Yousif Morgan Work Phone: [facility] 07-17-2022 10:26-0400 Body weight 69.[address] Yousif Morgan Work Phone: [facility] 07-17-2022 10:26-0400 Diastolic blood pressure 77 mm[Hg] Dr. Yousif Morgan Work Phone: [facility] 07-17-2022 10:26-0400 Heart rate 66 /min Dr. Yousif Morgan Work Phone: [facility] 07-17-2022 10:26-0400 Respiratory rate 18 /min Dr. Yousif Morgan Work Phone: [facility] 07-17-2022 10:26-0400 SaO2% (BldA) [Mass fraction] 99 % Dr. Yousif Morgan Work Phone: [facility] 07-17-2022 10:26-0400 Systolic blood pressure 113 mm[Hg] Dr. Yousif Morgan Work Phone: [facility] 07-07-2022 08:18-0400 Body temperature 97.3 [degF] Qamar Pichardo MD Work Phone: [facility] 07-07-2022 08:18-0400 Diastolic blood pressure 59 mm[Hg] Qamar Pichardo MD Work Phone: [facility] 07-07-2022 08:18-0400 Heart rate 64 /min Qamar Pichardo MD Work Phone: [facility] 07-07-2022 08:18-0400 Respiratory rate 16 /min Qamar Pichardo MD Work Phone: [facility] 07-07-2022 08:18-0400 SaO2% (BldA) [Mass fraction] 98 % Qamar Pichardo MD Work Phone: [facility] 07-07-2022 08:18-0400 Systolic blood pressure 122 mm[Hg] Qamar Pichardo MD Work Phone: [facility] 07-06-2022 12:10-0400 Body temperature 97.1 [degF] Dr. Yousif Morgan Work Phone: [facility] 07-06-2022 12:10-0400 Diastolic blood pressure 79 mm[Hg] Dr. Yousif Morgan Work Phone: [facility] 07-06-2022 12:10-0400 Heart rate 65 /min Dr. Yousif Morgan Work Phone: [facility] 07-06-2022 12:10-0400 Respiratory rate 16 /min Dr. Yousif Morgan Work Phone: [facility] 07-06-2022 12:10-0400 SaO2% (BldA) [Mass fraction] 99 % Dr. Yousif Morgan Work Phone: [facility] 07-06-2022 12:10-0400 Systolic blood pressure 137 mm[Hg] Dr. Yousif Morgan Work Phone: [facility] 07-06-2022 04:25-0400 Body mass index (BMI) [Ratio] 26.1 kg/m2 Dr. Yousif Morgan Work Phone: [facility] 07-06-2022 04:25-0400 Body weight 68.[address] Yousif Morgan Work Phone: [facility] 07-05-2022 10:45-0400 Body height 162.56 cm Tabitha Overholt [facility].; [facility]. 07-05-2022 10:45-0400 Body mass index (BMI) [Ratio] 27.29 kg/m2 Tabitha Overholt [facility].; [facility]. 07-05-2022 10:45-0400 Body surface area Derived from formula 1.77 m2 [facility] 07-05-2022 10:45-0400 Body weight 72.12 kg [facility].; [facility] 07-05-2022 10:45-0400 Diastolic blood pressure 91 mm[Hg] Tabitha Overholt [facility].; [facility], [facility]. Comment on above: Patient Position: Sitting; Cuff Location : Left Arm; Cuff Size: Standard 07-05-2022 10:45-0400 Heart rate 78 /min [facility].; [facility], Inc[facility] Comment on above: Pattern: Regular 07-05-2022 10:45-0400 Inhaled oxygen concentration 21 % Critical access hospital; [facility], [facility]. Comment on above: Room air 07-05-2022 10:45-0400 SaO2% (BldA) [Mass fraction] 97 % Critical access hospital; [facility], [facility]. 07-05-2022 10:45-0400 Systolic blood pressure 157 mm[Hg] [facility].; [facility] HospitalTrigger Finger Industries [facility]. Comment on above: Patient Position: Sitting; Cuff Location : Left Arm; Cuff Size: Standard 03-08-2022 09:36-0500 Body height 162.56 cm Kan MORGAN MD Work Phone: [facility] Center[facility].; [facility] Hospital[facility] Industries [facility] Inc[facility] 03-08-2022 09:36-0500 Body mass index (BMI) [Ratio] 25.58 kg/m2 Kan MORGAN MD Work Phone: [facility] Center[facility] Industries [facility] Inc.; [facility] [employer] [facility]na[facility] 03-08-2022 09:36-0500 Body surface area Derived from formula 1.73 m2 Kan MORGAN MD Work Phone: [facility] CenterSelect[facility] Biosciences; [employer] [facility] [employer] [facility] 03-08-2022 09:36-0500 Body weight 67.59 kg Kan MORGAN MD Work Phone: [facility] HospitalKrave-N [facility]naR[facility].; [employer] [facility] [employer] 03-08-2022 09:36-0500 Diastolic blood pressure 89 mm[Hg] Kan MORGAN MD Work Phone: [facility] [employer] [facility]naSelect[facility] [employer]; [employer] [facility] [employer] Comment on above: Patient Position: Sitting; Cuff Location : Left Arm; Cuff Size: Standard 03-08-2022 09:36-0500 Heart rate 75 /min Kan MORGAN MD Work Phone: [facility] [employer] [facility] S[facility]naR[facility].; [employer] [facility] [employer] [place] Comment on above: Pattern: Regular 03-08-2022 09:36-0500 Systolic blood pressure 139 mm[Hg] Kan MORGAN MD Work Phone: [facility] [employer] [facility]naR[facility].; [employer] [facility] [employer] [place] Comment on above: Patient Position: Sitting; Cuff Location : Left Arm; Cuff Size: Standard 01-18-2022 15:07-0500 Body height 163.19 cm Kan MORGAN MD Work Phone: [facility] [employer] [facility]naR[facility].; [employer] [facility] [employer] [place] 01-18-2022 15:07-0500 Body mass index (BMI) [Ratio] 25.92 kg/m2 Kan MORGAN MD Work Phone: [facility] [employer] [facility].; [employer] [facility] [employer] [facility]na[facility] 01-18-2022 15:07-0500 Body surface area Derived from formula 1.75 m2 Kan MORGAN MD Work Phone: [employer] [facility]R[facility].; [employer]. 01-18-2022 15:07-0500 Body weight 69.04 kg Kan MORGAN MD Work Phone: [employer] [facility]R[facility].; [employer]. 01-18-2022 15:07-0500 Diastolic blood pressure 85 mm[Hg] Kan MORGAN MD Work Phone: [employer] [facility].; [employer] [facility] [employer]. Comment on above: Patient Position: Sitting; Cuff Location : Left Arm; Cuff Size: Standard 01-18-2022 15:07-0500 Heart rate 73 /min Kan MORGAN MD Work Phone: [employer] [facility]naR[facility].; [employer]. Comment on above: Pattern: Regular 01-18-2022 15:07-0500 Systolic blood pressure 174 mm[Hg] Kan MORGAN MD Work Phone: [employer] [facility] [employer]. Comment on above: Patient Position: Sitting; Cuff Location : Left Arm; Cuff Size: Standard 10-26-2021 10:24-0400 Body height 163.19 cm Kan MORGAN MD Work Phone: [employer] [facility]R[facility].; [employer]. 10-26-2021 10:24-0400 Body mass index (BMI) [Ratio] 25.58 kg/m2 Kan MORGAN MD Work Phone: [employer] [facility].; [employer]. 10-26-2021 10:24-0400 Body surface area Derived from formula 1.74 m2 Kan MORGAN MD Work Phone: [facility] [employer] [facility]na[facility]; [employer]. 10-26-2021 10:24-0400 Body weight 68.13 kg Kan MORGAN MD Work Phone: [employer] [facility]naSelect[facility] [employer]; [employer] 10-26-2021 10:24-0400 Diastolic blood pressure 85 mm[Hg] Kan MORGAN MD Work Phone: [employer] [facility]R[facility].; [employer] [facility] [employer] Comment on above: Patient Position: Sitting; Cuff Location : Left Arm; Cuff Size: Standard 10-26-2021 10:24-0400 Heart rate 74 /min Kan MORGAN MD Work Phone: [employer]; [employer] Comment on above: Pattern: Regular 10-26-2021 10:24-0400 Systolic blood pressure 131 mm[Hg] Kan MORGAN MD Work Phone: [employer]; [employer]. Comment on above: Patient Position: Sitting; Cuff Location : Left Arm; Cuff Size: Standard 06-22-2021 13:55-0400 Body height 163.19 cm Kan MORGAN MD Work Phone: [facility] [employer] [facility]na[facility]; [employer] [facility] [employer] 06-22-2021 13:55-0400 Body mass index (BMI) [Ratio] 26.57 kg/m2 Kan MORGAN MD Work Phone: [employer] [facility] [employer] 06-22-2021 13:55-0400 Body surface area Derived from formula 1.77 m2 Kan MORGAN MD Work Phone: [employer] [facility] [facility] [place] [employer]; [employer]. 06-22-2021 13:55-0400 Body temperature 97.9 [degF] Kan MORGAN MD Work Phone: [facility] [employer] [facility] [place] [facility] [employer] [facility] [place]. Comment on above: Method: Oral 06-22-2021 13:55-0400 Body weight 70.76 kg Kan MORGAN MD Work Phone: [facility] [employer] [facility] [place].; [employer]. 06-22-2021 13:55-0400 Diastolic blood pressure 102 mm[Hg] Kan MORGAN MD Work Phone: [facility] [employer] [facility] [place].; [employer] [facility] [employer] [facility] [place] Comment on above: Patient Position: Sitting; Cuff Location : Left Arm; Cuff Size: Large 06-22-2021 13:55-0400 Heart rate 72 /min Kan MORGAN MD Work Phone: [facility] [employer] [facility] [employer]. Comment on above: Pattern: Regular 06-22-2021 13:55-0400 Systolic blood pressure 172 mm[Hg] Kan MORGAN MD Work Phone: [facility] [employer] [facility] [place].; [employer] [facility] [employer] [facility] [place] Comment on above: Patient Position: Sitting; Cuff Location : Left Arm; Cuff Size: Large 06-08-2021 09:39-0400 Body height 163.19 cm KARLA WEST RN [facility] [employer] [facility] [place] [employer] [facility] [employer]. 06-08-2021 09:39-0400 Body mass index (BMI) [Ratio] 26.06 kg/m2 KARLA WEST RN [facility] [employer] [facility] [place] [employer] [facility] [employer]. 06-08-2021 09:39-0400 Body surface area Derived from formula 1.75 m2 KARLA WEST RN [facility] [employer] [facility] [place] [employer] [facility] [employer]. 06-08-2021 09:39-0400 Body temperature 98 [degF] KARLA WEST RN [facility].; [facility] Hospital[facility]. Comment on above: Method: Oral 06-08-2021 09:39-0400 Body weight 69.4 kg KARLA WEST RN [facility].; [facility] 06-08-2021 09:39-0400 Diastolic blood pressure 68 mm[Hg] KARLA WEST RN [facility] Center[facility].; [facility] Hospital[facility]. Comment on above: Patient Position: Sitting; Cuff Location : Left Arm; Cuff Size: Standard 06-08-2021 09:39-0400 Heart rate 60 /min KARLA WEST RN [facility] Center[facility].; [facility]. Comment on above: Pattern: Regular 06-08-2021 09:39-0400 Systolic blood pressure 100 mm[Hg] KARLA WEST RN [facility] Center[facility].; [facility] Hospital[facility]. Comment on above: Patient Position: Sitting; Cuff Location : Left Arm; Cuff Size: Standard 04-13-2021 10:11050 Body height 163.19 cm Catalina West RN [facility], [facility].; [facility] Hospital[facility]. 04-13-2021 10:110500 Body mass index (BMI) [Ratio] 25.55 kg/m2 Catalina West RN [facility], [facility].; [facility] HospitalTrigger F[facility] Industries [facility]. 04-13-2021 10:11-050 Body surface area Derived from formula 1.74 m2 Catalina West RN [facility], [facility].; [facility] HospitalTrigger Finger Industries [facility]. 04-13-2021 10:11050 Body weight 68.04 kg Catalina West RN [facility], [facility].; [facility] Hospital[facility]. 04-13-2021 10:11050 Diastolic blood pressure 75 mm[Hg] Catalina West RN [facility], [facility].; [facility], [employer]. Comment on above: Patient Position: Sitting; Cuff Location : Left Arm; Cuff Size: Standard 04-13-2021 10:11-0500 Heart rate 81 /min Catalina West RN [facility], Inc.; [facility], Inc. Comment on above: Pattern: Regular 04-13-2021 10:11-0500 Systolic blood pressure 128 mm[Hg] Catalina West RN [facility].; [facility], Inc. Comment on above: Patient Position: Sitting; Cuff Location : Left Arm; Cuff Size: Standard 01-26-2021 10:01-0500 Body height 163.19 cm [facility].; [facility], Inc[facility] 01-26-2021 10:01-0500 Body mass index (BMI) [Ratio] 26.4 kg/m2 [facility].; [facility], Inc[facility] 01-26-2021 10:01-0500 Body surface area Derived from formula 1.76 m2 [facility].; [facility], Inc. 01-26-2021 10:01-0500 Body weight 70.31 kg [facility].; [facility], [facility]. 01-26-2021 10:01-0500 Diastolic blood pressure 91 mm[Hg] PEARL [facility], Inc.; [facility], Inc. Comment on above: Patient Position: Sitting; Cuff Location : Left Arm; Cuff Size: Standard 01-26-2021 10:01-0500 Heart rate 77 /min [facility].; [facility], Inc. Comment on above: Pattern: Regular 01-26-2021 10:01-0500 Systolic blood pressure 136 mm[Hg] [facility].; [facility], [facility]. Comment on above: Patient Position: Sitting; Cuff Location : Left Arm; Cuff Size: Standard 09-22-2020 10:58-0400 Body height 163.19 cm [facility].; [facility]. 09-22-2020 10:58-0400 Body mass index (BMI) [Ratio] 26.91 kg/m2 [facility].; [facility]. 09-22-2020 10:58-0400 Body surface area Derived from formula 1.77 m2 [facility].; [facility]. 09-22-2020 10:58-0400 Body weight 71.67 kg [facility].; [facility]. 09-22-2020 10:58-0400 Diastolic blood pressure 76 mm[Hg] [facility].; [facility]. Comment on above: Patient Position: Sitting; Cuff Location : Left Arm; Cuff Size: Standard 09-22-2020 10:58-0400 Heart rate 71 /min [facility].; [facility], [facility]. Comment on above: Pattern: Regular 09-22-2020 10:58-0400 Systolic blood pressure 134 mm[Hg] [facility].; [facility]. Comment on above: Patient Position: Sitting; Cuff Location : Left Arm; Cuff Size: Standard 03-24-2020 10:13-0500 Body height 163.19 cm [facility].; [facility]. 03-24-2020 10:13-0500 Body mass index (BMI) [Ratio] 28.36 kg/m2 [facility].; [facility]. 03-24-2020 10:130500 Body surface area Derived from formula 1.81 m2 [facility], [facility].; [facility], Inc. 03-24-2020 10:130500 Body weight 75.52 kg Keira [facility].; [facility], Inc[facility] 03-24-2020 10:130500 Diastolic blood pressure 79 mm[Hg] [facility], [facility].; [facility], Inc. Comment on above: Patient Position: Sitting; Cuff Location : Left Arm; Cuff Size: Standard 03-24-2020 10:130500 Heart rate 74 /min [facility], [facility].; [facility], [facility]. Comment on above: Pattern: Regular 03-24-2020 10:130500 Systolic blood pressure 130 mm[Hg] [facility].; [facility], Inc. Comment on above: Patient Position: Sitting; Cuff Location : Left Arm; Cuff Size: Standard 09-24-2019 13:22-0400 Body height 163.19 cm [facility], [facility].; [facility], Inc. 09-24-2019 13:22-0400 Body mass index (BMI) [Ratio] 27.93 kg/m2 [facility], [facility].; [facility], [facility]. 09-24-2019 13:22-0400 Body surface area Derived from formula 1.8 m2 [facility] CenterTrigger Finger Industries [facility].; [facility], [facility]. 09-24-2019 13:22-0400 Body weight 74.39 kg [facility], [facility].; [facility], Inc. 09-24-2019 13:22-0400 Diastolic blood pressure 79 mm[Hg] [facility], [facility].; [facility], Inc. Comment on above: Patient Position: Sitting; Cuff Location : Left Arm; Cuff Size: Standard 09-24-2019 13:22-0400 Heart rate 68 /min Keira Alcala [facility] CenterTrigger Finger Industries Inc.; [facility]ITALC[facility] [employer] [employer] [facility] [place], Inc. Comment on above: Pattern: Regular 09-24-2019 13:22-0400 Systolic blood pressure 118 mm[Hg] Keira Alcala [facility], Inc.; SherpanyCODY [facility] [employer] [facility] [place], Inc. Comment on above: Patient Position: Sitting; Cuff Location : Left Arm; Cuff Size: Standard 07-30-2019 10:55-0400 Body height 163.19 cm [facility], [employer].; [facility], Inc. 07-30-2019 10:55-0400 Body mass index (BMI) [Ratio] 28.1 kg/m2 [facility], Inc.; [facility] [employer] [facility] [place], Inc. 07-30-2019 10:55-0400 Body surface area Derived from formula 1.81 m2 [facility] HospitalRift.[facility].; [facility] [employer] [facility] [place], Inc. 07-30-2019 10:55-0400 Body temperature 97.9 [degF] [facility] HospitalTrigger Finger Industries Inc.; [facility] [place] [employer] [facility] [place], Inc. Comment on above: Method: Oral 07-30-2019 10:55-0400 Body weight 74.84 kg [facility] HospitalTrigger Finger Industries Inc.; [employer] [facility] [employer] [facility] [place], Inc. 07-30-2019 10:55-0400 Diastolic blood pressure 92 mm[Hg] [facility] [employer] [facility] [place]naTrigger Finger Industries Inc.; [employer] YAVAPAI-PRESCOTT [employer] [facility] [employer] [facility] [place], Inc. Comment on above: Patient Position: Sitting; Cuff Location : Left Arm; Cuff Size: Standard 07-30-2019 10:55-0400 Heart rate 74 /min [facility] [employer] [facility] [place], [employer].; [employer] [facility] [employer] [facility] [place], Inc. Comment on above: Pattern: Regular 07-30-2019 10:55-0400 Systolic blood pressure 152 mm[Hg] [facility] CareTrigger [employer] [facility].; [facility] HospitalTrigger F[facility] Industries [facility]. Comment on above: Patient Position: Sitting; Cuff Location : Left Arm; Cuff Size: Standard 04-02-2019 13:31-0500 Body height 163.19 cm [facility].; [facility]. 04-02-2019 13:31-0500 Body mass index (BMI) [Ratio] 29.29 kg/m2 [facility].; [facility]. 04-02-2019 13:31-0500 Body surface area Derived from formula 1.84 m2 [facility].; [facility]. 04-02-2019 13:31-0500 Body weight 78.02 kg [facility].; [facility]. 04-02-2019 13:31-0500 Diastolic blood pressure 80 mm[Hg] [facility].; [facility] HospitalTrigger Finger Industries [facility]. Comment on above: Patient Position: Sitting; Cuff Location : Left Arm; Cuff Size: Standard 04-02-2019 13:31-0500 Heart rate 81 /min [facility].; [facility] HospitalTrigger Finger Industries [facility]. Comment on above: Pattern: Regular 04-02-2019 13:31-0500 Systolic blood pressure 118 mm[Hg] [facility].; [facility] HospitalTrigger Finger Industries [facility]. Comment on above: Patient Position: Sitting; Cuff Location : Left Arm; Cuff Size: Standard 10-02-2018 13:52-0400 Body height 163.19 cm Kan MORGAN MD Work Phone: [facility] CenterTrigger Finger Industries [facility].; [facility] HospitalRift.io. 10-02-2018 13:52-0400 Body mass index (BMI) [Ratio] 28.78 kg/m2 Kan MORGAN MD Work Phone: [employer].; [employer]. 10-02-2018 13:52-0400 Body surface area Derived from formula 1.83 m2 Kan MORGAN MD Work Phone: [employer].; [employer] 10-02-2018 13:52-0400 Body weight 76.66 kg Kan MORGAN MD Work Phone: [employer] 10-02-2018 13:52-0400 Diastolic blood pressure 87 mm[Hg] Kan MORGAN MD Work Phone: [employer].; [employer]. Comment on above: Patient Position: Sitting; Cuff Location : Left Arm; Cuff Size: Standard 10-02-2018 13:52-0400 Heart rate 80 /min Kan MORGAN MD Work Phone: [employer].; [employer]. Comment on above: Pattern: Regular 10-02-2018 13:52-0400 Systolic blood pressure 134 mm[Hg] Kan MORGAN MD Work Phone: [employer]. Comment on above: Patient Position: Sitting; Cuff Location : Left Arm; Cuff Size: Standard 04-10-2018 13:37-0500 Body height 163.19 cm Marlin [employer].; [employer] 04-10-2018 13:37-0500 Body mass index (BMI) [Ratio] 28.46 kg/m2 Marlin [employer] Inc.; [employer], Inc. 04-10-2018 13:37-0500 Body surface area Derived from formula 1.82 m2 Mariln [employer].; [employer], Inc. 04-10-2018 13:37-0500 Body weight 75.81 kg Marlin Quiroz [employer] [facility] [place], Inc.; ROSALINDA YAVAPAI-PRESCOTT [employer], Inc. 04-10-2018 13:37-0500 Diastolic blood pressure 72 mm[Hg] Marlin Quiroz [email or web address], Inc.; WALLoci ControlsEK [employer], Inc. Comment on above: Patient Position: Sitting; Cuff Location : Left Arm; Cuff Size: Standard 04-10-2018 13:37-0500 Heart rate 81 /min Marlin Quiroz [employer] [facility] [place], Inc.; WALLoci [employer]EK [employer], Inc. Comment on above: Pattern: Regular 04-10-2018 13:37-0500 Systolic blood pressure 113 mm[Hg] Marlin Quiroz [email or web address], Inc.; ANDRYLoci ControlsEK [employer] [facility] [email or web address], Inc. Comment on above: Patient Position: Sitting; Cuff Location : Left Arm; Cuff Size: Standard 06-20-2017 13:02-0400 Body height 163.19 cm Marlin Pedersen [facility] Inc.; ANDRYLoci ControlsEK [employer], Inc. 06-20-2017 13:02-0400 Body mass index (BMI) [Ratio] 28.44 kg/m2 Marlin Evanswilma [facility] [employer] [facility] [place], Inc.; ANDRYLoci ControlsEK [employer], Inc. 06-20-2017 13:02-0400 Body surface area Derived from formula 1.82 m2 [facility]lin [facility], Inc.; ANDRYLoci ControlsEK [employer], Inc. 06-20-2017 13:02-0400 Body weight 75.75 kg Marlin [facility] [email or web address], Inc.; ANDRYLoci ControlsEK [employer], Inc. 06-20-2017 13:02-0400 Diastolic blood pressure 92 mm[Hg] Marlin [facility], Inc.; WALLoci [employer]EK [employer], Inc. Comment on above: Patient Position: Sitting; Cuff Location : Left Arm; Cuff Size: Standard 06-20-2017 13:02-0400 Heart rate 64 /min [facility] [employer] [facility] [place]naTrigger Finger Industries Inc.; [facility]-PRESBYTERIAN HOSPITALFanKave YAVAPAI-PRESCOTT Private Company [facility] HospitalKrave-N [facility], [place]naTrigger Finger Industries Inc. Comment on above: Pattern: Regular 06-20-2017 13:02-0400 Systolic blood pressure 157 mm[Hg] [facility] [employer] [facility] [place]rnaTrigger Finger Industries Inc.; [employer] [facility] [employer] [facility] [place], Inc. Comment on above: Patient Position: Sitting; Cuff Location : Left Arm; Cuff Size: Standard 03-21-2017 15:43-0500 Body height 163.19 cm [facility] [employer] [facility] [place].; [employer]EK Private [employer] [facility] [employer] [facility] [place], Inc. 03-21-2017 15:43-0500 Body mass index (BMI) [Ratio] 28.1 kg/m2 [facility]angerKra[facility] [place].; [employer] [facility] [employer] [facility] [place], Inc. 03-21-2017 15:43-0500 Body surface area Derived from formula 1.81 m2 [facility] ErlangerKrave-N [facility] [place].; [employer] YAVAPAI-PRESCOTT [employer] [facility] [employer] [facility] [place], Inc. 03-21-2017 15:43-0500 Body temperature 97.3 [degF] [facility] [employer] [facility] [place].; [employer] YAVAPAI-PRESCOTT [employer], Inc. Comment on above: Method: Oral 03-21-2017 15:43-0500 Body weight 74.84 kg [facility] ErlangerKrave-N [facility] [place].; [employer], Inc. 03-21-2017 15:43-0500 Diastolic blood pressure 81 mm[Hg] [facility] ErlangerKrave-N [facility] [place].; [employer]EK [employer] Inc. Comment on above: Patient Position: Sitting; Cuff Location : Left Arm; Cuff Size: Standard 03-21-2017 15:43-0500 Heart rate 81 /min [facility] [place].; Wan[employer]EK [employer], Inc. Comment on above: Pattern: Regular 03-21-2017 15:43-0500 Systolic blood pressure 131 mm[Hg] Keira [facility] S[place]rnaTrigger Finger Industries Inc.; [employer], Inc. Comment on above: Patient Position: Sitting; Cuff Location : Left Arm; Cuff Size: Standard 06-14-2016 08:58-0400 Body height 163.19 cm [facility], [employer].; [facility], Inc. 06-14-2016 08:58-0400 Body mass index (BMI) [Ratio] 27.93 kg/m2 [facility], Inc.; [facility], Inc. 06-14-2016 08:58-0400 Body surface area Derived from formula 1.8 m2 [facility], [facility].; [facility] [employer] [facility] [place], Inc. 06-14-2016 08:58-0400 Body weight 74.39 kg [facility] CenterTrigger Finger Industries [facility].; [facility] [employer] [facility] [place], Inc. 06-14-2016 08:58-0400 Diastolic blood pressure 83 mm[Hg] [facility] CenterTrigger F[facility] Industries Inc.; [facility] [employer] [facility] [place], Inc. Comment on above: Patient Position: Sitting; Cuff Location : Left Arm; Cuff Size: Standard 06-14-2016 08:58-0400 Heart rate 71 /min [facility] CenterRift.io.; [facility] [employer] [facility] [place], Inc. Comment on above: Pattern: Regular 06-14-2016 08:58-0400 Systolic blood pressure 131 mm[Hg] [facility] CenterRift.io.; [facility] [employer] [facility] [place], Inc. Comment on above: Patient Position: Sitting; Cuff Location : Left Arm; Cuff Size: Standard 03-16-2016 16:37-0500 Body height 158.75 cm [facility], [employer].; [facility] [employer] [facility] [place], Inc. 03-16-2016 16:37-0500 Body mass index (BMI) [Ratio] 29.7 kg/m2 [facility], Inc.; [facility] [employer] [facility] [place], Inc. 03-16-2016 16:37-0500 Body surface area Derived from formula 1.77 m2 [facility], [employer].; [facility] [employer] [facility] [place], Inc. 03-16-2016 16:37-0500 Body weight 74.84 kg [facility], Inc.; [facility] [employer] [facility] [place], Inc. 03-16-2016 16:37-0500 Diastolic blood pressure 82 mm[Hg] [facility] [employer] [facility] [place], Inc.; [place] YAVAPAI-PRESCOTTLakeview Regional Medical Center [employer] [facility] [place], Inc. Comment on above: Patient Position: Sitting; Cuff Location : Left Arm; Cuff Size: Standard 03-16-2016 16:37-0500 Heart rate 86 /min [facility] [employer] [facility] [place], Inc.; [facility]-PRESBYTERIAN HOSPITALLoci ControlsLakeview Regional Medical Center [employer] [facility] [place], Inc. Comment on above: Pattern: Regular 03-16-2016 16:37-0500 Systolic blood pressure 144 mm[Hg] [facility] [employer] [facility] [place], Inc.; [facility]-PRESBYTERIAN HOSPITALLoci ControlsErlanger [facility] Zimmerman [employer] [facility] [place], Inc. Comment on above: Patient Position: Sitting; Cuff Location : Left Arm; Cuff Size: Standard 03-09-2016 14:49-0500 Body height 158.75 cm CHRISTINA GRATE EDVIN [facility], Inc.; [facility] [employer] [facility] [place], Inc. 03-09-2016 14:49-0500 Body mass index (BMI) [Ratio] 29.52 kg/m2 CHRISTINA GRATE EDVIN [facility], Inc.; [facility]-PRESBYTERIAN HOSPITALFanKave [facility] [employer] [facility] [place], Inc. 03-09-2016 14:49-0500 Body surface area Derived from formula 1.77 m2 CHRISTINA GRATE EDVIN [facility], Inc.; [facility]-PRESBYTERIAN HOSPITALFanKave [facility] [employer] [facility] [place], Inc. 03-09-2016 14:49-0500 Body weight 74.39 kg CHRISTINA GRATE EDVIN [facility], Inc.; [facility]-PRESBYTERIAN HOSPITALLoci ControlsLakeview Regional Medical Center [employer] [facility] [place], Inc. 03-09-2016 14:49-0500 Diastolic blood pressure 90 mm[Hg] CHRISTINA GRATE EDVIN [facility] [employer] [facility] [place], Inc.; Wanjee Operation and MaintenanceErlanger [facility] Zimmerman [employer] [facility] [place], Inc. Comment on above: Patient Position: Sitting; Cuff Location : Left Arm; Cuff Size: Standard 03-09-2016 14:49-0500 Heart rate 75 /min CHRISTINA GRATE EDVIN [facility], Inc.; [facility], Inc. Comment on above: Pattern: Regular 03-09-2016 14:49-0500 Systolic blood pressure 156 mm[Hg] CHRISTINA MAYER RN [facility] Inc.; [facility], Inc. Comment on above: Patient Position: Sitting; Cuff Location : Left Arm; Cuff Size: Standard 02-23-2016 09:51-0500 Body height 158.75 cm [facility], [facility].; [facility], Inc. 02-23-2016 09:51-0500 Body mass index (BMI) [Ratio] 29.38 kg/m2 [facility], Inc. 02-23-2016 09:51-0500 Body surface area Derived from formula 1.76 m2 [facility], [facility].; [facility], [facility]. 02-23-2016 09:51-0500 Body weight 74.05 kg [facility], Inc. 02-23-2016 09:51-0500 Diastolic blood pressure 83 mm[Hg] [facility], Inc. Comment on above: Patient Position: Sitting; Cuff Location : Left Arm; Cuff Size: Standard 02-23-2016 09:51-0500 Heart rate 72 /min [facility].; [facility], Inc. Comment on above: Pattern: Regular 02-23-2016 09:51-0500 Systolic blood pressure 133 mm[Hg] [facility] Inc.; [facility], Inc. Comment on above: Patient Position: Sitting; Cuff Location : Left Arm; Cuff Size: Standard 11-17-2015 09:36-0400 Body height 158.75 cm [facility] [employer] [facility], Inc. 11-17-2015 09:36-0400 Body mass index (BMI) [Ratio] 29.3 kg/m2 [facility], Inc.; [facility], Inc. 11-17-2015 09:36-0400 Body surface area Derived from formula 1.76 m2 [facility], Inc.; [facility], Inc. 11-17-2015 09:36-0400 Body weight 73.85 kg [facility], Inc.; [facility] [employer] [facility], Inc. 11-17-2015 09:36-0400 Diastolic blood pressure 95 mm[Hg] [facility] Inc.; [facility] [employer] [facility], Inc. Comment on above: Patient Position: Sitting; Cuff Location : Left Arm; Cuff Size: Standard 11-17-2015 09:36-0400 Heart rate 76 /min [facility].; [facility] [employer] [facility], Inc. Comment on above: Pattern: Regular 11-17-2015 09:36-0400 Systolic blood pressure 136 mm[Hg] [facility] [employer] [facility].; [facility] [employer] [facility], Inc. Comment on above: Patient Position: Sitting; Cuff Location : Left Arm; Cuff Size: Standard 07-14-2015 13:00-0400 Body height 163.19 cm [facility] [employer] [facility], Inc.; [facility] [employer] [facility], Inc. 07-14-2015 13:00-0400 Body mass index (BMI) [Ratio] 28.53 kg/m2 [facility] [employer] [facility], Inc.; [facility] [employer] [facility], Inc. 07-14-2015 13:00-0400 Body surface area Derived from formula 1.82 m2 [facility] [employer] [facility], Inc.; [facility] [employer] [facility], Inc. 07-14-2015 13:00-0400 Body weight 75.98 kg [facility], Inc.; [facility] [employer] [facility], Inc. 07-14-2015 13:00-0400 Diastolic blood pressure 79 mm[Hg] [facility] [employer] [facility], Inc.; [facility] [employer] [facility], Inc. Comment on above: Patient Position: Sitting; Cuff Location : Left Arm; Cuff Size: Standard 07-14-2015 13:00-0400 Heart rate 71 /min [facility], Inc.; [facility] [employer] [facility], Inc. Comment on above: Pattern: Regular 07-14-2015 13:00-0400 Systolic blood pressure 123 mm[Hg] [facility] [employer] [facility], Inc.; [facility] [employer] [facility], Inc. Comment on above: Patient Position: Sitting; Cuff Location : Left Arm; Cuff Size: Standard 04-07-2015 10:00-0500 Body height 163.19 cm [facility], Inc.; [facility] [employer] [facility], Inc. 04-07-2015 10:00-0500 Body mass index (BMI) [Ratio] 28.78 kg/m2 [facility], Inc.; [facility], Inc. 04-07-2015 10:00-0500 Body surface area Derived from formula 1.83 m2 [facility], [facility].; [facility], Inc. 04-07-2015 10:00-0500 Body weight 76.66 kg [facility].; [facility] [employer] [facility], Inc. 04-07-2015 10:00-0500 Diastolic blood pressure 87 mm[Hg] [facility] [employer] [facility]na[facility] Inc.; [facility] [employer] [facility], Inc. Comment on above: Patient Position: Sitting; Cuff Location : Left Arm; Cuff Size: Standard 04-07-2015 10:00-0500 Heart rate 58 /min [facility] [employer] [facility], Inc.; [facility] [employer] [facility], Inc. Comment on above: Pattern: Regular 04-07-2015 10:00-0500 Systolic blood pressure 136 mm[Hg] [facility] [employer] [facility], Inc.; [facility] [employer] [facility], Inc. Comment on above: Patient Position: Sitting; Cuff Location : Left Arm; Cuff Size: Standard 12-30-2014 10:14-0500 Body height 161.29 cm CHRISTINA GRATE EDVIN [facility], Inc.; [facility], Inc. 12-30-2014 10:14-0500 Body mass index (BMI) [Ratio] 28.94 kg/m2 CHRISTINA GRATE RN [facility], Inc.; [facility], Inc. 12-30-2014 10:14-0500 Body surface area Derived from formula 1.8 m2 CHRISTINA GRATE EDVIN [facility], Inc.; [facility], Inc. 12-30-2014 10:14-0500 Body weight 75.3 kg CHRISTINA GRATE EDVIN [facility], [facility].; [facility], Inc. 12-30-2014 10:14-0500 Diastolic blood pressure 94 mm[Hg] CHRISTINA GRATE EDVIN [facility], [facility].; [facility] [employer] [facility], [employer]. Comment on above: Patient Position: Sitting; Cuff Location : Left Arm; Cuff Size: Large 12-30-2014 10:14-0500 Heart rate 69 /min CHRISTINA GRATE EDVIN [facility], [facility].; [facility] [employer] [facility], Inc. Comment on above: Pattern: Regular 12-30-2014 10:14-0500 Systolic blood pressure 150 mm[Hg] CHRISTINA GRATE EDVIN [facility], [facility].; [facility], [employer]. Comment on above: Patient Position: Sitting; Cuff Location : Left Arm; Cuff Size: Large 08-26-2014 [id number] Body height 161.29 cm [facility], [facility].; [facility], Inc. 08-26-2014 10:08-0400 Body mass index (BMI) [Ratio] 28.6 kg/m2 [facility], [facility].; [facility], Inc. 08-26-2014 [id number] Body surface area Derived from formula 1.79 m2 [facility], [facility].; [facility], Inc. 08-26-2014 [id number] Body weight 74.39 kg [facility], [facility].; [facility], Inc. 08-26-2014 10:08-0400 Diastolic blood pressure 81 mm[Hg] [facility] [employer] [facility].; [facility], Inc. Comment on above: Patient Position: Sitting; Cuff Location : Left Arm; Cuff Size: Standard 08-26-2014 10:08-0400 Heart rate 66 /min [facility] [employer] [facility].; [facility] [employer] [facility], Inc. Comment on above: Pattern: Regular 08-26-2014 10:08-0400 Systolic blood pressure 119 mm[Hg] [facility] [employer] [facility]na[facility] Inc.; [facility] [employer] [facility], Inc. Comment on above: Patient Position: Sitting; Cuff Location : Left Arm; Cuff Size: Standard 06-24-2014 13:17-0400 Diastolic blood pressure 87 mm[Hg] [facility] [employer] [facility].; [facility] [employer] [facility], Inc. Comment on above: Patient Position: Sitting; Cuff Location : Left Arm; Cuff Size: Standard 06-24-2014 13:17-0400 Heart rate 82 /min [facility] [employer] [facility].; [facility] [employer] [facility], Inc. Comment on above: Pattern: Regular 06-24-2014 13:17-0400 Systolic blood pressure 135 mm[Hg] [facility] [employer] [facility].; [facility], Inc. Comment on above: Patient Position: Sitting; Cuff Location : Left Arm; Cuff Size: Standard 06-24-2014 13:09-0400 Body height 161.29 cm Kan MORGAN MD Work Phone: [facility] [employer] [facility].; [employer] [employer] [facility] [place]. 06-24-2014 13:09-0400 Body mass index (BMI) [Ratio] 25.63 kg/m2 Kan MORGAN MD Work Phone: [facility] [employer] [facility].; [facility] [employer] [facility] [place]. 06-24-2014 13:09-0400 Body surface area Derived from formula 1.71 m2 Kan MORGAN MD Work Phone: [facility] [employer] [facility] [place].; [employer] [place] [employer]. 06-24-2014 13:09-0400 Body weight 66.68 kg Kan MORGAN MD Work Phone: [facility] [place].; [facility] [employer] [facility] [place]. 05-27-2014 10:02-0400 Body height 161.29 cm Marian Ramírez RN [facility] [employer] [facility], Inc.; [facility] [employer] [facility]na[facility] [employer] Inc. 05-27-2014 10:02-0400 Body mass index (BMI) [Ratio] 25.63 kg/m2 Marian Ramírez RN [facility] [employer] [facility], [employer].; [facility] [employer] [facility] [place]. 05-27-2014 10:02-0400 Body surface area Derived from formula 1.71 m2 Marian Ramírez RN [facility] [employer] [facility], [employer].; [facility] [employer]. 05-27-2014 10:02-0400 Body temperature 98.1 [degF] Marian Ramírez RN [facility] [employer] [facility] [place].; [employer]. Comment on above: Method: Oral 05-27-2014 10:02-0400 Body weight 66.68 kg Marian Ramírez RN [facility] [employer] [facility] [place].; [facility] [employer]. 05-27-2014 10:02-0400 Diastolic blood pressure 75 mm[Hg] Marian Ramírez RN [facility] [employer] [facility] [place].; [facility] [employer]. Comment on above: Patient Position: Sitting; Cuff Location : Left Arm; Cuff Size: Standard 05-27-2014 10:02-0400 Heart rate 75 /min Marian Ramírez RN [facility] [employer] [facility] [place].; AWAK [facility] [employer]. Comment on above: Pattern: Regular 05-27-2014 10:02-0400 Systolic blood pressure 111 mm[Hg] Marian Ramírez RN [facility] [employer] [facility] [place].; [employer]. Comment on above: Patient Position: Sitting; Cuff Location : Left Arm; Cuff Size: Standard 02-25-2014 09:39-0500 Body height 161.29 cm Judith Isaacs RN [facility] [employer] [facility], [employer].; [facility] [employer], [employer]. 02-25-2014 09:39-0500 Body mass index (BMI) [Ratio] 25.81 kg/m2 Judith Isaacs RN [facility], Inc.; [facility], Inc. 02-25-2014 09:39-0500 Body surface area Derived from formula 1.71 m2 Judith Isaacs RN [facility], Inc.; [facility] [employer] [facility], Inc. 02-25-2014 09:39-0500 Body weight 67.13 kg Judith Isaacs RN [facility], Inc.; [facility] [employer] [facility], Inc. 02-25-2014 09:39-0500 Diastolic blood pressure 76 mm[Hg] Judith Isaacs RN [facility] [employer] [facility], Inc.; [facility] [employer] [facility], Inc. Comment on above: Patient Position: Sitting; Cuff Location : Left Arm; Cuff Size: Standard 02-25-2014 09:39-0500 Heart rate 75 /min Judith Isaacs RN [facility] [employer] [facility], [employer].; [facility] [employer] [facility], Inc. Comment on above: Pattern: Regular 02-25-2014 09:39-0500 Systolic blood pressure 149 mm[Hg] Judith Isaacs RN [facility] [employer] [facility], Inc.; [facility] [employer] [facility], Inc. Comment on above: Patient Position: Sitting; Cuff Location : Left Arm; Cuff Size: Standard 10-08-2013 14:49-0400 Body height 161.29 cm [facility] [employer] [facility], Inc.; [facility] [employer] [facility], Inc. 10-08-2013 14:49-0400 Body mass index (BMI) [Ratio] 26.33 kg/m2 [facility] [employer] [facility], Inc.; [facility] [employer] [facility], Inc. 10-08-2013 14:49-0400 Body surface area Derived from formula 1.73 m2 [facility] [employer] [facility], Inc.; [facility] [employer] [facility], Inc. 10-08-2013 14:49-0400 Body weight 68.49 kg [facility] [employer] [facility], Inc.; [facility] [employer] [facility], Inc. 10-08-2013 14:49-0400 Diastolic blood pressure 92 mm[Hg] [facility] [employer] [facility].; [place] [facility] [employer] [facility], [employer]. Comment on above: Patient Position: Sitting; Cuff Location : Left Arm; Cuff Size: Standard 10-08-2013 14:49-0400 Heart rate 75 /min Keira Alcala [facility], [employer].; [facility] [employer] [facility], Inc. Comment on above: Pattern: Regular 10-08-2013 14:49-0400 Systolic blood pressure 145 mm[Hg] Keira Alcala [facility], Inc.; [facility] [employer] [facility], Inc. Comment on above: Patient Position: Sitting; Cuff Location : Left Arm; Cuff Size: Standard 08-13-2013 15:190400 Body height 161.29 cm Judith Isaacs RN [facility], [employer] [facility], Inc. 08-13-2013 15:19-0400 Body mass index (BMI) [Ratio] 26.5 kg/m2 Judith Isaacs RN [facility], Inc.; [facility], [facility]. 08-13-2013 15:19-0400 Body surface area Derived from formula 1.73 m2 Judith Isaacs RN [facility], Inc.; [facility], Inc. 08-13-2013 15:19-0400 Body weight 68.95 kg Judith Isaacs RN [facility], [facility].; [facility] [employer] [facility], Inc. 08-13-2013 15:19-0400 Diastolic blood pressure 92 mm[Hg] Judith Isaacs RN [facility], Inc.; [facility] [employer] [facility], Inc. Comment on above: Patient Position: Sitting; Cuff Location : Left Arm; Cuff Size: Standard 08-13-2013 15:19-0400 Heart rate 76 /min Judith Isaacs RN [facility] [employer] [facility], Inc.; [facility] [employer] [facility], Inc. Comment on above: Pattern: Regular 08-13-2013 15:19-0400 Systolic blood pressure 166 mm[Hg] Judith Isaacs RN [facility] [employer] [facility], Inc.; [facility] [employer] [facility], Inc. Comment on above: Patient Position: Sitting; Cuff Location : Left Arm; Cuff Size: Standard 07-09-2013 09:02-0400 Body height 161.29 cm Judith Isaacs RN [facility], Inc.; [facility], Inc. 07-09-2013 09:02-0400 Body mass index (BMI) [Ratio] 26.15 kg/m2 Judith Isaacs RN [facility], Inc.; [facility], Inc. 07-09-2013 09:02-0400 Body surface area Derived from formula 1.72 m2 Judith Isaacs RN [facility], Inc.; [facility], Inc. 07-09-2013 09:02-0400 Body weight 68.04 kg Judith Isaacs RN [facility], Inc.; [facility], Inc. 07-09-2013 09:02-0400 Diastolic blood pressure 98 mm[Hg] Judith Isaacs RN [facility], Inc.; [facility] [employer] [facility], Inc. Comment on above: Patient Position: Sitting; Cuff Location : Left Arm; Cuff Size: Standard 07-09-2013 09:02-0400 Heart rate 64 /min Judith Isaacs RN [facility], Inc.; [facility] [employer] [facility], Inc. Comment on above: Pattern: Regular 07-09-2013 09:02-0400 Systolic blood pressure 161 mm[Hg] Judith Isaacs RN [facility], Inc.; [facility], Inc. Comment on above: Patient Position: Sitting; Cuff Location : Left Arm; Cuff Size: Standard 06-04-2013 14:42-0400 Body height 161.29 cm Judith Isaacs RN [facility], Inc.; [facility], Inc. 06-04-2013 14:42-0400 Body mass index (BMI) [Ratio] 26.68 kg/m2 Judith Isaacs RN [facility], Inc.; [facility], Inc. 06-04-2013 14:42-0400 Body surface area Derived from formula 1.74 m2 Judith Isaacs RN [facility], Inc.; [facility] [employer] [facility], Inc. 06-04-2013 14:42-0400 Body weight 69.4 kg Judith Isaacs RN [facility] [employer] [facility], Inc.; [facility] [employer] [facility], Inc. 06-04-2013 14:42-0400 Diastolic blood pressure 93 mm[Hg] Judith [facility]acs RN [facility].; [facility] [employer] [facility], [employer]. Comment on above: Patient Position: Sitting; Cuff Location : Left Arm; Cuff Size: Standard 06-04-2013 14:42-0400 Heart rate 72 /min Judith Isaacs RN [facility] [employer] [facility]na[facility] [employer] Inc.; [facility] [employer] [facility], Inc. Comment on above: Pattern: Regular 06-04-2013 14:42-0400 Systolic blood pressure 153 mm[Hg] Judith Isaacs RN [facility] [employer] [facility].; [facility] [employer] [facility], [employer]. Comment on above: Patient Position: Sitting; Cuff Location : Left Arm; Cuff Size: Standard 03-12-2013 14:59-0500 Body height 161.29 cm [facility] [employer] [facility]na[facility] [employer] [facility].; [facility] [employer] [facility], Inc. 03-12-2013 14:59-0500 Body mass index (BMI) [Ratio] 26.85 kg/m2 [facility].; [facility] [employer] [facility], Inc. 03-12-2013 14:59-0500 Body surface area Derived from formula 1.74 m2 [facility].; [facility] [employer] [facility], Inc. 03-12-2013 14:59-0500 Body weight 69.85 kg [facility] [employer] [facility]na[facility] [employer] [facility].; [facility] [employer] [facility], Inc. 03-12-2013 14:59-0500 Diastolic blood pressure 97 mm[Hg] [facility] [employer] [facility].; [facility] [employer] [facility] [place], [employer]. Comment on above: Patient Position: Sitting; Cuff Location : Left Arm; Cuff Size: Standard 03-12-2013 14:59-0500 Heart rate 75 /min [facility] [employer] [facility].; AWAK [facility] [employer] [facility] [place], [employer]. Comment on above: Pattern: Regular 03-12-2013 14:59-0500 Systolic blood pressure 172 mm[Hg] [facility] [employer] [facility].; AWAK [facility] [employer] [facility] [place], [employer]. Comment on above: Patient Position: Sitting; Cuff Location : Left Arm; Cuff Size: Standard 01-26-2013 09:29-0500 Body height 161.29 cm Judith Isaacs RN [facility] [employer] [facility] [place], Inc.; [facility] [employer] [facility] [place], [facility]. 01-26-2013 09:29-0500 Body mass index (BMI) [Ratio] 25.63 kg/m2 Judith Isaacs RN [facility], Inc.; [facility] [employer] [facility] [place]. 01-26-2013 09:29-0500 Body surface area Derived from formula 1.71 m2 Judith Isaacs RN [facility] [employer] [facility] [place], Inc.; NeuroDerm [facility] [employer] [facility] [place], Inc. 01-26-2013 09:29-0500 Body weight 66.68 kg Judith Isaacs RN [facility], Inc.; [facility]erm [facility] [employer] [employer] [facility] [place], Inc. 01-26-2013 09:29-0500 Diastolic blood pressure 117 mm[Hg] Judith Isaacs RN [facility] [employer] [facility] [place], Inc.; [facility]erm [facility] [employer] [employer] [facility] [place], Inc. Comment on above: Patient Position: Sitting; Cuff Location : Left Arm; Cuff Size: Standard 01-26-2013 09:29-0500 Heart rate 88 /min Judith Isaacs RN [facility] [employer] [facility] [place], Inc.; [facility]Derm [facility] [employer] [facility] [place], Inc. Comment on above: Pattern: Regular 01-26-2013 09:29-0500 Systolic blood pressure 163 mm[Hg] Judith Isaacs RN [facility] [employer] [facility] [place], Inc.; [facility]erm [facility] [employer] [facility] [place], Inc. Comment on above: Patient Position: Sitting; Cuff Location : Left Arm; Cuff Size: Standard 08-21-2012 11:31-0400 Body height 161.29 cm Judith Isaacs RN [facility] [employer] [facility] [place], Inc.; [facility]erm [facility] [employer] [employer] [facility] [place], Inc. 08-21-2012 11:31-0400 Body mass index (BMI) [Ratio] 26.15 kg/m2 Judith Isaacs RN [facility] [employer] [facility] [place], Inc.; [facility] [employer] [facility] [place], Inc. 08-21-2012 11:31-0400 Body surface area Derived from formula 1.72 m2 Judith Isaacs RN [facility] [employer] [facility] [place], Inc.; [facility] [employer] [facility] [place], Inc. 08-21-2012 11:31-0400 Body weight 68.04 kg Judith Isaacs RN [facility] [place].; [facility] [employer] [facility] [place] 08-21-2012 11:31-0400 Diastolic blood pressure 94 mm[Hg] Judith Isaacs RN [facility] [employer] [facility] [place].; [facility] [employer] [facility] [place]. Comment on above: Patient Position: Sitting; Cuff Location : Left Arm; Cuff Size: Large 08-21-2012 11:31-0400 Heart rate 73 /min Judith Isaacs RN [facility] [place].; NeuroDerm [facility] [employer] [facility] [place]. Comment on above: Pattern: Regular 08-21-2012 11:31-0400 Systolic blood pressure 170 mm[Hg] Judith Isaacs RN [facility] Hospital[facility] [place].; [employer] [employer] [facility] [place]. Comment on above: Patient Position: Sitting; Cuff Location : Left Arm; Cuff Size: Large 08-25-2011 10:42-0400 Body height 161.29 cm Kan MORGAN MD Work Phone: [facility] [employer] [facility] [place].; [employer] [facility] [employer]Tell. 08-25-2011 10:42-0400 Body mass index (BMI) [Ratio] 25.46 kg/m2 Kan MORGAN MD Work Phone: [facility] [employer] [facility] [place].; [facility] [employer]Tell. 08-25-2011 10:42-0400 Body surface area Derived from formula 1.7 m2 Kan MORGAN MD Work Phone: [facility].; AW[employer] [facility] [employer]. 08-25-2011 10:42-0400 Body weight 66.23 kg Kan MORGAN MD Work Phone: [facility].; AWAK [facility] [employer] [facility] [place]. 08-25-2011 10:42-0400 Diastolic blood pressure 116 mm[Hg] Kan MORGAN MD Work Phone: [facility] [place].; AWAK [facility] [employer] [facility] [place]. Comment on above: Patient Position: Sitting; Cuff Location : Left Arm; Cuff Size: Standard 08-25-2011 10:42-0400 Heart rate 83 /min Kan MORGAN MD Work Phone: [employer]; [employer]. Comment on above: Pattern: Regular 08-25-2011 10:42-0400 Systolic blood pressure 199 mm[Hg] Kan MORGAN MD Work Phone: [employer] [facility].; [employer]. Comment on above: Patient Position: Sitting; Cuff Location : Left Arm; Cuff Size: Standard 03-09-2011 14:08-0500 Body height 161.29 cm Kan MORGAN MD Work Phone: [employer]. 03-09-2011 14:08-0500 Body mass index (BMI) [Ratio] 25.28 kg/m2 Kan MORGAN MD Work Phone: [employer]. 03-09-2011 14:08-0500 Body surface area Derived from formula 1.7 m2 Kan MORGAN MD Work Phone: [employer]. 03-09-2011 14:08-0500 Body weight 65.77 kg Kan MORGAN MD Work Phone: [employer]. 03-09-2011 14:08-0500 Diastolic blood pressure 99 mm[Hg] Kan MORGAN MD Work Phone: [employer]. Comment on above: Patient Position: Sitting; Cuff Location : Left Arm; Cuff Size: Standard 03-09-2011 14:08-0500 Heart rate 83 /min Kan MORGAN MD Work Phone: [employer]; [employer] Comment on above: Pattern: Regular 03-09-2011 14:08-0500 Systolic blood pressure 165 mm[Hg] Kan MORGAN MD Work Phone: [facility] [employer] [facility]na[facility]; [employer] [facility] [employer] [facility] [place]. Comment on above: Patient Position: Sitting; Cuff Location : Left Arm; Cuff Size: Standard 07-07-2010 15:29-0400 Body weight 68.04 kg Kan MORGAN MD Work Phone: [facility] [place].; [facility] [employer] [facility] [place]. 07-07-2010 15:29-0400 Diastolic blood pressure 122 mm[Hg] Kan MORGAN MD Work Phone: [facility] [place].; AWAK [facility] [employer] [facility] [place]. Comment on above: Patient Position: Sitting; Cuff Location : Left Arm; Cuff Size: Standard 07-07-2010 15:29-0400 Heart rate 67 /min Kan MORGAN MD Work Phone: [facility] Hospital[facility] [place].; AWAK [facility] [employer] [facility] [place]. Comment on above: Pattern: Regular 07-07-2010 15:29-0400 Respiratory rate 16 /min Kan MORGAN MD Work Phone: [facility] [employer] [facility] [place].; AWAK [facility] [employer] [facility] [place]. Comment on above: Pattern: Unlabored 07-07-2010 15:29-0400 Systolic blood pressure 170 mm[Hg] Kan MORGAN MD Work Phone: [facility] Hospital[facility] [place].; AWAK [facility] [employer] [facility] [place]. Comment on above: Patient Position: Sitting; Cuff Location : Left Arm; Cuff Size: Standard 06-16-2010 10:23-0400 Body height 161.29 cm Kan MORGAN MD Work Phone: [facility] HospitalK[facility]naSelect[facility]; AWAK [facility] [employer] [facility] [place]. 06-16-2010 10:23-0400 Body mass index (BMI) [Ratio] 25.63 kg/m2 Kan MORGAN MD Work Phone: [facility] HospitalK[facility]; AW[employer] [facility] PhoneTell. 06-16-2010 10:23-0400 Body surface area Derived from formula 1.71 m2 Kan MORGAN MD Work Phone: [facility].; [employer] [facility] PhoneTell. 06-16-2010 10:23-0400 Body weight 66.68 kg Kan MORGAN MD Work Phone: [facility].; [employer] [facility] PhoneTell. 06-16-2010 10:23-0400 Diastolic blood pressure 94 mm[Hg] Kan MORGAN MD Work Phone: [facility].; [employer] [facility] PhoneTell. Comment on above: Patient Position: Sitting; Cuff Location : Left Arm; Cuff Size: Standard 06-16-2010 10:23-0400 Heart rate 67 /min Kan MORGAN MD Work Phone: [facility] HospitalK[facility] [place]; AW[employer] [facility] PhoneTell. Comment on above: Pattern: Regular 06-16-2010 10:23-0400 Systolic blood pressure 158 mm[Hg] Kan MORGAN MD Work Phone: [facility] HospitalRe[facility]; AWAK [facility] PhoneTell. Comment on above: Patient Position: Sitting; Cuff Location : Left Arm; Cuff Size: Standard Encounters Encounter Date Encounter Type Care Provider Facility Start: 07-07-2024 End: 07-07-2024 Kan MORGAN MD [facility] [email or web address] Start: 07-02-2024 End: 07-02-[address] [facility] Start: 07-01-2024 End: 07-01-[address] Teo Velazquez MD -[facility] Start: 07-01-2024 End: 07-01-[address] Yousif Morgan MD Work Phone: [facility] Work Phone: Start: 06-18-2024 End: 06-18-[address] Teo Velazquez MD -[facility] Work Phone: Start: 06-18-2024 End: 06-18-2024 ambulatory Teo Velazquez Facility:[facility] Start: 06-18-2024 Kan MORGAN MD Work Phone: [employer] Start: 06-18-2024 End: 06-18-2024 Office outpatient visit 15 minutes Kan MORGAN MD Work Phone: [employer] Start: 03-18-2024 End: 03-18-2024 Patient encounter procedure Marilin KNIGHT -Laboratory Work Phone: Start: 03-18-2024 End: 03-18-2024 ambulatory Marilin KNIGHT Facility:[facility] Start: 03-11-2024 End: 03-11-2024 Results Review Kan MORGAN MD Work Phone: [employer] Start: 03-11-2024 End: 03-11-2024 Kan MORGAN MD Work Phone: [employer] Start: 03-09-2024 End: 03-09-2024 Medication Refill/Order Kan MORGAN MD Work Phone: [employer] Start: 03-09-2024 End: 03-09-2024 Kan MORGAN MD Work Phone: [employer] Start: 03-05-2024 End: 03-05-2024 Office outpatient visit 15 minutes Kan MORGAN MD Work Phone: [employer] Start: 03-05-2024 Review Kan MORGAN MD Work Phone: [employer]. Start: 02-24-2024 End: 02-24-2024 Results Review Kan MORGAN MD Work Phone: [employer]. Start: 02-24-2024 End: 02-24-2024 Kan MORGAN MD Work Phone: [employer]. Start: 02-24-2024 End: 02-24-2024 Medication Refill/Order Kan MORGAN MD Work Phone: [facility] [employer]. Start: 02-24-2024 End: 02-24-2024 Kan MORGAN MD Work Phone: AWAK [facility] [employer]. Start: 02-24-2024 End: 02-24-2024 ambulatory Kan MORGAN [facility] Start: 02-20-2024 Review Kan MORGAN MD Work Phone: [employer]. Start: 02-20-2024 End: 02-20-2024 Office outpatient visit 15 minutes Kan MORGAN MD Work Phone: [employer]. Start: 10-11-2023 End: 10-11-2023 ambulatory Marilin KNIGHT Facility:[facility] Start: 08-08-2023 End: 08-08-2023 Historical Summary Kan MORGAN MD Work Phone: [employer]. Start: 08-08-2023 End: 08-08-2023 Office outpatient visit 15 minutes Kan MORGAN MD Work Phone: [employer] Start: 08-08-2023 End: 08-08-2023 Kan MORGAN MD Work [facility]: [facility] Start: 08-08-2023 Review Kan MORGAN MD Work Phone: [facility] Start: 08-01-2023 End: 08-01-2023 ambulatory Marilin KNIGHT Facility:[facility] Start: 07-30-2023 End: 07-30-2023 ambulatory ROBERTO CARLOS UMANA MD Facility:[facility] Start: 05-21-2023 End: 05-21-2023 Historical Summary Kan MORGAN MD Work Phone: [facility] Start: 05-21-2023 End: 05-21-2023 Kan MORGAN MD Work Phone: [facility] Start: 04-04-2023 End: 04-04-[address] Yousif Morgan Work Phone: [facility] Work Phone: Start: 04-04-2023 End: 04-04-[address] Yousif Morgan Work Phone: [facility] Work Phone: Start: 03-28-2023 End: 03-28-2023 Office outpatient visit 15 minutes Kan MORGAN MD Work Phone: [facility] Start: 03-28-2023 Review Kan MORGAN MD Work Phone: [facility] Start: 01-31-2023 End: 01-31-[address] Yousif Morgan Work Phone: [facility] Work Phone: Start: 12-04-2022 End: 12-04-2022 Results Review Kan MORGAN MD Work Phone: [facility] Start: 12-04-2022 End: 12-04-2022 Kan MORGAN MD Work Phone: [facility] Start: 11-22-2022 End: 11-22-2022 Office outpatient visit 15 minutes Kan MORGAN MD Work Phone: [facility] Start: 11-12-2022 End: 12-11-2022 ambulatory [facility] Work Phone: Start: 11-12-2022 End: 12-11-2022 Discharged Recurring [facility] Work Phone: Start: 11-09-2022 End: 11-10-[address] Yousif Morgan Work Phone: [facility] Work Phone: Start: 11-09-2022 End: 11-10-[address] Yousif Morgan Work Phone: [facility] Work Phone: Start: 11-02-2022 End: 11-10-2022 Discharged Recurring [facility] Work Phone: Start: 10-10-2022 End: 10-11-[address] Yousif Morgan Work Phone: [facility] Work Phone: Start: 10-10-2022 End: 10-11-[address] Yousif Morgan Work Phone: [facility] Work Phone: Start: 09-10-2022 End: 09-10-[address] Yousif Morgan Work Phone: [facility] Work Phone: Start: 09-10-2022 End: 09-10-[address] Yousif Morgan Work Phone: [facility] Work Phone: Start: 08-20-[address] Yousif tabares Work Phone: [facility] Work Phone: Start: 08-15-2022 End: 08-15-[address] Yousif Morgan Work Phone: [facility] Work Phone: Start: 08-15-2022 End: 08-15-[address] Yousif Morgan Work Phone: [facility] Work Phone: Start: 07-19-2022 End: 07-19-2022 Office outpatient visit 15 minutes Kan MORGAN MD Work Phone: [facility] Start: 07-17-2022 End: 07-17-[address] 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 Comment on above: post AMI discharge p deirdre call Start: 07-10-2022 End: 07-10-2022 Historical Summary Kan MORGAN MD Work Phone: [facility] [employer] [facility] [facility] Start: 07-10-2022 End: 07-10-2022 Kan MORGAN MD Work Phone: [facility] Start: 07-06-2022 End: [facility] Start: 07-06-2022 End: 07-06-2022 Historical Summary Kan MORGAN MD Work Phone: [employer] Start: 07-06-2022 End: 07-06-2022 Kan MORGAN MD Work Phone: [facility] [employer] [employer] Start: 07-06-2022 End: 07-07-2022 Evaluation and management of inpatient Qamar Pichardo MD Work Phone: [facility] Comment on above: Unstable angina pect vargas (CMS/HCC) (HCC) (Primary Dx); Stented coronary artery Start: 07-06-2022 Non-patient / Non-visit Dr. Jaziel Morgan Work Phone: [facility] Start: 07-06-2022 Non-patient / Non-visit Dr. Jaziel Morgan Work Phone: [facility] Work Phone: Start: 07-06-2022 End: 07-06-2022 Evaluation and management of inpatient Dr. Yousif Morgan [facility]: [facility] Work Phone: Start: 07-05-2022 End: 07-30-2023 Pre-admission assessment ROBERTO CARLOS UMANA MD [facility] Start: 07-05-2022 End: 07-05-2022 Results Review Kan MORGAN MD Work Phone: [employer] Start: 07-05-2022 End: 07-05-2022 Kan MORGAN MD Work Phone: [employer] Start: 07-05-2022 End: 07-05-2022 Office outpatient visit 15 minutes Kan MORGAN MD Work Phone: [employer] Start: 03-08-2022 End: 03-08-2022 Office outpatient visit 15 minutes Kan MORGAN MD Work Phone: [employer]. Start: 01-18-2022 End: 01-18-2022 Office outpatient visit 10 minutes Kan MORGAN MD Work Phone: [employer]. Start: 10-26-2021 End: 10-26-2021 Office outpatient visit 15 minutes Kan MORGAN MD Work Phone: [employer]. Start: 09-05-2021 End: 09-05-2021 Phone Encounter Kan MORGAN MD Work Phone: [employer]. Start: 09-05-2021 End: 09-05-2021 Kan MORGAN MD Work Phone: [employer]. Start: 08-15-2021 End: 08-16-2021 Results Review Kan MORGAN MD Work Phone: [employer]. Start: 08-15-2021 End: 08-16-2021 Kan MORGAN MD Work Phone: [employer]. Start: 08-11-2021 End: 08-11-2021 Patient encounter procedure [facility] Start: 07-05-2021 End: 07-05-2021 Results Review Kan MORGAN MD Work Phone: [employer]. Start: 07-05-2021 End: 07-05-2021 Kan MORGAN MD Work Phone: [employer] Start: 06-27-2021 End: 06-27-2021 Historical Summary Kan MORGAN MD Work Phone: [employer] Start: 06-27-2021 End: 06-27-2021 Kan MORGAN MD Work Phone: [employer] Start: 06-26-2021 End: 06-26-2021 Historical Summary Kan MORGAN MD Work Phone: [employer] Start: 06-26-2021 End: 06-26-2021 Kan MORGAN MD Work Phone: [employer] Start: 06-22-2021 End: 06-22-2021 Office outpatient visit 15 minutes Kan MORGAN MD Work Phone: [employer] Start: 06-08-2021 End: 06-08-2021 Lab Only Kan MORGAN MD Work Phone: [employer] Start: 06-08-2021 End: 06-08-2021 Office outpatient visit 15 minutes Kan MORGAN MD Work Phone: [employer] Start: 06-08-2021 End: 06-08-2021 Kan MORGAN MD Work Phone: [employer] Start: 04-18-2021 End: 04-18-2021 Patient encounter procedure Kan MORGAN MD Work Phone: [employer]. Start: 04-18-2021 End: 04-18-2021 Kan MORGAN MD Work Phone: [employer] Start: 04-17-2021 End: 04-17-2021 Results Review Kan MORGAN MD Work Phone: [employer]. Start: 04-17-2021 End: 04-17-2021 Kan MORGAN MD Work Phone: [employer]. Start: 04-13-2021 End: 04-13-2021 Historical Summary Kan MORGAN MD Work Phone: [employer]. Start: 04-13-2021 End: 04-13-2021 Kan MORGAN MD Work Phone: [employer]. Start: 04-13-2021 End: 04-13-2021 Office outpatient visit 15 minutes Kan MORGAN MD Work Phone: [employer]. Start: 01-26-2021 End: 01-26-2021 Office outpatient visit 15 minutes Kan MORGAN MD Work Phone: [employer]. Start: 12-20-2020 End: 12-20-2020 Procedure Order Kan MORGAN MD Work Phone: [employer]. Start: 12-20-2020 End: 12-20-2020 Kan MORGAN MD Work Phone: [employer]. Start: 11-08-2020 End: 11-08-2020 Historical Summary Kan MORGAN MD Work Phone: [employer]. Start: 11-08-2020 End: 11-08-2020 Kan MORGAN MD Work Phone: [employer]. Start: 09-22-2020 End: 09-22-2020 Office outpatient visit 15 minutes Kan MORGAN MD Work Phone: [employer]. Start: 06-30-2020 End: 07-01-2020 Medication Refill/Order Kan MORGAN MD Work Phone: [employer]. Start: 06-30-2020 End: 07-01-2020 Kan MORGAN MD Work Phone: [employer]. Start: 03-24-2020 End: 03-24-2020 Office outpatient visit 15 minutes Kan MORGAN MD Work Phone: [employer]. Start: 03-17-2020 End: 03-17-2020 Lab Only Kan MORGAN MD Work Phone: [employer] Start: 03-17-2020 End: 03-17-2020 Kan MORGAN MD Work Phone: [employer] Start: 09-24-2019 End: 09-24-2019 Office outpatient visit 15 minutes Kan MORGAN MD Work Phone: [employer]. Start: 07-30-2019 End: 07-30-2019 Patient encounter status Kan MORGAN MD Work Phone: [employer]; [employer]. Start: 07-30-2019 End: 07-30-2019 Periodic preventive med est patient 40-64yrs Kan MORGAN MD Work Phone: [employer] Start: 04-02-2019 End: 04-02-2019 Office outpatient visit 15 minutes Kan MORGAN MD Work Phone: [employer] Start: 10-02-2018 End: 10-02-2018 Office outpatient visit 15 minutes Kan MORGAN MD Work Phone: [employer] Start: 05-28-2018 End: 05-28-2018 Telephone follow-up Kan MORGAN MD Work Phone: [employer]. Start: 05-28-2018 End: 05-28-2018 Kan MORGAN MD Work Phone: [employer]. Start: 05-27-2018 End: 05-27-2018 Lab Only Kan MORGAN MD Work Phone: [employer]. Start: 05-27-2018 End: 05-27-2018 Kan MORGAN MD Work Phone: [employer]. Start: 04-14-2018 End: 04-14-2018 Results Review Kan MORGAN MD Work Phone: [employer]. Start: 04-14-2018 End: 04-14-2018 Kan MORGAN MD Work Phone: [employer]. Start: 04-10-2018 End: 04-10-2018 Office outpatient visit 15 minutes Kan MORGAN MD Work Phone: [employer]. Start: 06-20-2017 End: 06-20-2017 Office outpatient visit 15 minutes Kan MORGAN MD Work Phone: [employer]. Start: 03-29-2017 End: 03-29-2017 Historical Summary Kan MORGAN MD Work Phone: [employer]. Start: 03-29-2017 End: 03-29-2017 Kan MORGAN MD Work Phone: [employer]. Start: 03-22-2017 End: 03-22-2017 Lab Only Kan MORGAN MD Work Phone: [employer]. Start: 03-22-2017 End: 03-22-2017 Kan MORGAN MD Work Phone: [employer]. Start: 03-21-2017 End: 03-21-2017 Office outpatient visit 15 minutes Kan MORGAN MD Work Phone: [employer]. Start: 03-14-2017 End: 03-14-2017 Historical Summary Kan MORGAN MD Work Phone: [employer]. Start: 03-14-2017 End: 03-14-2017 Kan MORGAN MD Work Phone: [employer]. Start: 03-12-2017 End: 03-12-2017 Medication Refill/Order Kan MORGAN MD Work Phone: [employer]. Start: 03-12-2017 End: 03-12-2017 Historical Summary Kan MORGAN MD Work Phone: [employer]. Start: 03-12-2017 End: 03-12-2017 Kan MORGAN MD Work Phone: [employer] Start: 06-14-2016 End: 06-14-2016 Office outpatient visit 15 minutes Kan MORGAN MD Work Phone: [employer]. Start: 03-16-2016 End: 03-16-2016 Patient encounter procedure Kan MORGAN MD Work Phone: [employer]. Start: 03-16-2016 End: 03-16-2016 Kan MORGAN MD Work Phone: [employer]. Start: 03-15-2016 End: 03-15-2016 Results Review Kan MORGAN MD Work Phone: [employer]. Start: 03-15-2016 End: 03-15-2016 Kan MORGAN MD Work Phone: [employer]. Start: 03-09-2016 End: 03-09-2016 Addendum to visit Kan MORGAN MD Work Phone: [employer]. Start: 03-09-2016 End: 03-09-2016 Kan MORGAN MD Work Phone: [employer]. Start: 03-09-2016 End: 03-09-2016 Office outpatient visit 15 minutes Kan MORGAN MD Work Phone: [employer]. Start: 02-23-2016 End: 02-23-2016 Office outpatient visit 15 minutes Kan MORGAN MD Work Phone: [employer]. Start: 12-01-2015 End: 12-01-2015 Historical Summary Kan MORGAN MD Work Phone: [employer]. Start: 12-01-2015 End: 12-01-2015 Kan MORGAN MD Work Phone: [employer]. Start: 11-21-2015 End: 11-21-2015 Follow-up encounter Kan MORGAN MD Work Phone: [employer]. Start: 11-21-2015 End: 11-21-2015 Kan MORGAN MD Work Phone: [employer]. Start: 11-17-2015 End: 11-17-2015 Office outpatient visit 15 minutes Kan MORGAN MD Work Phone: [employer]. Start: 07-14-2015 End: 07-14-2015 Office outpatient visit 15 minutes Kan MORGAN MD Work Phone: [employer]. Start: 04-07-2015 End: 04-07-2015 Office outpatient visit 15 minutes Kan MORGAN MD Work Phone: [employer]. Start: 12-30-2014 End: 12-30-2014 Office outpatient visit 15 minutes Kan MORGAN MD Work Phone: [employer]. Start: 08-26-2014 End: 08-26-2014 Office outpatient visit 15 minutes Kan MORGAN MD Work Phone: [employer]. Start: 06-30-2014 End: 06-30-2014 Follow-up encounter Kan MORGAN MD Work Phone: [employer]. Start: 06-30-2014 End: 06-30-2014 Kan MORGAN MD Work Phone: [employer]. Start: 06-24-2014 End: 06-24-2014 Lab Only Kan MORGAN MD Work Phone: [employer]. Start: 06-24-2014 End: 06-24-2014 Kan MORGAN MD Work Phone: [employer]. Start: 06-24-2014 End: 06-24-2014 Office outpatient visit 15 minutes Kan MORGAN MD Work Phone: [employer]. Start: 06-24-2014 End: 06-26-2014 Results Review Kan MORGAN MD Work Phone: [employer]. Start: 06-24-2014 End: 06-26-2014 Kan MORGAN MD Work Phone: [employer]. Start: 06-01-2014 End: 06-01-2014 Historical Summary Kan MORGAN MD Work Phone: [facility] [employer] [facility] [email or web address]. Start: 06-01-2014 End: 06-01-2014 Kan MORGAN MD Work Phone: [facility] [employer]. Start: 05-27-2014 End: 05-27-2014 Office outpatient visit 15 minutes Kan MORGAN MD Work Phone: [facility] [email or web address]. Start: 02-25-2014 End: 02-25-2014 Office outpatient visit 15 minutes Kan MORGAN MD Work Phone: [facility] [employer]. Start: 10-24-2013 End: 10-24-2013 Follow-up encounter Kan MORGAN MD Work Phone: [facility] Start: 10-24-2013 End: 10-24-2013 Kan MORGAN MD Work Phone: [facility]. Start: 10-08-2013 End: 10-08-2013 Patient encounter procedure Kan MORGAN MD Work Phone[facility] Start: 10-08-2013 End: 10-08-2013 Kan MORGAN MD Work Phone: [facility] [employer]. Start: 09-05-2013 End: 09-05-2013 Historical Summary Kan MORGAN MD Work Phone: [facility] [employer]. Start: 09-05-2013 End: 09-05-2013 Kan MORGAN MD Work Phone: [facility] [employer]. Start: 08-13-2013 End: 08-13-2013 Patient encounter procedure Kan MORGAN MD Work Phone: [employer] [facility] [employer] [facility] [email or web address]. Start: 08-13-2013 End: 08-13-2013 Kan MORGAN MD Work Phone: [facility] [employer] [facility] Start: 07-09-2013 End: 07-26-2013 Follow-up encounter Kan MORGAN MD Work Phone: [facility] [employer] [facility] [email or web address]. Start: 07-09-2013 End: 07-09-2013 Patient encounter procedure Kan MORGAN MD Work Phone: [facility] [employer] [facility] [email or web address]. Start: 07-09-2013 End: 07-26-2013 Kan MORGAN MD Work Phone: [facility] [employer]. Start: 07-09-2013 End: 07-09-2013 Medical examinations/reports status Kan MORGAN MD Work Phone: [facility] [place]; [employer] [facility] Start: 07-09-2013 End: 07-09-2013 Patient encounter procedure Kan MORGAN MD Work Phone: [facility] [employer]. Start: 07-09-2013 End: 07-09-2013 Kan MORGAN MD Work Phone: [facility] [employer]. Start: 06-04-2013 End: 06-04-2013 Patient encounter procedure Kan MORGAN MD Work Phone: [facility] [employer]. Start: 06-04-2013 End: 06-04-2013 Kan MORGAN MD Work Phone: [facility] [employer] Start: 03-12-2013 End: 03-12-2013 Patient encounter procedure Kan MORGAN MD Work Phone: [facility] [employer]. Start: 03-12-2013 End: 03-12-2013 Kan MORGAN MD Work Phone: [facility] [employer] Start: 02-23-2013 End: 02-24-2013 Results Review Kan MORGAN MD Work Phone: [facility] [employer]. Start: 02-23-2013 End: 02-24-2013 Kan MORGAN MD Work Phone: [facility] [employer]. Start: 02-23-2013 End: 02-23-2013 Lab Only Kan MORGAN MD Work Phone: [employer] [facility] Start: 02-23-2013 End: 02-23-2013 Kan MORGAN MD Work Phone: [employer] [facility] [employer]. Start: 01-26-2013 End: 01-26-2013 Patient encounter procedure Kan MORGAN MD Work Phone: [employer] [facility] [employer]. Start: 01-26-2013 End: 01-26-2013 Kan MORGAN MD Work Phone: [employer] [facility] [employer]. Start: 08-21-2012 End: 08-21-2012 Patient encounter procedure Kan MORGAN MD Work Phone: [employer] [facility] [employer]. Start: 08-21-2012 End: 08-21-2012 Kan MORGAN MD Work Phone: [employer] [facility] [employer] Start: 02-28-2012 End: 02-28-2012 Medication Refill/Order Kan MORGAN MD Work Phone: [facility] [employer]. Start: 02-28-2012 End: 02-28-2012 Kan MORGAN MD Work Phone: [employer] [facility] [employer]. Start: 08-27-2011 End: 08-27-2011 Results Review Kan MORGAN MD Work Phone: [employer] [facility] [employer]. Start: 08-27-2011 End: 08-27-2011 Kan MORGAN MD Work Phone: [employer] [facility] [employer]. Start: 08-25-2011 End: 08-25-2011 Patient encounter procedure Kan MORGAN MD Work Phone: [employer] [facility] [employer]. Start: 08-25-2011 End: 08-25-2011 Kan MORGAN MD Work Phone: [employer] [facility] [employer]. Start: 03-13-2011 End: 03-13-2011 Results Review Kan MORGAN MD Work Phone: [facility]. Start: 03-13-2011 End: 03-13-2011 Kan MORGAN MD Work Phone: [facility]. Start: 03-09-2011 End: 03-09-2011 Admission to same day surgery center Kan MORGAN MD Work Phone[facility] Start: 03-09-2011 End: 03-09-2011 Kan MORGAN MD Work Phone: [facility] [employer]. Start: 07-07-2010 End: 07-07-2010 Patient encounter procedure Kan MORGAN MD Work Phone: [employer] [facility] [employer]. Start: 07-07-2010 End: 07-07-2010 Kan MORGAN MD Work Phone: [employer] [facility] [employer]. Start: 06-16-2010 End: 06-16-2010 Patient encounter procedure Kan MORGAN MD Work Phone: [employer] [facility] [employer]. Start: 06-16-2010 End: 06-16-2010 Kan MORGAN MD Work Phone: [employer] [facility] [employer]. Start: 06-13-2010 End: 06-13-2010 Historical Summary Kan MORGAN MD Work Phone: [employer] [facility]. Start: 06-13-2010 End: 06-13-2010 Kan MORGAN MD Work Phone: [facility] 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 Start: 03-28-2023 End: 03-28-2023 Dischrg meds reconciled [...] panel - S colton or Plasma Qamar Pichardo MD Work Phone: Start: 07-07-2022 Blood count complete automated Hal Gibbons MD Work Phone: Start: 07-06-2022 Ecg routine ecg w/le ast 12 lds trcg only w/o i&r Hal Gibbons MD Work Phone: Start: 07-06-2022 Cardiac catheterizat ion study Hal Gibbons MD Work Phone: Start: 07-06-2022 End: 07-06-2022 POCT ACT Qamar Pichardo MD Work Phone: Start: 07-06-2022 End: 07-06-2022 Cardiac Stent x 3 Kan MORGAN MD Work Phone: Comment on above: FIVE total stents pl aced; 2 blockages in Cerc and 3 in the LAD, stents placed (see pt. implant card scanned under #9) Start: 07-05-2022 End: 07-05-2022 Ecg routine ecg w/least 12 lds w/i&r R YOUSIF MORGAN MD Work Phone: Start: 07-05-2022 End: 07-05-2022 Dischrg meds reconciled w/current med list Kan MORGAN MD Work Phone: Start: 03-08-2022 End: 03-08-2022 Dischrg meds reconciled w/current med list Kan MORGAN MD Work Phone: Start: 01-18-2022 End: 01-18-2022 Dischrg meds reconciled w/current med list Kan MORGAN MD Work Phone: Start: 10-25-2021 End: 10-25-2021 Screening colonoscopy Tabitha Overholt [facility] Comment on above: Unable to complete t he full scope but did biopsy some polyps. Start: 08-11-2021 CT of soft tissues o f neck with contrast Start: 07-05-2021 End: 07-05-2021 Radiologic exam chest 2 views Kan MORGAN MD Work Phone: Start: 06-11-2021 End: 06-11-2021 Flex laryngoscopy Kan MORGAN MD Work Phone: Comment on above: [place] flex lar yngoscopy; interarytenoid edema Start: 06-11-2021 End: 06-11-2021 Kan MORGAN MD Work Phone: Start: 06-08-2021 End: 06-08-2021 Dischrg meds reconciled w/current med list Kan MORGAN MD Work Phone: Start: 04-13-2021 End: 04-13-2021 Dischrg meds reconciled w/current med list Kan MORGAN MD Work Phone: Start: 04-13-2021 End: 04-13-2021 Radex ribs uni w/posteroant ch minimum 3 views Kan MORGAN MD Work Phone: Start: 04-13-2021 End: 04-13-2021 Collj & interpj physiol data min 30 min ea 30 d Kan MORGAN MD Work Phone: Start: 01-26-2021 End: 01-26-2021 Dischrg meds reconciled w/current med list Kan MORGAN MD Work Phone: Start: 12-21-2020 End: 12-21-2020 Screening mammography Tabitha Goldberg CMA Comment on above: Normal. Normal. refused 08/07 Start: 10-12-2020 End: 10-12-2020 R posterior shoulder cystic mass removal Tabitha Goldberg [employer] Comment on above: Lopez Fleming MD Start: 10-12-2020 End: 10-12-2020 HCRISTINA MAYER RN Start: 09-22-2020 End: 09-22-2020 Dischrg meds reconciled w/current med list Kan MORGAN MD Work Phone: Start: 09-22-2020 End: 09-22-2020 Srini MAYER RN Comment on above: #1 - 03/24/2020 Start: 09-22-2020 End: 09-22-2020 Urinary Incontinence Tabitha Overholt [employer] Comment on above: Negative. Start: 05-26-2020 End: 05-26-2020 Vaccination given Tabitha Goldberg [employer] Comment on above: Moderna dose #1 04/11 Moderna Booster 01/26/2021 Start: 03-24-2020 End: 03-24-2020 Dischrg meds reconciled w/current med list Kan MORGAN MD Work Phone: Start: 07-30-2019 End: 07-30-2019 Dischrg meds reconciled w/current med list Kan MORGAN MD Work Phone: Start: 04-02-2019 End: 04-02-2019 Dischrg meds reconciled w/current med list Kan MORGAN MD Work Phone: Start: 10-02-2018 End: 10-02-2018 Dischrg meds reconciled w/current med list Kan MORGAN MD Work Phone: Start: 04-10-2018 End: 04-10-2018 Dischrg meds reconciled w/current med list Kan MORGAN MD Work Phone: Start: 03-29-2017 End: 03-29-2017 Magnetic resonance imaging Kan Bhakta MD Work Phone: Comment on above: MRI 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 Attention to lateral epicondyle. Start: 05-27-2014 End: 06-01-2014 Mammogram, both breasts Kan Goodman Work Phone: Start: 02-11-1989 End: 02-11-1989 Abdominal hysterectomy Tabitha Overholt [employer] Comment on above: App[facility] time; Ovaries intact Start: 02-11-1989 End: 02-11-1989 Appendectomy Tabitha Overholt [employer] Comment on above: with hyster Bunion Left foot Tabitha Overho lt [employer] Comment on above: Mid 40s; Also neurom a Bunion Left foot CHRISTINAMARCELINO CHUNG E RN Comment on above: Mid 40s; Also neurom a Bunion Left foot CHRISTINA GRAT E RN Comment on above: Mid 40s; Also neurom a Bunion Left foot Kendy Gall ion CURRICULUM DEVELOPMENT SPECIALIST Comment on above: Mid 40s; Also neurom a Bunion Left foot Reta Vargas RMA Comment on above: Mid 40s; Also neurom a Carpal tunnel B Tabitha Overhol t [employer] Comment on above: In her 40s. Carpal tunnel B CHRISTINA MAYER RN Comment on above: In her 40s. Carpal tunnel B CHRISTINA MAYER RN Comment on above: In her 40s. Carpal tunnel B Kendy Ana on CURRICULUM DEVELOPMENT SPECIALIST Comment on above: In her 40s. Carpal tunnel B Reta Vargas RMA Comment on above: In her 40s. History of placement of stent for coronary artery disease History of heart artery stent Dr. Yousif Morgan Work Phone: Comment on above: PCI to LAD and Cx History of placement of stent for coronary artery disease History of heart artery stent Dr. Teo Velazquez MD Screening mammography CHRISTINA MAYER RN Plan of Treatment Date Care Activity Detail Author Start: 07-08-2027 Lipid panel [facility] Start: 12-03-2024 Us retroperitoneal r eal time w/image limited [employer] [facility] [employer] [facility] [email or web address]. Start: 10-22-2024 [facility] [employer] [facility] [email or web address]. Start: 07-27-2024 ambulatory Ambulatory Facility:[facility] Start: 07-01-2024 X-ray of foot, three or more views Foot min 3 Views [facility] Start: 06-18-2024 [facility]; [facility] [employer] [facility] Start: 06-18-2024 Patient encounter procedure Medical; BLOOD PRESSURE CHECK - [facility] [employer] [facility] Start: 18-Jun-2024 10:15-04:00 MD Kan MORGAN Appointment Request [facility] [employer] [facility] Start: 03-05-2024 Culture bacterial quanttative colony count urine URINE BELEN CULTURE-TITO COL COUNT ([id number]) Start: 05-Mar-2024 15:16-05:00 Request [employer] [facility] [employer]. Start: 03-05-2024 Culture bct isol&prs mptv id isolate ea urine URINE BELEN CULTURE-ID ([id number]) Start: 05-Mar-2024 15:16-05:00 Request [facility] [employer] [facility] [employer] Start: 02-20-2024 Us retroperitoneal r eal time w/image limited [employer]; [employer] [facility] [employer]. Start: 02-20-2024 End: 02-20-2024 Collj & interpj physiol data min 30 min ea 30 d [employer]; [facility] [employer] [facility] [employer]. Start: 02-06-2024 FQHC visit, estab pt Medical; ESTABLISHED PAT[facility] ROUT[facility]IS[facility] Start: 06-Feb-2024 10:15-05:00 MD Kan MORGAN [facility]ment [facility] Start: 08-08-2023 Im adm prq id subq/i m njxs ea vaccine [facility]; [facility] [employer] [facility] Start: 08-08-2023 FQ visit, estab pt Medical; ESTABLISHED PATIENT ROUTINE VISIT - [facility] Start: 08-Aug-2023 10:15-04:00 MD Kan MORGAN [facility]ment [facility] Start: 08-01-2023 FQ visit, [facility] pt Medical; ESTABLISHED PATIENT ROUTINE VISIT - [facility] Start: 01-Aug-2023 9:15 MD Kan MORGAN [facility]ment [facility] Start: 03-28-2023 FQHC visit, [facility] pt Medical; ESTABLISHED PATIENT ROUTINE VISIT - [facility] Start: 28-Mar-2023 10:30 MD Kan MORGAN [facility]ment [facility] Start: 12-04-2022 Health system eal time w/image limited [facility] [employer] [facility]; [facility] [employer] [facility] [email or web address] Start: 10-12-2022 Influenza vaccination Influenz a Vaccine (Season Ended) [facility] Start: 08-15-2022 Patient referral to dietitian [facility] Start: 07-17-2022 Patient referral [facility] Work Phone: Start: 07-06-2022 Patient discharge [facility] Start: 07-06-2022 Catheterization of vein [facility] Start: 07-06-2022 Medication not administered [facility] Start: 07-06-2022 Notification of physician [facility] Start: 07-06-2022 [facility] Start: 07-06-2022 Application of intermittent pneumatic compression device [facility] Start: 07-06-2022 Ambulation without limitation [facility] Start: 07-06-2022 Assessment of risk o f venous thromboembolism [facility] Start: 07-06-2022 Insertion of cathete r into peripheral vein [facility] Start: 07-06-2022 Measuring intake and output [facility] Start: 07-06-2022 Oxygen therapy [facility] Start: 07-06-2022 Providing care accor ding to standard [facility] Start: 07-06-2022 Referral to filter press tender head [facility] Start: 07-06-2022 Tobacco use cessatio n education [facility] Start: 07-06-2022 [facility] Start: 07-06-2022 Admission procedure [facility] Start: 07-06-2022 Following clinical p athway protocol [facility] Start: 07-05-2022 Assay of troponin quantitative [facility] Comment on above: Please call report t o Isabella [phone] before pt. leaves (or my cell [phone] if after hours). Start: 07-05-2022 Sedimentation rate r bc non-automated [facility]; [facility] Start: 07-05-2022 Comprehensive metabo lic panel [facility]; [facility] [employer] [facility] [email or web address]. Start: 07-05-2022 Blood count complete auto&auto difrntl wbc [facility]; [facility] [employer] [facility] [email or web address]. Start: 03-08-2022 Adv care pln/ no alt dcsn mkr docd or refusal [facility] [employer] [facility]; [employer] [facility] [employer] [facility] [email or web address]. Start: 03-08-2022 Destruction benign l esions up to 14 [facility] Hospital[facility]; [facility] [employer] [facility] [employer] [facility] [email or web address]. Start: 01-18-2022 Adv care pln/ no alt dcsn mkr docd or refusal [facility]; [employer] [facility] Start: 01-18-2022 Destruction premalig nant lesion 1st [facility].; [facility] Start: 06-22-2021 Radiologic exam ches t 2 views [facility].; [facility] Start: 06-08-2021 Patient Education [facility].; [facility], [employer]. Start: 03-23-2021 COVID-19 Vaccine (4 - Booster for Moderna series) COVID-19 Vaccine (4 - Booster for Moderna series) [facility] Start: 12-20-2020 End: 12-24-2020 Screening digital breast tomosynthesis bi [facility]; [facility] [employer]. Start: 09-24-2019 Screening mammograph y bi 2-view breast inc cad [facility].; [facility] [employer]. Start: 04-02-2019 Patient Education [facility].; [facility] Start: 10-02-2018 Patient Education [facility].; [facility] [employer]. Start: 04-10-2018 Patient Education [facility].; [facility] [employer] [facility] [place] [employer]. Start: 03-22-2017 Basic metabolic pane l calcium total [facility].; [facility] [employer]. Start: 03-21-2017 Culture bacterial quanttative colony count urine [facility].; [facility] [employer] [facility] [place]. Start: 03-21-2017 Culture bct isol&prs mptv id isolate ea urine [facility] [employer] [facility] [place].; [facility] [employer] [facility] [place], Inc[facility] Start: 03-16-2016 End: 03-16-2016 Removal sutures under anesthesia same surgeon [facility].; [facility] [employer]. Start: 03-09-2016 Patient Education [facility]; [facility] Start: 04-07-2015 End: 04-07-2015 Collj & interpj physiol data min 30 min ea [address] [facility]; [facility] Start: 08-13-2013 Patient Education [facility] [facility] Center[email or web address] Start: 07-09-2013 Mammogram, screening [facility] Start: 07-09-2013 Blood occult peroxid ase actv qual other sources [facility]; [facility]. Start: 08-25-[address] [facility]; [facility] Start: 03-09-2011 Exc b9 les mrgn xcp sk tg f/e/e/n/l/m 0.6-1.0cm [facility] Hospital[facility]. Start: 07-07-2010 Exc b9 les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 chest and would worsen with moving her left arm. The pain improves with rest. She had some nausea and diaphoresis. Denies dyspnea. EKG abnormal. She was taken to the laborer pole crew by Dr. Velazquez and this showed LAD with 90% stenosis, LCx with prox 80% stenosis, RCA with 30% stenosis. It was opted to transfer her to [facility] for high risk PCI. Past Medical History She has a past medical history of DJD (degenerative joint disease) and Hypertension. Surgical History She has a past surgical history that includes Cardiac catheterization; Hysterectomy; and Appendectomy. Social History She reports that she quit smoking about 2 months ago. Her smoking use included cigarettes. She doesnot have any smokeless tobacco history on file. [...] R 16, T 97.9 Relevant Results See Chrome Cleaner results. See Labs and EKGs from [place]. Assessment/Plan Principal Problem: NSTEMI (non-ST elevated myocardial infarction) (CMS/HCC) ([facility]) Active Problems: Coronary artery disease involving chipewwa coronary artery of chipewwa heart with unstable angina pectoris ([facility]) Tobacco abuse Mixed hyperlipidemia Essential hypertension Unstable angina pectoris (CMS/HCC) ([facility]) Assessment and Plan: NSTEMI/ Unstable angina/ CAD Admit to 1 [place], telemetry. Patient transferred from [place] for high risk PCI of tortuous prox LAD and tortuous LCx. Loaded with Aspirin and brilinta. Start beta tanya and high intensity statin. HTN Increase lisinopril and add beta tanya. HLD Start high intensity statin crestor 40 mg daily Tobacco use- former Ongoing Cessation. Discussed with Dr. Starr York, MECHANICAL ADJUSTER - OSTEOPATHIC MEDICINE TEACHER Associated attestation - Breana Clements MD - 07/07/2022 6:50 AM EDT I, Dr. Breana Clements, saw and evaluated the patient on 07/07/2022. I personally obtained the jeff and critical portions of the history and physical exam. I reviewed the labs, imaging studies, and electronic medical record. I reviewed the FINGERNAIL FORMER's documentation, and discussed the patient with the FINGERNAIL FORMER. I agree with the FINGERNAIL FORMER's medical decision making and have edited the note to reflect my clinical findings and my assessment and plan. 67-year-old female smoker with hyperlipidemia and hypertension who presented to [facility] with stuttering substernal chest pressure with exertion over a several week duration. She was noted tohave mildly elevated high-sensitivity troponin consistent with small non-STEMI. Diagnostic cardiac cath performed by Dr. Velazquez showing severe two-vessel coronary disease with diffuse stenosis of tortuous proximal to mid circumflex and tortuous proximal to mid LAD. Mild disease of the RCA. Given complexity of potential PCI, she was transferred to [facility]. She was loaded with aspirin and Brinlinta prior to transfer. She has no prior history of myocardial infarction, cardiomyopathy, or heart failure. On arrival, patient pain-free and in no distress. Lungs clear. Heart regular without murmur. Abdomen soft and benign. No peripheral edema. Right radial cath site warm and dry with good distal pulse and no hematoma. Labs from [place] reviewed with normal blood counts and kidney function. 80cc IV dye with diagnostic cath. Impression/Recommendations: NSTEMI/multivessel CAD--severe stenoses of proximal to mid LAD and proximal to mid circumflex, bothhighly tortuous vessels within stenotic areas. Appropriate for PCI of both vessels, but increased complexity due to stenosis length and tortuosity. Patient premedicated with aspirin and Brilinta. Currently pain-free. Two-vessel PCI advised. Risk, benefits, alternatives discussed with patient who agrees to proceed. Post PCI, plan long-term DAPT with aspirin and Brilinta, high intensity statin therapy, beta-tanya. Smoking cessation. Plan outpatient follow-up in [place] with Dr. Velazquez Tobacco abuse--complete cessation advised Dyslipidemia--initiation of high intensity statin therapy Essential hypertension, on lisinopril 5 mg twice daily. Blood pressure mildly elevated. Recommend increasing to 10 mg twice daily. Breana Clements MD documented in this [place] [id number] Note* Pre-Sedation Documentation - Hal Gibbons MD - 07/06/2022 3:11 PM EDT Sedation Plan ASA class 2 - patient with mild systemic disease Mallampati class: III - soft palate, base of uvula visible. Sedation plan: local anesthesia and moderate (conscious sedation) Risks, benefits, and alternatives discussed with patient. Plan discussed with attending. Immediate reassessment prior to sedation: Patient's status reviewed and vital signs assessed; acceptable to perform procedure and proceed to administer sedation as planned. [facility] Work Phone: [phone] Note* Pre-Sedation Documentation - Hal Gibbons MD - 07/06/2022 3:11 PM EDT Sedation Plan ASA class 2 - patient with mild systemic disease Mallampati class: III - soft palate, base of uvula visible. Sedation plan: local anesthesia and moderate (conscious sedation) Risks, benefits, and alternatives discussed with patient. Plan discussed with attending. Immediate reassessment prior to sedation: Patient's status reviewed and vital signs assessed; acceptable to perform procedure and proceed to administer sedation as planned. [facility] [employer] Work Phone: Evaluation + Plan note No data available for this section [facility] Evaluation noteNo assessment information available [facility] Work Phone: Evaluation note* Diagnosis NSTEMI (non-ST elevated myocardial infarction) (CMS/HCC) (HCC)- Primary Acute myocardial infarction, subendocardial infarction, episode of care unspecified Unstable angina pectoris (CMS/HCC) (HCC) Intermediate coronary syndrome Stented coronary artery Postsurgical percutaneous transluminal coronary angioplasty status Unstable angina pectoris (CMS/HCC) (HCC) Intermediate coronary syndrome Coronary artery disease involving chipewwa coronary artery of chipewwa heart with unstable angina pectoris (HCC) Tobacco abuse Tobacco use disorder Mixed hyperlipidemia Essential hypertension Unspecified essential hypertension NSTEMI (non-ST elevated myocardial infarction) ([facility]) (HCC) Acute myocardial infarction, subendocardial infarction, episode of care unspecified Unstable angina pectoris ([facility]) (HCC) Intermediate coronary syndrome documented in this encounter [facility]* Diagnosis Onset Date Resolution Status Chest pain acute NSTEMI, initial episode of care acute Hypertension chronic History of heart artery stent acute [id number] acute Hypertension [facility] Work Phone: Evaluation note* Diagnosis Onset Date Resolution Status History of heart artery stent acute [id number] acute Hypertension [facility] Work Phone: Evaluation note* Diagnosis Onset Date Resolution Status History of heart artery stent chronic Hypertension [facility] Work Phone: Hospital Discharge instructions No data available for this section [facility] Progress note No data available for this section [facility] Reason for referral (narrative)* Consultation (Routine) - Pending Review Specialty Diagnoses / Procedures Referred By Contact Referred To Contact Cardiac Rehabilitation / Cardiology Diagnoses Stented coronary artery Procedures SD OFFICE/OUTPATIENT [facility] 60-74 MINUTES Liz York APRN - CNP [address] [place] [address] [facility] 95 Card/Pulm Rehab [address] [place] [address] [address] [place] [address] Referral ID Status Reason Start Date Expiration Date Visits Requested Visits Authorized [id number] Pending Review Specialty Services Required 07/06/2022 07/06/2023 1 1 [facility] for referral (narrative)No reason for referral [facility] Work Phone: Chief Complaint and Reason for Visit Chief Complaint CERVICALGIA Chief Complaint ELEVATED TROPONIN ELEVATED TROPONIN ELEVATED TROPONIN S/P [facility] S/P PCI w/coronary stenting PCi with stent Reason for Visit Chest pain NSTEMI, initial episode of care Hypertension History of heart artery stent [id number] Hypertension Chief Complaint ELEVATED TROPONIN ELEVATED TROPONIN ELEVATED TROPONIN S/P [facility] S/P PCI w/coronary stenting PCi with stent PCi with stent Reason for Visit Chest pain NSTEMI, initial episode of care Hypertension History of heart artery stent [id number] Hypertension Chief Complaint S/P [facility] S/P PCI w/coronary stenting PCi with stent PCi with stent PCi with stent Reason for Visit History of heart art heidi stent [id number] Hypertension Chief Complaint S/P PCI w/coronary s tenting PCi with stent PCi with stent PCi with stent PCi with stent Chief Complaint 3 M FU Reason for Visit History of heart art heidi stent Hypertension Chief Complaint Admit Date 1 Y FU June 18, 2024 12:50p m XRAY July 01, 2024 1:28p m Reason for Visit Admit Date CAD (coronary artery disease) June 18, 2 025 12:50pm History of heart artery stent June 18, 2 025 12:50pm Hypertension June 18, 2024 12:50p m Summary Purpose Family History No Family History Records Found Relationship Condition Age at Onset Recorded Date/T eddie Not Specified Diabetes mellitus Unknown Cardiac disease Unknown Brother (s) Status:Active Comments:2. 1 di ed PEs after MVA; 1 estranged brother ? CAD Daughter (s) Status:Active Comments:1. A tw in to one of the sons Father Status:Active Comments: d. d. age 71; ME age 59; Mother Status:Active Comments: d. d. [...] Father Status:Active Comments: d. d. age 71; ME age 59; Mother Status:Active Comments: d. d. [...] Father Status:Active Comments: d. d. age 71; ME age 59; Mother Status:Active Comments: d. d. [...] Father Status:Active Comments: d. d. age 71; ME age 59; Mother Status:Active Comments: d. d. [...] Father Status:Active Comments: d. d. age 71; ME age 59; Mother Status:Active Comments: d. d. [...] Father Status:Active Comments: d. d. age 71; ME age 59; Mother Status:Active Comments: d. d. [...] Father Status:Active Comments: d. d. age 71; ME age 59; Mother Status:Active Comments: d. d. [...] Father Status:Active Comments: d. d. age 71; ME age 59; Mother Status:Active Comments: d. d. [...] Father Status:Active Comments: d. d. age 71; ME age 59; Mother Status:Active Comments: d. d. [...] Father Status:Active Comments: d. d. age 71; ME age 59; Mother Status:Active Comments: d. d. [...] Father Status:Active Comments: d. d. age 71; ME age 59; Mother Status:Active Comments: d. d. [...] Father Status:Active Comments: d. d. age 71; ME age 59; Mother Status:Active Comments: d. d. [...] Father Status:Active Comments: d. d. age 71; ME age 59; Mother Status:Active Comments: d. d. [...] Father Status:Active Comments: d. d. age 71; ME age 59; Mother Status:Active Comments: d. d. [...] Father Status:Active Comments: d. d. age 71; ME age 59; Mother Status:Active Comments: d. d. [...] Father Status:Active Comments: d. d. age 71; ME age 59; Mother Status:Active Comments: d. d. [...] Father Status:Active Comments: d. d. age 71; ME age 59; Mother Status:Active Comments: d. d. [...] Father Status:Active Comments: d. d. age 71; ME age 59; Mother Status:Active Comments: d. d. [...] Father Status:Active Comments: d. d. age 71; ME age 59; Mother Status:Active Comments: d. d. [...] Father Status:Active Comments: d. d. age 71; ME age 59; Mother Status:Active Comments: d. d. [...] Father Status:Active Comments: d. d. age 71; ME age 59; Mother Status:Active Comments: d. d. [...] Father Status:Active Comments: d. d. age 71; ME age 59; Mother Status:Active Comments: d. d. [...] Father Status:Active Comments: d. d. age 71; ME age 59; Mother Status:Active Comments: d. d. [...] Father Status:Active Comments: d. d. age 71; ME age 59; Mother Status:Active Comments: d. d. [...] Father Status:Active Comments: d. d. age 71; ME age 59; Mother Status:Active Comments: d. d. [...] Father Status:Active Comments: d. d. age 71; ME age 59; Mother Status:Active Comments: d. d. [...] Father Status:Active Comments: d. d. age 71; ME age 59; Mother Status:Active Comments: d. d. [...] Father Status:Active Comments: d. d. age 71; ME age 59; Mother Status:Active Comments: d. d. [...] Father Status:Active Comments: d. d. age 71; ME age 59; Mother Status:Active Comments: d. d. [...] Father Status:Active Comments: d. d. age 71; ME age 59; Mother Status:Active Comments: d. d. [...] Father Status:Active Comments: d. d. age 71; ME age 59; Mother Status:Active Comments: d. d. 84 yo. CABG x3 in 60s, and stents; osteoarthritis; diverticulosis Sister (s) Status:Active Comments:6. 1 d breast cancer age 60; 1 HTN Son (s) Status:Active Comments:2. 1 so n is twin to the daughter; Advance Directives No Advanced Directives Records Found Advance Directive Response Recorded Date/ Time Advance Directives on File No August 15, 2022 2:35pm Living Will No August 15, 2022 2 :35pm Power of Media Clerk No August 15, 2022 2:35pm Advance Directive Response Recorded Date/ Time Living Will No August 15, 2022 2 :35pm Power of Media Clerk No August 15, 2022 2:35pm Advance Directives on File No August 15, 2022 2:35pm Advance Directive Response Recorded Date/ Time Living Will No August 15, 2022 1 :35pm Power of Media Clerk No August 15, 2022 1:35pm Advance Directive Response Recorded Date/ Time Living Will No August 15, 2022 2 :35pm Do you have a Healthcare Power of Media Clerk? No August 15, 2022 2:35pm Additional Source Comments Goals (unrecognized section and content) Goals may be documented in a n alternate sectionGoals may be documented in an alternate sectionGoals may be documented in an alternate sectionGoals may be documented in an alternate section No data available for this sectionGoals may be documented in an alternate section INFORMATION SOURCE (unrecogn ized section and content) DATE CREATED AUTHOR 07/07/2022 [facility] DATE CREATED AUTHOR AUTHOR'S ORGANIZ ATION 08/01/2023 [facility] ([place]) DATE CREATED AUTHOR AUTHOR'S ORGANIZ ATION 07/08/2024 [facility] DATE CREATED AUTHOR AUTHOR'S ORGANIZ ATION 07/14/2024 [facility] Reason for Visit (unrecogniz ed section and content) Specialty Diagnoses / Procedures Referred By Jason t Referred To Contact Diagnoses Coronary artery disease involving chipewwa coronary artery of chipewwa heart with unstable angina pectoris (HCC) 2 [facility]ESSEL OCCLUSION, CAD Procedures . Breana Clements MD [address] [place] [id number] [address] [address] Referral ID Status Reason Start Date Expiration Date Visits Re quested Visits Authorized [id number] 1 1 Reason Onset Date Comments post AMI discharge phone call 07/10/2022 Scheduled Active and Recently Administ ered Medications (unrecognized section and content) Medication Order 07/05/2022 07/06/2022 07/07/2022 amLODIPine (Norvasc) tablet 5 mg 5 mg, Oral, Daily, First dose on Sat07/06/22 at 1800 1758 (Given - Provider: Francisco Oliver RN) 0818 (Given - Provider: Breana Das RN) aspirin chewable tablet 81 mg 81 mg, Oral, Daily, First dose on Sat07/07/22 at 0900, Recovery [facility] On Unit 0818 (Given - Provid er: Breana Das RN) carvedilol (Coreg) tablet 6.25 mg 6.25 mg, Oral, 2 times daily with meals, First dose on Sat07/06/22 at 1800 1758 (Given - Provider: Francisco Oliver RN) 0818 (Given - Provider: Breana Das RN)1700 (Canceled Entry - Provider: Automatic Discharge Provider - Comment: Automatically canceled at discontinue of medication order) pantoprazole (ProtoNix) EC tablet 40 mg 40 mg, Oral, Daily before breakfast, First dose on Sat07/07/22 at 0700, Do not crush, chew, or split. 0500 (Not Given - Provider: Lily Gibbs RN - Reason: Patient/family refused) rosuvastatin (Crestor) tablet 40 mg 40 mg, Oral, Every evening, First dose on Sat07/06/22 at 1800, Recovery [facility] On Unit 1758 (Given - Provider: Francisco Oliver RN) 1800 (Canceled Entry - Provider: Automatic Discharge Provider - Comment: Automatically canceled at discontinue of medication order) sodium chloride 0.9% (NS) flush 5-40 mL 5-40 mL, IntraVENous, Every 12 hours, First dose on Sat07/06/22 at 1645, Recovery & On Unit, For Line Patency: [...] Midline or Central Line = 20 mL/lumen 1645 (Canceled Entry - Provider: Automatic Discharge Provider - Comment: Automatically canceled at discontinue of medication order) 0445 (Not Given - Provider: Lily Gibbs RN - Reason: Other)1645 (Canceled Entry - Provider: Automatic Discharge Provider - Comment: Automatically canceled at discontinue of medication order) ticagrelor (Brilinta) tablet 90 mg 90 mg, Oral, 2 times daily, First dose on Sat07/06/22 at 2100, For 365 days 1927 (Given - Provider: Lily Gibbs, EDVIN) 0818 (Given - Provider: Breana Das RN) Continuous Medication Order 07/05/2022 07/06/2022 07/07/2022 sodium [...] Agata Botello RN)1602 (Given - Provider: Agata Botello RN) heparin injection (CANCELED) IntraVENous, As needed, Starting on Sat07/06/22 at 1530, Intraprocedure 1530 (Given - Provider: Agata Botello RN)1610 (Given - Provider: Agata Botello RN) iopamidol (Isovue-300) 61 % injection (CANCELED) [...] Intraprocedure 1522 (Given - Provider: Agata Botello RN) nitroglycerin (Nitrostat) SL tablet 0.4 mg 0.4 mg, SubLINGual, Every 5 min PRN, chest pain, Starting on Sat07/06/22 at 1732, May administer up to 3 doses per episode. sodium chloride 0.9 % infusion (COMPLETED) IntraVENous, Continuous PRN, Starting on Sat07/06/22 at 1616, Intraprocedure 1616 (New Bag - Provider: Agata Botello RN - Comment: peripheral IV) sodium chloride [...] Care Teams (unrecognized sec tion and content) Team Status: Active Member Role Status Dates Dr. Yousif Morgan MD Primary Care Provider Active Team Status: Inactive Member Role Status Dates Dr. Yousif Morgan MD Primary Care Provider, Referring Provider Active Marilin Hutchinson PA, PA Attending Provider Active Team Status: Inactive Member Role Status Dates Dr. Yousif Morgan MD Primary Care Provider Active Dr. Teo Velazquez MD Attending Provider, Referring Pro vider Active Vallez Filter Operator Relationship Specialty Start Date End Date [facility], [facility] [address] [place] [address] PCP - General 07/06/22 Vallez Filter Operator Relationship Specialty Start Date End Date [facility] [address] [place] [address] PCP - General 07/06/22 Team Status: Active Member Role Status Dates Dr. Yousif Morgan MD Primary Care Provider Active Dr. Fabricio Uribe MD Admit Provider, Attending Provider, Other Provider Active Dr. Teo Velazquez MD Other Provider Active Team Status: Active Member Role Status Dates Dr. Yousif Morgan MD Primary Care Provider Active Dr. Fabricio Uirbe MD Admit Provider, Other Provide r Active Dr. Teo Velazquez MD Attending Provider, Other Provide r Active Dr. Breana Ross DO Other Provider Active Team Status: Inactive Member Role Status Dates Dr. Yousif Morgan MD Primary Care Provider Active Dr. Fabricio Uribe MD Admit Provider, Other Provide r Active Dr. Teo Velazquez MD Other Provider Active Dr. Breana Ross DO Attending Provider Active Team Status: Active Member Role Status Dates Dr. Yousif Morgan MD Primary Care Provider Active Dr. Teo Velazquez MD Attending Provider, Referring Pro vider Active Team Status: Inactive Member Role Status Dates Dr. Yousif Morgan MD Primary Care Provider Active Marilin KNIGHT PA Attending Provider, Referr ing Provider Active Team Status: Inactive Member Role Status Dates Dr. Yousif Morgan MD Primary Care Provider Active Start: March 18, 2024 End: March 18, 2024 Marilin KNIGHT, PA Attending Provider Active Start: March 18, 2024 End: March 18, 2024 Marilin Hutchinson PA, PA Referring Provider Active Start: March 18, 2024 End: March 18, 2024 Team Status: Inactive Member Role Status Dates Dr. Yousif Morgan MD Primary Care Provider Active Start: June 18, 2024 End: June 18, 2024 Dr. Yousif Morgan MD Referring Provider Active Start: June 18, 2024 End: June 18, 2024 Dr. Teo Velazquez MD Attending Provider Active S tart: June 18, 2024 End: June 18, 2024 Team Status: Inactive Member Role Status Dates Dr. Yousif Morgan MD Primary Care Provider Active Start: July 01, 2024 End: July 01, 2024 Dr. Teo Velazquez MD Attending Provider Active S tart: July 01, 2024 End: July 01, 2024 FOR RECORDS PERTAINING TO PATIENTS WHO ARE [...] BE BASED ON THE PRIMARY CLINICAL RECORDS. [employer] provides no warranty or guarantee of the accuracy or completeness of information in this document.
--- NOTE | 2024-07-27 19:58 | STRESSREP ---
Stress Test Report Exercise myocardial perfusion stress test. 69-year-old lady with a history of coronary artery disease Stress protocol: Resting EKG demonstrates normal sinus rhythm with a rate of 59 bpm resting blood pressure is 110/64 mmHg. The patient exercised according to the regular Dc protocol for a total duration of 7 minutes and 40 seconds attaining a maximum heart rate of 118 bpm which was 77% of maximum predicted heart rate; the maximum workload was 10.4 metabolic equivalents. At rest there were no ST or T wave changes noted to suggest ischemia and at peak exercise upsloping ST changes only were noted which did not meet the criteria for ischemia. No clinical angina was noted the test was terminated due to the target heart rate being achieved/fatigue. The peak blood pressure was 160/64 mmHg. Rate-pressure product was 17,200 occasional premature ventricular complexes were noted during recovery. Myocardial perfusion protocol. 11.6 mCi of technetium 99m sestamibi was injected at rest. The patient exercised according to regular Dc protocol for total duration of 7 minutes and 40 seconds and at peak exercise 33.1 mCi of technetium 99m sestamibi was injected stress images were obtained stress and rest images were reconstructed in comparing the short axis vertical long and horizontal long axis. Gated images were also obtained. Perfusion SPECT analysis: Review of the stress images demonstrate normal uptake of tracer noted in all areas of the myocardium. The resting images similarly demonstrate normal uptake of tracer noted in all areas of the myocardium. No areas of reversibility are noted to suggest ischemia no previous infarct was noted. Gated SPECT analysis: The gated ejection fraction is 75%. Conclusion: Normal exercise myocardial perfusion stress test at a high workload Preserved ejection fraction.
== END | disposition home or self-care (01) ==
LOC: CVS 06:12
PROVIDERS: PCP Family Medicine; Referring Provider Internal Medicine Cardiovascular Disease; Visit Provider Internal Medicine Cardiovascular Disease
DX: I25.10 Atherosclerotic heart disease of native coronary artery without angina pectoris (principal)
CPT/HCPCS: 78452; 93017; A9500; A4216

== ENCOUNTER → 2024-10-09 | Outpatient (CLI) | payer MEDICARE, SELFPAY ==
[2022-10-17 10:25] VITALS: BMI 27.1
[2024-10-09 11:22] LABS: AST(SGOT) 16 U/L (<=31); Alanine Aminotransfer ALT/SGPT 12 U/L (<=34); Albumin, Serum 3.8 g/dL (3.4-4.8); Alkaline Phosphatase 87 U/L (35-104); Bilirubin, Direct 0.17 mg/dL (0.00-0.30); Cholesterol 161 mg/dL (<=200); Globulin 2.7 g/dL (2.2-4.2); Low Density Lipoprotein Calc. 94 mg/dL; Triglycerides 151 mg/dL; Very Low Density Lipoprotein 30 mg/dL (5-40); cholesterol:hdl ratio screen 4.38
== END | disposition home or self-care (01) ==
LOC: LAB 10:30
PROVIDERS: PCP Family Medicine; Referring Provider Physician Assistant Medical; Visit Provider Physician Assistant Medical
DX: E78.00 Pure hypercholesterolemia, unspecified (principal)
CPT/HCPCS: 36415; 80061; 80076